=== PATIENT | female | born 1980 | race African-American/Black ===

== ENCOUNTER 2018-05-09 10:57 | Emergency (ER) | payer SELFPAY ==
--- OUTSIDE RECORDS SUMMARY | 2018-05-09 11:01 | XMS REPORT | Clinical Summary ---
:1980 Author Organization [facility] Address [address] [place] [address] Phone Care Team Providers Name Role Phone Unavailable Primary Care Provider Unavailable Allergies No Known Allergies Current Medications No known medications Active Problems Problem Noted Date Conversion disorder 07/08/2017 Depression, unspecified depression type 07/08/2017 Acute ischemic stroke ([facility]) 07/04/2017 Encounters Date Type Specialty Care Team Description 07/04/2017 - Hospital Encounter General Internal Lazaridis, Acute ischemic 07/08/2017 Medicine MD Ben stroke ([facility]);Left Naila Devries, hemiplegia ([facility]);Other [place], constipation;Convers Toy Porter MD ion disorder;Depression, unspecified depression type after 05/08/2017 Family History Medical History Relation Name Comments Diabetes Mother Lupus Neg Hx Relation Name Status Comments Mother Social History Tobacco Use Types Packs/Day Years Used Date Never Smoker Sex Assigned at Date Recorded Not on file Last Filed Vital Signs Vital Sign Reading Time Taken Blood Pressure 112/74 07/08/2017 3:00 PM CDT Pulse 90 07/08/2017 3:00 PM CDT Temperature 35.9 C (96.6 F) 07/08/2017 3:00 PM CDT Respiratory Rate 18 07/08/2017 3:00 PM CDT Oxygen Saturation 90% 07/08/2017 3:00 PM CDT Inhaled Oxygen Concentration - - Weight 59.2 kg (130 lb 8.2 oz) 07/04/2017 3:00 PM CDT Height 160 cm (5' 3") 07/04/2017 3:00 PM CDT Body Mass Index 23.12 07/04/2017 3:00 PM CDT Plan of Treatment Not on file Results ECHOCARDIOGRAM REPORT - SCAN (09/12/2017 11:01 AM)RHYTHM STRIP - SCAN (2016 2:11 PM)CBC with platelet count + automated diff (07/07/2017 4:52 AM) Only the most recent of3 resultswithin the time period is included. Component Value Ref Range WBC 5.5 3.5 - 10.5 K/L RBC 4.09 3.93 - 5.22 M/L Hemoglobin 12.5 11.2 - 15.7 GM/DL Hematocrit 36.6 34.1 - 44.9 % MCV 89.5 79.4 - 94.8 fL MCH 30.6 25.6 - 32.2 pg MCHC 34.2 32.2 - 35.5 GM/DL RDW 13.5 11.7 - 14.4 % Platelets 270 150 - 450 K/CU MM MPV 10.1 9.4 - 12.3 fL nRBC 0 0 - 0 /100 WBC % Neutros 60 % % Lymphs 30 % % Monos 8 % % Eos 2 % % Baso 0 % # Neutros 3.29 1.56 - 6.13 K/L # Lymphs 1.62 1.18 - 3.74 K/L # Monos 0.42 (H) 0.24 - 0.36 K/L # Eos 0.11 0.04 - 0.36 K/L # Baso 0.01 0.01 - 0.08 K/L Immature Granulocytes-Relative 0 0 - 1 % Specimen Performing Laboratory Blood [facility] [address] [address] CBC with platelet count + automated diff (07/07/2017 4:52 AM)Only the most recent of3 resultswithin the time period is included. Specimen Performing Laboratory Blood Narrative The following orders were created for panel order CBC with platelet count + automated diff. Procedure Abnormality Status --------- ------ CBC with platelet count ...[[id number]]AbnormalFinal result Please view results for these tests on the individual orders. Basic Metabolic Panel (07/07/2017 4:52 AM)Only the most recent of3 resultswithin the time period is included. Component Value Ref Range Sodium 140 136 - 145 meq/L Potassium 4.1 3.5 - 5.1 meq/L Chloride 109 (H) 98 - 107 meq/L CO2 22 22 - 29 meq/L BUN 8 7 - 21 mg/dL Creatinine 1.02 0.57 - 1.25 mg/dL Glucose 86 70 - 105 mg/dL Calcium 10.2 8.4 - 10.2 mg/dL EGFR 74Comment: ESTIMATED GFR IS NOT ACCURATE mL/min/1.73 sq m CREATININE CLEARANCE IN PREDICTING GLOMERULAR FILTRATION RATE. ESTIMATED GFR IS NOT APPLICABLE FOR DIALYSIS PATIENTS. Specimen Performing Laboratory Blood [address] [address] POC-Glucose meter (07/06/2017 6:29 AM)Only the most recent of6 resultswithin the time period is included. Component Value Ref Range POC-Glucose Meter 103Comment: TESTED AT [address] 70 - 110 mg/dL [id number] Specimen Performing Laboratory Blood [address] [address] Manual Differential (07/06/2017 4:04 AM) Component Value Ref Range Total Counted Specimen Performing Laboratory Blood - Arm, [address] [address] Sedimentation rate (07/06/2017 4:04 AM) Component Value Ref Range Sed Rate 21 (H) 0 - 20 mm/HR Specimen Performing Laboratory Blood - Arm, [address] [address] MR brain without IV contrast (07/05/2017 10:36 PM) Specimen Performing Laboratory GE RIS Narrative FINAL REPORT EXAMINATION: BRAIN MRI INDICATION: STROKE Technique: Multiplanar imaging was performed with multiple pulse sequences including sagittal T1, coronal T1, axial FLAIR, axial T2, axial gradient echo and axial diffusion with ADC mapping. FINDINGS: Compared with brain CTA 07/04/2017. Brain MRI: No evidence of acute intracranial hemorrhage, mass effect, edema, hydrocephalus, midline shift or abnormal extra-axial fluid collection. The ventricles are normal in caliber. No evidence of restricted diffusion with a matching ADC defect. The intracranial extra-axial structures are unremarkable. Appropriate flow flow voids are noted within the major dural sinuses as well as the vessels of the [place]. The orbits are unremarkable. The paranasal sinuses, tympanic cavities and mastoid air cells are well pneumatized. IMPRESSION: Unremarkable brain MRI. No evidence of restricted diffusion / acute ischemia. Signed: Obdulia Felipe MD Report Verified Date/Time:07/05/2017 23:30:05 Reading Location: [address] Reading Room Procedure Note Interface, External Ris In - 07/05/2017 11:32 PM CDT FINAL REPORT EXAMINATION: BRAIN MRI INDICATION: STROKE Technique: Multiplanar imaging was performed with multiple pulse sequences including sagittal T1, coronal T1, axial FLAIR, axial T2, axial gradient echo and axial diffusion with ADC mapping. FINDINGS: Compared with brain CTA 07/04/2017. Brain MRI: No evidence of acute intracranial hemorrhage, mass effect, edema, hydrocephalus, midline shift or abnormal extra-axial fluid collection. The ventricles are normal in caliber. No evidence of restricted diffusion with a matching ADC defect. The intracranial extra-axial structures are unremarkable. Appropriate flow flow voids are noted within the major dural sinuses as well as the vessels of the [place]. The orbits are unremarkable. The paranasal sinuses, tympanic cavities and mastoid air cells are well pneumatized. IMPRESSION: Unremarkable brain MRI. No evidence of restricted diffusion / acute ischemia. Signed: Obdulia Felipe MD Report Verified Date/Time: 07/05/2017 23:30:05 Reading Location: [address] Reading Room 2D Echo W/Doppler(CW/PW/Color) with saline (07/05/2017 10:51 AM) Component Value Ref Range Ejection Fraction Specimen Performing Laboratory [facility] Narrative Transthoracic Echocardiography Report (TTE) Demographics Patient NameTAYLOR, DARLADate of Study 2016 GenderFemale Visit [id number] RaceBlack Number [id number] Number Date of 1980 Referring Physician Age 37 year(s) Private Watchman Mariann Downing [facility] Interpret Wili Tarango MD FellowAlexander Postkarthikeyan Lugo MD Procedure Type of Study TTE procedure:2DECHO W DOPPLER(CW/PW/COLOR) (Routine) Indications:Stroke . Clinical History ACUTE ISCHEMIC STROKE HGB 10.9 HCT 32.7 % Contrast Medium: Bubble Study. Height: 63 inches Weight: 58.97 kg (130 lbs) BSA: 1.61 m^2 BMI: 23.03 kg/m^2 HR: 91 bpm BP: 104/70 mmHg Summary IV saline contrast injection was negative for a PFO (patent foramen ovale) at rest and post Valsalva . The left ventricle is chamber size (by vol index) is normal (female - LVED vol - 29-61ml/m2). No evidence of LV hypertrophy. All of the LV segments have mildly decreased systolic function The basal, mid and apical inferolateral pitts are hypokinetic EF by quantitative estimation is 45-49% Grade I diastolic dysfunction A trace of tricuspid regurgitation. Estimated peak systolic pressure is at least 20-25 mmHg. Previous Study No prior exam available for comparison. Signature Findings Rhythm/BPRegular rhythm during the exam. Left Ventricle The left ventricle is chamber size (by vol index) is normal (female - LVED vol - 29-61ml/m2). No evidence of LV hypertrophy. All of the LV segments have mildly decreased systolic function The basal, mid and apical inferolateral pitts are hypokinetic EF by quantitative estimation is 45-49% Grade I diastolic dysfunction Left AtriumLA size is normal . Right VentricleRV chamber size is mildly enlarged . Global RV systolic function is preserved. Right Atrium RA size - normal. Atrial SeptumIV saline contrast injection was negative for a PFO (patent foramen ovale) at rest and post Valsalva . Aortic Valve Normal AoV structure and function. Mitral Valve Normal MV structure and function. Tricuspid ValveNormal TV structure and function by available views and Doppler. A trace of tricuspid regurgitation. Estimated peak systolic pressure is at least 20-25 mmHg. Pulmonic Valve PV is not well visualized; function appears normal by Doppler visualized. AortaAortic root size (SInus of Valsalva diameter) is normal . PericardiumNo significant pericardial effusion is visualized. IVC/SVC/PA/PV/PleuralThe inferior vena cava size is normal . The estimated RA pressure by IVC dynamics is approximately 5-10mmHg . Chambers/Structures Left Atrium LA Volume: 31.39 ml LA Area: 13.71 cm^ 2 LA Vol. Index: 19 ml/m^2 Left Ventricle LVIDd: 3.62 cmLVEDV 2D :55.3 ml LVIDs: 2.8 cm LVESV 2D :29.45 ml LV Septum Diastolic: 0.83 cm LV Septum Systolic: 1.07 cm LV PW Diastolic: 0.8 cm LV FS: 22.7 % LV PW Systolic: 1.11 cm LV ESV (Cubed): 21.95 cc LVOT Diameter: 1.8 cm LV ESV (Teich):29.55 ml LV SV (Teich):25.61 ml LV SI (Teich):15.91 ml/m^2 LVEF 2D Teich: 46.8 % Shunts QS:45.63 ml Doppler/Quantitative Measurements LVOT Peak Velocity: 0.91 m/s Peak Gradient: 3.3 mmHg Mean Velocity: 0.57 m/s Mean Gradient: 1.54 mmHg LVOT Diameter: 1.8 cm LVOT VTI: 17.93 cm LVOT Area: 2.54 cm^2LVOT SV:45.6 ml LVOT CO: 4.15 l/min LVOT CI: 2.58 l/min/m^2 Tricuspid Valve TR Velocity: 2.12 m/s TR Gradient: 17.98 mmHg Procedure Note Interface, External Ris In - 07/05/2017 6:02 PM CDT Transthoracic Echocardiography Report (TTE) Demographics Patient Name MARIANNA SWANSON Date of Study 07/05/2017 Gender Female Visit Number [id number] Race Black Room Number [id number] Number Date of 1980 Referring Physician Age 37 year(s) Private Watchman Mariann Downing RDCS Interpreting Juan Tarango MD Fellow Boogie Lugo MD Procedure Type of Study TTE procedure:2DECHO W DOPPLER(CW/PW/COLOR) (Routine) Indications:Stroke . Clinical History ACUTE ISCHEMIC STROKE HGB 10.9 HCT 32.7 % Contrast Medium: Bubble Study. Height: 63 inches Weight: 58.97 kg (130 lbs) BSA: 1.61 m^2 BMI: 23.03 kg/m^2 HR: 91 bpm BP: 104/70 mmHg Summary IV saline contrast injection was negative for a PFO (patent foramen ovale) at rest and post Valsalva . The left ventricle is chamber size (by vol index) is normal (female - LVED vol - 29-61ml/m2). No evidence of LV hypertrophy. All of the LV segments have mildly decreased systolic function The basal, mid and apical inferolateral pitts are hypokinetic EF by quantitative estimation is 45-49% Grade I diastolic dysfunction A trace of tricuspid regurgitation. Estimated peak systolic pressure is at least 20-25 mmHg. Previous Study No prior exam available for comparison. Signature Findings Rhythm/BP Regular rhythm during the exam. Left Ventricle The left ventricle is chamber size (by vol index) is normal (female - LVED vol - 29-61ml/m2). No evidence of LV hypertrophy. All of the LV segments have mildly decreased systolic function The basal, mid and apical inferolateral pitts are hypokinetic EF by quantitative estimation is 45-49% Grade I diastolic dysfunction Left Atrium LA size is normal . Right Ventricle RV chamber size is mildly enlarged . Global RV systolic function is preserved. Right Atrium RA size - normal. Atrial Septum IV saline contrast injection was negative for a PFO (patent foramen ovale) at rest and post Valsalva . Aortic Valve Normal AoV structure and function. Mitral Valve Normal MV structure and function. Tricuspid Valve Normal TV structure and function by available views and Doppler. A trace of tricuspid regurgitation. Estimated peak systolic pressure is at least 20-25 mmHg. Pulmonic Valve PV is not well visualized; function appears normal by Doppler visualized. Aorta Aortic root size (SInus of Valsalva diameter) is normal . Pericardium No significant pericardial effusion is visualized. IVC/SVC/PA/PV/Pleural The inferior vena cava size is normal . The estimated RA pressure by IVC dynamics is approximately 5-10mmHg . Chambers/Structures Left Atrium LA Volume: 31.39 ml LA Area: 13.71 cm^2 LA Vol. Index: 19 ml/m^2 Left Ventricle LVIDd: 3.62 cm LVEDV 2D:55.3 ml LVIDs: 2.8 cm LVESV 2D:29.45 ml LV Septum Diastolic: 0.83 cm LV Septum Systolic: 1.07 cm LV PW Diastolic: 0.8 cm LV FS: 22.7 % LV PW Systolic: 1.11 cm LV ESV (Cubed):21.95 cc LVOT Diameter: 1.8 cm LV ESV (Teich):29.55 ml LV SV (Teich):25.61 ml LV SI (Teich):15.91 ml/m^2 LVEF 2D Teich: 46.8 % Shunts QS:45.63 ml Doppler/Quantitative Measurements LVOT Peak Velocity: 0.91 m/s Peak Gradient: 3.3 mmHg Mean Velocity: 0.57 m/s Mean Gradient: 1.54 mmHg LVOT Diameter: 1.8 cm LVOT VTI: 17.93 cm LVOT Area: 2.54 cm^2 LVOT SV:45.6 ml LVOT CO: 4.15 l/min LVOT CI: 2.58 l/min/m^2 Tricuspid Valve TR Velocity: 2.12 m/s TR Gradient: 17.98 mmHg Beta-2 glycoprotein antibodies (07/05/2017 4:48 AM) Component Value Ref Range B2 Glcoprotein Ab Profile Refer to individual B2-Glycoprotein IgG, IgM and IgA results. Specimen Performing Laboratory Blood [facility] [address] [place] [address] Hexagonal Phospholipid (07/05/2017 4:47 AM) Component Value Ref Range Hexagonal Phospholipid Negative Specimen Performing Laboratory Blood [address] [address] Vitamin B12 and Folate (07/05/2017 4:47 AM) Component Value Ref Range Vitamin B12 726 213 - 816 pg/mL Folate 12.3 >=7.0 ng/mL Specimen Performing Laboratory [address] [address] Narrative Effective 10/07/2014: Folate Reference Range Change New: >=7.0Previous: >=5.4 TSH/Free T4 If Indicated (07/05/2017 4:47 AM) Component Value Ref Range TSH 3.65 0.35 - 4.94 uIU/mL Specimen Performing Laboratory [address] [address] Troponin I (07/05/2017 4:47 AM) Component Value Ref Range Troponin I 0.01 0.00 - 0.03 ng/mL Specimen Performing Laboratory [address] [address] Narrative Effective 10/07/2014: Reference Range Change New: 0.00-0.03 Previous 0.00-0.15 Troponin I (TnI) levels must be interpreted in the context of the presenting symptoms and the clinical findings. Elevated TnI levels indicate myocardial damage, but are not specific for ischemic heart disease. Elevated TnI levels are seen in patients with other cardiac conditions (including myocarditis and congestive heart failure), and slight TnI elevations occur in patients with other conditions, including sepsis, renal failure, acidosis, acute neurological disease, and persistent tachyarrhythmia. Fasting Rheumatoid factor Ab, reflex to titer (07/05/2017 4:47 AM) Component Value Ref Range Rheumatoid Factor Negative Specimen Performing Laboratory [address] [address] RPR (07/05/2017 4:47 AM) Component Value Ref Range RPR Nonreactive Nonreactive Specimen Performing Laboratory [address] [address] Cardiolipin Antibodies, IgG and IgM (07/05/2017 4:47 AM) Component Value Ref Range Anticardiolipin IgG <1.6 GPL Anticardiolipin IgM 0.2 MPL Specimen Performing Laboratory Blood [address] [address] Narrative Anticardiolipin IgG Result Interpretation: NEG:<20 GPL;U/ml POS:>/=20 GPL;U/ml Anticardiolipin IgM Result Interpretation: NEG:<20 MPL;U/ml POS:>/=20 MPL;U/ml Prothrombin time/INR (07/05/2017 4:47 AM) Component Value Ref Range Protime 14.3 11.7 - 14.7 seconds INR 1.1 <=5.9 Specimen Performing Laboratory Blood [place] [id number] Narrative RECOMMENDED COUMADIN/WARFARIN INR THERAPY RANGES STANDARD DOSE: 2.0 - 3.0 Includes: PROPHYLAXIS for venous thrombosis, systemic embolization; TREATMENT for venous thrombosis and/or pulmonary embolus. HIGH RISK: Target INR is 2.5-3.5 for patients with mechanical heart valves. Dilute Jesse Viper Venom (DRVV) (07/05/2017 4:47 AM) Component Value Ref Range Protime 14.5 11.7 - 14.7 seconds INR 1.1 <=5.9 PTT 28.6 22.5 - 36.0 seconds Interpretations Negative screen for Lupus Anticoagulant Pathologist: Angel Hamilton M.D. (electonic signature) DRVV Screen Ratio 0.59 <1.20 Specimen Performing Laboratory Blood [address] [address] Narrative Effective 03/25/2014: Test Method Change DRVV Screen Ratio, DRVV 1/1 Screen Ratio, DRVV Confirm Ratio, DRVV Normalized Ratio Reference Range: <1.2 Protime Reference Range Change New: 11.7-14.7Previous: 9.8-12.0 PTT Reference Range Change New: 22.5-36.0Previous: 25.8-34.5 Anti-Nuclear Antibody (MEI) (07/05/2017 4:47 AM) Component Value Ref Range MEI Negative Negative Specimen Performing Laboratory Blood [address] [address] Hemoglobin A1c - Fasting (07/05/2017 4:47 AM) Component Value Ref Range Hemoglobin A1C 5.0Comment: POSSIBLE HEMOGLOBIN S VARIANT NOTED IN 4.3 - 6.1 % HEMOGLOBIN A1C CHROMATOGRAPH. SUGGEST HEMOGLOBIN ELECTROPHORESIS IF CLINICALLY INDICATED. Specimen Performing Laboratory Blood [address] [address] Narrative Fasting Creatine Kinase (CK), Total and MB (07/05/2017 4:47 AM) Component Value Ref Range Total CK 100 29 - 200 U/L CK-MB 0.4 0.0 - 6.6 ng/mL MB Relative Index 0.4 % Specimen Performing Laboratory Blood [address] [address] Narrative Effective 10/07/2014: CK-MB Reference Range Change New: 0.0-6.6Previous: 0.0-4.9 CK-MB Reference Range: <6.7Normal 6.7-10.0Borderline >10.0 Abnormal Fasting Fasting Hepatic function panel (07/05/2017 4:47 AM) Component Value Ref Range Protein, Total 6.1 6.0 - 8.3 gm/dL Albumin 3.2 (L) 3.5 - 5.0 g/dL Total Bilirubin 0.5 0.2 - 1.2 mg/dL Bilirubin, Direct 0.2 0.1 - 0.5 mg/dL Alkaline Phosphatase 54 40 - 150 U/L AST 14 5 - 34 U/L ALT 6 6 - 55 U/L Specimen Performing Laboratory Blood [address] [address] Narrative Fasting Fasting lipid panel (07/05/2017 4:47 AM) Component Value Ref Range Triglycerides 65 mg/dL Cholesterol 140 mg/dL HDL 39 mg/dL LDL Calculated 88 mg/dL Specimen Performing Laboratory Blood [address] [address] Narrative Triglyceride Reference Range: Low Risk <150 [id number] High Risk 200-499 Very High Risk>=500 Cholesterol Reference Range: Low Risk <200 [id number] High Risk>240 HDL Cholesterol Reference Range: Low Risk >=60 High Risk <40 LDL Cholesterol Reference Range: Optimal<100 Near Uiqodsb081-005 [id number] Very High >=190 Fasting Rapid drug screen, urine (07/04/2017 3:59 PM) Component Value Ref Range Barbiturate Screen Negative Negative Benzodiazepine Screen Negative Negative Cocaine (Metab.) Screen Negative Negative Methadone Screen Negative Negative Opiate Screen Negative Negative Cannabinoid Screen Negative Negative Amph/Methamph Screen Negative Negative Phencyclidine Screen Negative Negative Oxycodone Screen Negative Negative Specimen Performing Laboratory Urine - Urine, Voided [address] [address] Narrative DRUGCUTOFF CONC. Cocaine 300 ng/mL Gzpoxfaxgav31 ng/mL Hualospjtrehlr140 ng/mL Barbiturate 200 ng/mL Jvjqilmsjofpu51 ng/mL Gmkgvr369 ng/mL Methadone 300 ng/mL Amphetamine/ 1000 ng/mL Methamphetamine Oxycodone 300 ng/mL This assay provides an unconfirmed qualitative test result for the clinical management of patients in emergency situations. Chain of custody not maintained. Some wvrh-xhi-njrrbpe medications, as well as adulterants, may cause inaccurate results. Clinical correlation should be applied. A more comprehensive drug screen or confirmation of a detected drug may be performed upon request. Urinalysis w/Microscopic (07/04/2017 3:59 PM) Component Value Ref Range Color, UA Yellow Clarity, UA Hazy Specific [place], UA 1.016 1.001 - 1.035 pH, UA 6.5 5.0 - 8.0 Protein, UA 20 mg/dL (A) Negative Glucose, UA Negative Negative Ketones, UA Trace (A) Negative Bilirubin, UA Negative Negative Blood, UA Large (A) Negative Nitrite, UA Negative Negative Leukocytes, UA Negative Negative Urobilinogen, UA 0.2 0.2 - 1.0 mg/dL RBC, UA 102 /HPF WBC, UA 19 /HPF Squam Epithel, UA 6 /HPF Specimen Source Urine, Voided Specimen Performing Laboratory Urine - Urine, Voided [address] [address] ECG 12 lead (07/04/2017 3:26 PM) Specimen Performing Laboratory GE MUSE Narrative Ventricular Rate 74 BPM Atrial Rate 74 BPM P-R Interval 136 ms QRS Duration 80 ms Q-T Interval 392 ms QTC Calculation(Bazett) 435 ms P [place] 45 degrees R [place] 64 degrees T [place] 50 degrees Normal sinus rhythm Normal ECG No previous ECGs available Confirmed by Kalia HENSLEY MICHAEL ([id number]) on 07/05/2017 8:03:54 AM Procedure Note Interface, External Ris In - 07/05/2017 8:04 AM CDT Ventricular Rate 74 BPM Atrial Rate 74 BPM P-R Interval 136 ms QRS Duration 80 ms Q-T Interval 392 ms QTC Calculation(Bazett) 435 ms P [place] 45 degrees R [place] 64 degrees T [place] 50 degrees Normal sinus rhythm Normal ECG No previous ECGs available Confirmed by Kalia HENSLEY MICHAEL ([id number]) on 07/05/2017 8:03:54 AM CTA carotid (07/04/2017 3:00 PM) Specimen Performing Laboratory GE RIS Narrative FINAL REPORT CTA head and neck with contrast INDICATION: Stroke, right MCA syndrome. TECHNIQUE: Axial noncontrast CT images of the head were obtained. Subsequently, axial intravenous contrast enhanced CTA images of the head and neck were obtained. Multiplanar and 3-D volume rendered reconstruction images were generated on a separate workstation for better delineation of the vascular anatomy. This exam was performed according to our departmental dose optimization program which includes automated exposure control, adjustment of the mA and/or kV according to patient size and/or use of iterative reconstruction technique. COMPARISON: None available FINDINGS: CTA neck: There is conventional aortic arch anatomy. There are motion and vascular pulsation artifacts in the proximal great vessels and streak artifact from venous contrast. No significant proximal great vessel stenosis is seen. The common carotid arteries demonstrate no focal stenosis. There is no evident cervical ICA stenosis bilaterally by NASCET criteria. There is mild ectasia of the bilateral distal cervical ICA segments proximal to the skull base. The proximal external carotid arteries are unremarkable. The proximal right cervical vertebral artery is obscured by artifact from venous contrast. The remainder of the right vertebral artery demonstrates no focal stenosis. The left vertebral artery is mildly tortuous but without focal stenosis. CTA head: The proximal [place] vessels penetrate no significant stenosis or major branch occlusion. The communicating arteries are patent. No saccular aneurysm is identified. Other findings: The noncontrast head CT demonstrates no acute hemorrhage or mass effect. There are possible subtle acute ischemic changes in the right suprasylvian frontal lobe and perirolandic region. There is cervical spondylosis without high grade spinal canal stenosis. IMPRESSION: 1. Artifacts from motion, vascular pulsation, and dense venous contrast as discussed. 2. No cervical ICA stenosis bilaterally by NASCET criteria. 3. Obscured proximal right cervical vertebral artery. Otherwise no significant vertebral artery stenosis seen. 4. No [place] major branch occlusion or significant proximal stenosis. 5. Subtle lucency in the right suprasylvian frontal lobe and lateral perirolandic region which could indicate acute ischemia given the history. Advise MRI for further characterization. Findings discussed with ICU neurology team at 3:05 PM Signed: Eh Matt MD Report Verified Date/Time:07/04/2017 15:15:25 Reading Location: [facility] [id number] Neuro Reading Room Procedure Note Interface, External Ris In - 07/04/2017 3:27 PM CDT FINAL REPORT CTA head and neck with contrast INDICATION: Stroke, right MCA syndrome. TECHNIQUE: Axial noncontrast CT images of the head were obtained. Subsequently, axial intravenous contrast enhanced CTA images of the head and neck were obtained. Multiplanar and 3-D volume rendered reconstruction images were generated on a separate workstation for better delineation of the vascular anatomy. This exam was performed according to our departmental dose optimization program which includes automated exposure control, adjustment of the mA and/or kV according to patient size and/or use of iterative reconstruction technique. COMPARISON: None available FINDINGS: CTA neck: There is conventional aortic arch anatomy. There are motion and vascular pulsation artifacts in the proximal great vessels and streak artifact from venous contrast. No significant proximal great vessel stenosis is seen. The common carotid arteries demonstrate no focal stenosis. There is no evident cervical ICA stenosis bilaterally by NASCET criteria. There is mild ectasia of the bilateral distal cervical ICA segments proximal to the skull base. The proximal external carotid arteries are unremarkable. The proximal right cervical vertebral artery is obscured by artifact from venous contrast. The remainder of the right vertebral artery demonstrates no focal stenosis. The left vertebral artery is mildly tortuous but without focal stenosis. CTA head: The proximal [place] vessels penetrate no significant stenosis or major branch occlusion. The communicating arteries are patent. No saccular aneurysm is identified. Other findings: The noncontrast head CT demonstrates no acute hemorrhage or mass effect. There are possible subtle acute ischemic changes in the right suprasylvian frontal lobe and perirolandic region. There is cervical spondylosis without high grade spinal canal stenosis. IMPRESSION: 1. Artifacts from motion, vascular pulsation, and dense venous contrast as discussed. 2. No cervical ICA stenosis bilaterally by NASCET criteria. 3. Obscured proximal right cervical vertebral artery. Otherwise no significant vertebral artery stenosis seen. 4. No [place] major branch occlusion or significant proximal stenosis. 5. Subtle lucency in the right suprasylvian frontal lobe and lateral perirolandic region which could indicate acute ischemia given the history. Advise MRI for further characterization. 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 TECHNIQUE: Axial noncontrast CT images of the head were obtained. Subsequently, axial intravenous contrast enhanced CTA images of the head and neck were obtained. Multiplanar and 3-D volume rendered reconstruction images were generated on a separate workstation for better delineation of the vascular anatomy. This exam was performed according to our departmental dose optimization program which includes automated exposure control, adjustment of the mA and/or kV according to patient size and/or use of iterative reconstruction technique. COMPARISON: None available FINDINGS: CTA neck: There is conventional aortic arch anatomy. There are motion and vascular pulsation artifacts in the proximal great vessels and streak artifact from venous contrast. No significant proximal great vessel stenosis is seen. The common carotid arteries demonstrate no focal stenosis. There is no evident cervical ICA stenosis bilaterally by NASCET criteria. There is mild ectasia of the bilateral distal cervical ICA segments proximal to the skull base. The proximal external carotid arteries are unremarkable. The proximal right cervical vertebral artery is obscured by artifact from venous contrast. The remainder of the right vertebral artery demonstrates no focal stenosis. The left vertebral artery is mildly tortuous but without focal stenosis. CTA head: The proximal [place] vessels penetrate no significant stenosis or major branch occlusion. The communicating arteries are patent. No saccular aneurysm is identified. Other findings: The noncontrast head CT demonstrates no acute hemorrhage or mass effect. There are possible subtle acute ischemic changes in the right suprasylvian frontal lobe and perirolandic region. There is cervical spondylosis without high grade spinal canal stenosis. IMPRESSION: 1. Artifacts from motion, vascular pulsation, and dense venous contrast as discussed. 2. No cervical ICA stenosis bilaterally by NASCET criteria. 3. Obscured proximal right cervical vertebral artery. Otherwise no significant vertebral artery stenosis seen. 4. No [place] major branch occlusion or significant proximal stenosis. 5. Subtle lucency in the right suprasylvian frontal lobe and lateral perirolandic region which could indicate acute ischemia given the history. Advise MRI for further characterization. Findings discussed with ICU neurology team at 3:05 PM Signed: Eh Matt MD Report Verified Date/Time:07/04/2017 15:15:25 Reading Location: [facility] C013 Neuro Reading Room Procedure Note Interface, External Ris In - 07/10/2017 7:04 PM CDT FINAL REPORT CTA head and neck with contrast INDICATION: Stroke, right MCA syndrome. TECHNIQUE: Axial noncontrast CT images of the head were obtained. Subsequently, axial intravenous contrast enhanced CTA images of the head and neck were obtained. Multiplanar and 3-D volume rendered reconstruction images were generated on a separate workstation for better delineation of the vascular anatomy. This exam was performed according to our departmental dose optimization program which includes automated exposure control, adjustment of the mA and/or kV according to patient size and/or use of iterative reconstruction technique. COMPARISON: None available FINDINGS: CTA neck: There is conventional aortic arch anatomy. There are motion and vascular pulsation artifacts in the proximal great vessels and streak artifact from venous contrast. No significant proximal great vessel stenosis is seen. The common carotid arteries demonstrate no focal stenosis. There is no evident cervical ICA stenosis bilaterally by NASCET criteria. There is mild ectasia of the bilateral distal cervical ICA segments proximal to the skull base. The proximal external carotid arteries are unremarkable. The proximal right cervical vertebral artery is obscured by artifact from venous contrast. The remainder of the right vertebral artery demonstrates no focal stenosis. The left vertebral artery is mildly tortuous but without focal stenosis. CTA head: The proximal [place] vessels penetrate no significant stenosis or major branch occlusion. The communicating arteries are patent. No saccular aneurysm is identified. Other findings: The noncontrast head CT demonstrates no acute hemorrhage or mass effect. There are possible subtle acute ischemic changes in the right suprasylvian frontal lobe and perirolandic region. There is cervical spondylosis without high grade spinal canal stenosis. IMPRESSION: 1. Artifacts from motion, vascular pulsation, and dense venous contrast as discussed. 2. No cervical ICA stenosis bilaterally by NASCET criteria. 3. Obscured proximal right cervical vertebral artery. Otherwise no significant vertebral artery stenosis seen. 4. No [place] major branch occlusion or significant proximal stenosis. 5. Subtle lucency in the right suprasylvian frontal lobe and lateral perirolandic region which could indicate acute ischemia given the history. Advise MRI for further characterization. Findings discussed with ICU neurology team at 3:05 PM Signed: Eh Matt MD Report Verified Date/Time: 07/04/2017 15:15:25 Reading Location: [facility] C013V Neuro Reading Room after 05/08/2017
--- OUTSIDE RECORDS SUMMARY | 2018-05-09 11:02 | XMS REPORT ---
:1980 [facility] [address] [place] [address] Care Team Providers Name Role Phone JUANA MODI Unavailable Unavailable Problems This patient has no known problems. Allergies, Adverse Reactions, Alerts This patient has no known allergies or adverse reactions. Medications This patient has no known medications. Results Test Description Test Time Test Comments Text Results Atomic Results Result Comments DILUTE [facility]ARD [facility]ER [facility]OM (DRVV) 2017-07-10 14:40:00 Test Item Value Reference Range Comments PROTIME (BEAKER) (test dfxl=725) 14.5 seconds 11.7-14.7 INR (BEAKER) (test yjmb=108) 1.1 <=5.9 PARTIAL THROMBOPLASTIN TIME (BEAKER) 28.6 seconds 22.5-36.0 (test adhy=782) DRVV INTERPRETATION (BEAKER) (test Negative screen for Lupus wcvq=0559) Anticoagulant [id number] (BEAKER) (test Angel Hamilton M.D. (electonic fzho=9617) signature) DRVV SCREEN RATIO (BEAKER) (test 0.59 <1.20 ifku=8354) Effective 03/25/2014: Test Method ChangeDRVV Screen Ratio, DRVV 1/1 Screen Ratio, DRVV Confirm Ratio,DRVV Normalized Ratio Reference Range: <1.2Protime Reference Range ChangeNew: 11.7-14.7 Previous: 9.8-12.0PTT Reference Range ChangeNew: 22.5-36.0 Previous: 25.8-34.5HEXAGONAL [id number] 12:56: 00 Test Item Value Reference Range Comments HEXAGONAL PHOSPHOLIPID (BEAKER) (test cdye=3703) Negative BASIC METABOLIC [id number] 05:51:00 Test Item Value Reference Range Comments SODIUM (BEAKER) (test 140 meq/L 136-145 fjmg=180) POTASSIUM (BEAKER) (test 4.1 meq/L 3.5-5.1 yuso=154) CHLORIDE (BEAKER) (test 109 meq/L 98-107 idyp=784) CO2 (BEAKER) (test 22 meq/L 22-29 wfwo=311) BLOOD UREA NITROGEN 8 mg/dL 7-21 (BEAKER) (test sqee=429) CREATININE (BEAKER) (test 1.02 mg/dL 0.57-1.25 pann=498) GLUCOSE RANDOM (BEAKER) 86 mg/dL 70-105 (test jmkc=068) CALCIUM (BEAKER) (test 10.2 mg/dL 8.4-10.2 mkwi=303) EGFR (BEAKER) (test 74 mL/min/1.73 sq m ESTIMATED GFR IS NOT czlh=6196) ACCURATE CREATININE CLEARANCE IN PREDICTING GLOMERULAR FILTRATION RATE. ESTIMATED GFR IS NOT APPLICABLE FOR DIALYSIS PATIENTS. CBC W/PLT COUNT & AUTO [id number] 05:29:00 Test Item Value Reference Range Comments WHITE BLOOD CELL COUNT (BEAKER) (test nryv=042) 5.5 K/ L 3.5-10.5 RED BLOOD CELL COUNT (BEAKER) (test tbzq=771) 4.09 M/ L 3.93-5.22 HEMOGLOBIN (BEAKER) (test wlpa=111) 12.5 GM/DL 11.2-15.7 HEMATOCRIT (BEAKER) (test tyfs=792) 36.6 % 34.1-44.9 MEAN CORPUSCULAR VOLUME (BEAKER) (test puwz=187) 89.5 fL 79.4-94.8 MEAN CORPUSCULAR HEMOGLOBIN (BEAKER) (test 30.6 pg 25.6-32.2 xvou=170) MEAN CORPUSCULAR HEMOGLOBIN CONC (BEAKER) (test 34.2 GM/DL 32.2-35.5 bopc=383) RED CELL DISTRIBUTION WIDTH (BEAKER) (test 13.5 % 11.7-14.4 xany=493) PLATELET COUNT (BEAKER) (test bwgz=232) 270 K/CU MM 150-450 MEAN PLATELET VOLUME (BEAKER) (test esba=501) 10.1 fL 9.4-12.3 NUCLEATED RED BLOOD CELLS (BEAKER) (test 0 /100 WBC 0-0 jqgt=875) NEUTROPHILS RELATIVE PERCENT (BEAKER) (test 60 % qgbv=028) LYMPHOCYTES RELATIVE PERCENT (BEAKER) (test 30 % wlpy=626) MONOCYTES RELATIVE PERCENT (BEAKER) (test 8 % baio=696) EOSINOPHILS RELATIVE PERCENT (BEAKER) (test 2 % fzyj=903) BASOPHILS RELATIVE PERCENT (BEAKER) (test 0 % udpl=099) NEUTROPHILS ABSOLUTE COUNT (BEAKER) (test 3.29 K/ L 1.56-6.13 aihd=315) LYMPHOCYTES ABSOLUTE COUNT (BEAKER) (test 1.62 K/ L 1.18-3.74 gopi=895) MONOCYTES ABSOLUTE COUNT (BEAKER) (test 0.42 K/ L 0.24-0.36 pjkn=743) EOSINOPHILS ABSOLUTE COUNT (BEAKER) (test 0.11 K/ L 0.04-0.36 dzqu=141) BASOPHILS ABSOLUTE COUNT (BEAKER) (test 0.01 K/ L 0.01-0.08 vdbd=488) IMMATURE GRANULOCYTES-RELATIVE PERCENT (BEAKER) 0 % 0-1 (test imsx=8930) SEDIMENTATION [id number] 10:56:00 Test Item Value Reference Range Comments SEDIMENTATION RATE, ERYTHROCYTE (BEAKER) (test 21 mm/HR 0-20 xdoe=582) CBC W/PLT COUNT & AUTO [id number] 09:30:00 Test Item Value Reference Range Comments WHITE BLOOD CELL COUNT (BEAKER) (test vzzw=698) 5.2 K/ L 3.5-10.5 RED BLOOD CELL COUNT (BEAKER) (test lpdn=305) 3.86 M/ L 3.93-5.22 HEMOGLOBIN (BEAKER) (test zvpm=917) 11.5 GM/DL 11.2-15.7 HEMATOCRIT (BEAKER) (test zjvo=213) 34.4 % 34.1-44.9 MEAN CORPUSCULAR VOLUME (BEAKER) (test nzmt=104) 89.1 fL 79.4-94.8 MEAN CORPUSCULAR HEMOGLOBIN (BEAKER) (test 29.8 pg 25.6-32.2 bdsz=626) MEAN CORPUSCULAR HEMOGLOBIN CONC (BEAKER) (test 33.4 GM/DL 32.2-35.5 ajvq=043) RED CELL DISTRIBUTION WIDTH (BEAKER) (test 13.6 % 11.7-14.4 duml=307) PLATELET COUNT (BEAKER) (test yorx=914) 268 K/CU MM 150-450 MEAN PLATELET VOLUME (BEAKER) (test etgi=893) 9.9 fL 9.4-12.3 NUCLEATED RED BLOOD CELLS (BEAKER) (test 0 /100 WBC 0-0 ofkl=712) NEUTROPHILS RELATIVE PERCENT (BEAKER) (test 43 % ssfo=633) LYMPHOCYTES RELATIVE PERCENT (BEAKER) (test 45 % rbqj=093) MONOCYTES RELATIVE PERCENT (BEAKER) (test 9 % mcda=945) EOSINOPHILS RELATIVE PERCENT (BEAKER) (test 3 % fegz=264) BASOPHILS RELATIVE PERCENT (BEAKER) (test 0 % htts=765) NEUTROPHILS ABSOLUTE COUNT (BEAKER) (test 2.23 K/ L 1.56-6.13 xgee=129) LYMPHOCYTES ABSOLUTE COUNT (BEAKER) (test 2.34 K/ L 1.18-3.74 tllo=132) MONOCYTES ABSOLUTE COUNT (BEAKER) (test 0.45 K/ L 0.24-0.36 yqum=093) EOSINOPHILS ABSOLUTE COUNT (BEAKER) (test 0.16 K/ L 0.04-0.36 zvkq=920) BASOPHILS ABSOLUTE COUNT (BEAKER) (test 0.02 K/ L 0.01-0.08 vurx=828) IMMATURE GRANULOCYTES-RELATIVE PERCENT (BEAKER) 0 % 0-1 (test wppd=7692) (MANUAL DIFFERENTIAL)2017-07-06 09:30:00 Test Item Value Reference Range Comments TOTAL COUNTED (BEAKER) (test wbbs=7144) POCT-GLUCOSE [id number] 06:41:00 Test Item Value Reference Range Comments POC-GLUCOSE METER (BEAKER) 103 mg/dL 70-110 TESTED AT [facility] [address] (test dogk=1005) [facility] [address] BASIC METABOLIC [id number] 05:21:00 Test Item Value Reference Range Comments SODIUM (BEAKER) (test 140 meq/L 136-145 dgtm=497) POTASSIUM (BEAKER) (test 4.0 meq/L 3.5-5.1 qony=840) CHLORIDE (BEAKER) (test 108 meq/L 98-107 hjgz=814) CO2 (BEAKER) (test 23 meq/L 22-29 jvsl=966) BLOOD UREA NITROGEN 6 mg/dL 7-21 (BEAKER) (test bwpa=518) CREATININE (BEAKER) (test 0.96 mg/dL 0.57-1.25 oysl=856) GLUCOSE RANDOM (BEAKER) 92 mg/dL 70-105 (test arvy=559) CALCIUM (BEAKER) (test 9.3 mg/dL 8.4-10.2 bvoc=168) EGFR (BEAKER) (test 79 mL/min/1.73 sq m ESTIMATED GFR IS NOT itfx=3998) ACCURATE CREATININE CLEARANCE IN PREDICTING GLOMERULAR FILTRATION RATE. ESTIMATED GFR IS NOT APPLICABLE FOR DIALYSIS PATIENTS. POCT-GLUCOSE [id number] 23:38:00 Test Item Value Reference Range Comments POC-GLUCOSE METER (BEAKER) 84 mg/dL 70-110 TESTED AT [address] (test ehus=6797) [place] [address] POCT-GLUCOSE [id number] 16:02:00 Test Item Value Reference Range Comments POC-GLUCOSE METER (BEAKER) 80 mg/dL 70-110 TESTED AT [address] (test uiml=3208) [place] [address] ANTI-NUCLEAR ANTIBODY (MEI)2017-07-05 13:36:00 Test Item Value Reference Range Comments ANTI-NUCLEAR ANTIBODY (MEI) (BEAKER) (test Negative Negative yqcg=151) CARDIOLIPIN ANTIBODIES, IGG AND [id number] 13:10:00 Test Item Value Reference Range Comments ANTICARDIOLIPIN IGG ANTIBODY (BEAKER) (test < GPL awmu=584) ANTICARDIOLIPIN IGM ANTIBODY (BEAKER) (test 0.2 MPL byxc=942) Anticardiolipin IgG Result Interpretation:NEG: <20 GPL; U/mlPOS: >/=20 GPL; U/mlAnticardiolipin IgM Result Interpretation:NEG: <20 MPL; U/mlPOS: >/=20 MPL; U/mlPOCT-GLUCOSE [id number] 12:20:00 Test Item Value Reference Range Comments POC-GLUCOSE METER (BEAKER) 76 mg/dL 70-110 TESTED AT [address] (test khun=6957) [place] [address] [id number] 11:07:00 Test Item Value Reference Range Comments RPR SCREEN (BEAKER) (test oqkp=312) Nonreactive Nonreactive RHEUMATOID FACTOR AB, REFLEX TO [id number] 11:03:00 Test Item Value Reference Range Comments RHEUMATOID FACTOR (BEAKER) (test tkbn=226) Negative HEMOGLOBIN [id number] 08:35:00 Test Item Value Reference Range Comments HEMOGLOBIN A1C (BEAKER) (test 5.0 % 4.3-6.1 POSSIBLE HEMOGLOBIN S VARIANT vxtw=151) NOTED IN HEMOGLOBIN A1C CHROMATOGRAPH. SUGGEST HEMOGLOBIN ELECTROPHORESIS IF CLINICALLY INDICATED. FastingPOCT-GLUCOSE [id number] 08:15:00 Test Item Value Reference Range Comments POC-GLUCOSE METER (WebjamAKER) 93 mg/dL 70-110 TESTED AT [facility] [address] [facility] (test abxi=3710) [facility] [address] TSH/FREE T4 IF [id number] 06:26:00 Test Item Value Reference Range Comments THYROID STIMULATING HORMONE (BEAKER) (test 3.65 uIU/mL 0.35-4.94 zydo=018) VITAMIN B12 AND [id number] 06:26:00 Test Item Value Reference Range Comments VITAMIN B12 (BEAKER) (test jckm=509) 726 pg/mL 213-816 FOLATE (BEAKER) (test dner=039) 12.3 ng/mL >=7.0 Effective 10/07/2014: Folate Reference Range ChangeNew: >=7.0 Previous: & gt;=5.4LIPID [id number] 05:56:00 Test Item Value Reference Range Comments TRIGLYCERIDES (BEAKER) (test tofs=973) 65 mg/dL CHOLESTEROL (BEAKER) (test relk=360) 140 mg/dL HDL CHOLESTEROL (BEAKER) (test qolg=435) 39 mg/dL LDL CHOLESTEROL CALCULATED (BEAKER) (test 88 mg/dL svtp=704) Triglyceride Reference Range: Low Risk <150 Borderline 150- 199 High Risk 200-499 Very High Risk >=500Cholesterol Reference Range: Low Risk <200 Borderline 200-239 High Risk > 240HDL Cholesterol Reference Range: Low Risk >=60 High Risk <40LDL Cholesterol Reference Range: Optimal <100 Near Optimal 100-129 Borderline 130-159 High 160-189 Very High >=190 FastingBASIC METABOLIC [id number] 05:56:00 Test Item Value Reference Range Comments SODIUM (BEAKER) (test 142 meq/L 136-145 voeg=246) POTASSIUM (BEAKER) (test 3.5 meq/L 3.5-5.1 qxun=574) CHLORIDE (BEAKER) (test 113 meq/L 98-107 cefj=596) CO2 (BEAKER) (test 22 meq/L 22-29 wwjl=384) BLOOD UREA NITROGEN 6 mg/dL 7-21 (BEAKER) (test kjjz=886) CREATININE (BEAKER) (test 0.79 mg/dL 0.57-1.25 igyz=916) GLUCOSE RANDOM (BEAKER) 84 mg/dL 70-105 (test wfbl=784) CALCIUM (BEAKER) (test 8.2 mg/dL 8.4-10.2 ipxz=150) EGFR (BEAKER) (test 99 mL/min/1.73 sq m ESTIMATED GFR IS NOT dbmn=5396) ACCURATE CREATININE CLEARANCE IN PREDICTING GLOMERULAR FILTRATION RATE. ESTIMATED GFR IS NOT APPLICABLE FOR DIALYSIS PATIENTS. FastingHEPATIC FUNCTION [id number] 05:56:00 Test Item Value Reference Range Comments TOTAL PROTEIN (BEAKER) (test tyrr=544) 6.1 gm/dL 6.0-8.3 ALBUMIN (BEAKER) (test kcom=9216) 3.2 g/dL 3.5-5.0 BILIRUBIN TOTAL (BEAKER) (test abel=255) 0.5 mg/dL 0.2-1.2 BILIRUBIN DIRECT (BEAKER) (test tljn=132) 0.2 mg/dL 0.1-0.5 ALKALINE PHOSPHATASE (BEAKER) (test eplm=657) 54 U/L 40-150 AST (SGOT) (BEAKER) (test hxug=101) 14 U/L 5-34 ALT (SGPT) (BEAKER) (test hpoo=664) 6 U/L 6-55 FastingCREATINE KINASE (CK), TOTAL AND [id number] 05:56:00 Test Item Value Reference Range Comments CREATINE KINASE TOTAL (BEAKER) (test fdww=134) 100 U/L 29-200 CREATINE KINASE-MB (BEAKER) (test ocks=808) 0.4 ng/mL 0.0-6.6 CREATINE KINASE-MB INDEX (BEAKER) (test huic=095) 0.4 % Effective 10/07/2014: CK-MB Reference Range ChangeNew: 0.0-6.6 Previous: 0.0- 4.9CK-MB Reference Range:<6.7 Normal6.7-10.0 Borderline>10.0 AbnormalFastingFastingTROPONIN [id number] 05:54:00 Test Item Value Reference Range Comments TROPONIN I (BEAKER) (test ywnk=153) 0.01 ng/mL 0.00-0.03 Effective 10/07/2014: Reference Range ChangeNew: 0.00-0.03 Previous 0.00- 0.15Troponin I (TnI) levels must be interpreted in the context of the presenting symptoms and the clinical findings. Elevated TnI levels indicate myocardial damage, but are not specific for ischemic heart disease. Elevated TnI levels are seen in patients with other cardiac conditions (including myocarditis and congestive heartfailure), and slight TnI elevations occur in patients with other conditions, including sepsis, renalfailure, acidosis, acute neurological disease, and persistent tachyarrhythmia.FastingCBC W/PLT COUNT &amp ; AUTO [id number] 05:44:00 Test Item Value Reference Range Comments WHITE BLOOD CELL COUNT (BEAKER) (test vdug=782) 4.9 K/ L 3.5-10.5 RED BLOOD CELL COUNT (BEAKER) (test lgip=729) 3.58 M/ L 3.93-5.22 HEMOGLOBIN (BEAKER) (test klmy=270) 10.9 GM/DL 11.2-15.7 HEMATOCRIT (BEAKER) (test acwa=871) 32.7 % 34.1-44.9 MEAN CORPUSCULAR VOLUME (BEAKER) (test xguv=985) 91.3 fL 79.4-94.8 MEAN CORPUSCULAR HEMOGLOBIN (BEAKER) (test 30.4 pg 25.6-32.2 vlmj=299) MEAN CORPUSCULAR HEMOGLOBIN CONC (BEAKER) (test 33.3 GM/DL 32.2-35.5 ilcr=564) RED CELL DISTRIBUTION WIDTH (BEAKER) (test 13.6 % 11.7-14.4 ptya=655) PLATELET COUNT (BEAKER) (test nxmm=568) 258 K/CU MM 150-450 MEAN PLATELET VOLUME (BEAKER) (test nfjl=713) 10.5 fL 9.4-12.3 NUCLEATED RED BLOOD CELLS (BEAKER) (test 0 /100 WBC 0-0 qwvc=040) NEUTROPHILS RELATIVE PERCENT (BEAKER) (test 52 % npok=371) LYMPHOCYTES RELATIVE PERCENT (BEAKER) (test 36 % sjum=015) MONOCYTES RELATIVE PERCENT (BEAKER) (test 10 % aeyl=175) EOSINOPHILS RELATIVE PERCENT (BEAKER) (test 2 % ylhj=469) BASOPHILS RELATIVE PERCENT (BEAKER) (test 0 % qyeu=273) NEUTROPHILS ABSOLUTE COUNT (BEAKER) (test 2.53 K/ L 1.56-6.13 ouqb=308) LYMPHOCYTES ABSOLUTE COUNT (BEAKER) (test 1.74 K/ L 1.18-3.74 gcsn=894) MONOCYTES ABSOLUTE COUNT (BEAKER) (test 0.47 K/ L 0.24-0.36 yipz=616) EOSINOPHILS ABSOLUTE COUNT (BEAKER) (test 0.10 K/ L 0.04-0.36 jchy=737) BASOPHILS ABSOLUTE COUNT (BEAKER) (test 0.02 K/ L 0.01-0.08 cfdq=369) IMMATURE GRANULOCYTES-RELATIVE PERCENT (BEAKER) 0 % 0-1 (test ancz=2213) PROTHROMBIN [id number] 05:40:00 Test Item Value Reference Range Comments PROTIME (BEAKER) (test xgwz=968) 14.3 seconds 11.7-14.7 INR (BEAKER) (test uhms=177) 1.1 <=5.9 RECOMMENDED COUMADIN/WARFARIN INR THERAPY RANGESSTANDARD DOSE: 2.0 - 3.0 Includes: PROPHYLAXIS forvenous thrombosis, systemic embolization; TREATMENT for venous thrombosis and/or pulmonary embolus.HIGH RISK: Target INR is 2.5-3.5 for patients with mechanical heart valves.POCT-GLUCOSE [id number] 22:44:00 Test Item Value Reference Range Comments POC-GLUCOSE METER (BEAKER) 82 mg/dL 70-110 TESTED AT [facility] [address] [facility] [address] (test pqjh=0715) [facility] [address] RAPID DRUG SCREEN, [id number] 20:39:00 Test Item Value Reference Range Comments BARBITURATE URINE (BEAKER) (test moce=987) Negative Negative BENZODIAZEPINE SCREEN URINE (BEAKER) (test Negative Negative radj=982) COCAINE (METAB.) SCREEN (BEAKER) (test zoib=8063) Negative Negative METHADONE SCREEN (BEAKER) (test ktyv=9120) Negative Negative OPIATE SCREEN URINE (BEAKER) (test ckpg=122) Negative Negative CANNABINOID SCREEN URINE (BEAKER) (test vfkc=996) Negative Negative AMPH/METHAMPH SCREEN (BEAKER) (test olpk=2969) Negative Negative PHENCYCLIDINE SCREEN URINE (BEAKER) (test hjvg=806) Negative Negative OXYCODONE SCREEN URINE (BEAKER) (test pgae=5448) Negative Negative DRUG CUTOFF CONC.Cocaine 300 ng/mL Cannabinoid 50 ng/mL Benzodiazepine 200 ng/mLBarbiturate 200 ng/ mLPhencyclidine 25 ng/mLOpiate 300 ng/mLMethadone 300 ng/mLAmphetamine/ 1000 ng/mL MethamphetamineOxycodone 300 ng/mLThis assay provides an unconfirmed qualitative test result for the clinical management of patients in emergency situations. Chain of custody not maintained. Some irrn-osb-zcubbuc medications, as well as adulterants, may cause inaccurate results. Clinical correlation should be applied. A more comprehensive drug screen or confirmation of a detected drug may be performed upon request.URINALYSIS W/ [id number] 18:36:00 Test Item Value Reference Range Comments COLOR (BEAKER) (test egbv=681) Yellow CLARITY (BEAKER) (test tlij=614) Hazy SPECIFIC GRAVITY UA (BEAKER) (test ehzu=308) 1.016 1.001-1.035 PH UA (BEAKER) (test iaje=274) 6.5 5.0-8.0 PROTEIN UA (BEAKER) (test ueia=111) 20 mg/dL Negative GLUCOSE UA (BEAKER) (test wbqz=300) Negative Negative KETONES UA (BEAKER) (test wkpz=741) Trace Negative BILIRUBIN UA (BEAKER) (test trjq=335) Negative Negative BLOOD UA (BEAKER) (test ycvb=966) Large Negative NITRITE UA (BEAKER) (test kwob=946) Negative Negative LEUKOCYTE ESTERASE UA (BEAKER) (test ovfi=133) Negative Negative UROBILINOGEN UA (BEAKER) (test ybpb=268) 0.2 mg/dL 0.2-1.0 RBC UA (BEAKER) (test trgw=675) 102 /HPF WBC UA (BEAKER) (test aaik=206) 19 /HPF SQUAMOUS EPITHELIAL (BEAKER) (test tzfj=392) 6 /HPF SOURCE(BEAKER) (test hkbk=1283) Urine, Voided
--- NOTE | 2018-05-09 12:11 | RAD REPORT ---
EXAM DESCRIPTION: US - Transvaginal Study Probe - 05/09/2018 11:55 am CLINICAL HISTORY: ICD N92.5 heavy menses COMPARISON: none FINDINGS: The uterus measures 6 x 3 x 4 centimeters. A fibroid is not seen. The endometrial stripe m easures 4 mm The ovaries are normal in size and echotexture. No significant free fluid is seen. IMPRESSION: Unremarkable pelvic ultrasound
[2018-05-09 12:12] LABS: Urine Blood NEGATIVE (NEG); Urine Glucose NEGATIVE (NEG); Urine Protein NEGATIVE (NEG)
[2018-05-09 12:16] LABS: Absolute Lymphocytes (CBC) 1.5 K/uL (0.7-4.9); Absolute Monocytes 0.4 K/uL (0.1-1.3); Absolute Neutrophil 2.9 K/uL (1.8-8.0); Basophils % 0.3 % (0-1.3); Eosinophils % 2.5 % (0-4.4); Hematocrit 35.1 % (36.0-45.0); Lymphocytes % 30.4 % (15.3-44.8); MCH 30.2 pg (27.0-35.0); MCV 91.6 fL (80-100); Monocytes % 8.4 % (3.3-12.3); RBC Red Blood Cell Count 3.83 M/uL (3.86-4.86)
[2018-05-09 12:32] LABS: Potassium 3.7 mmol/L (3.5-5.1)
[2018-05-09] MEDS ORDERED: KETOROLAC 30 MG/ML INJ ONE (12:40)
--- NOTE | 2018-05-09 13:03 | RAD REPORT ---
EXAM DESCRIPTION: CT - Abdomen Pelvis W Contrast - 05/09/2018 12:51 pm CLINICAL HISTORY: Right lower quadrant pain for 2 days, history of ovarian cyst COMPARISON: Pelvic ultrasound same date TECHNIQUE: Biphasic, helical CT imaging of the abdomen and pelvis was performed following 100 ml non -ionic IV contrast. Oral contrast was given. All CT scans are performed using dose optimization technique as appropriate and may include automated exposure control or mA/KV adjustment according to patient size. FINDINGS: No suspicious findings in the lung bases. The liver, spleen, and pancreas show no suspicious findings. Gallbladder and biliary tree are also wi thout suspicious finding. Symmetric renal function is seen with no hydronephrosis or suspicious renal mass. No pyelonephritis o r acute renal parenchymal process. Partially filled urinary bladder shows no suspicious finding. Tuba l ligation clips are present. No dominant ovarian finding. Uterus is unremarkable. No dilated bowel loops or bowel wall thickening. Normal diameter air-filled appendix is identified. M oderate stool volume throughout the colon. No active GI process. No free air, free fluid or inflammat ory stranding. No hernia, mass or bulky lymphadenopathy. No adrenal abnormality. No suspicious bony findings. IMPRESSION: No appendicitis, ovarian cyst or other abnormality to explain right lower quadrant sympt oms. Patient has moderate stool volume throughout the colon. No active GI process seen. No pyelonephritis or acute finding. Gallbladder, biliary tree and pancreas unremarkable as well.
--- NOTE | 2018-05-09 13:10 | EDPHYS ---
Physician Documentation [facility] Name: Marianna Phillips Age: 37 yrs Sex: Female : 1980 Arrival Date: 05/09/2018 Time: 11:09 Bed 15 Private MD: None, None ED Physician Rick Salinas HPI: 05/09 11:29 This 37 yrs old Black Female presents to ER via Ambulatory with complaints of SIDE PAIN.jr8 11:29 Onset: The symptoms/episode began/occurred acutely, 2 day(s) ago. Associated signs and jr8 symptoms: The patient has no apparent associated signs or symptoms. Modifying factors: The patient symptoms are alleviated by nothing, the patient symptoms are aggravated by movement. The patient has experienced a previous episode. The patient has not recently seen a physician. history of ovarian cysts in past. Complains of right lower pelvic pain. Denies urinary complaints or vaginal pain, bleeding, or discharge. Denies n/v/d or fevers . 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 - Social history:: Smoking status: Patient/guardian denies using tobacco. - Ebola Screening: : Patient denies exposure to infectious person Patient denies travel to an Ebola-affected area in the 21 days before illness onset. ROS: 11:29 Eyes: Negative for injury, pain, redness, and discharge, ENT: Negative for injury, jr8 pain, and discharge, Neck: Negative for injury, pain, and swelling, Cardiovascular: Negative for chest pain, palpitations, and edema, Respiratory: Negative for shortness of breath, cough, wheezing, and pleuritic chest pain, Back: Negative for injury and pain, MS/Extremity: Negative for injury and deformity, Skin: Negative for injury, rash, and discoloration, Neuro: Negative for headache, weakness, numbness, tingling, and seizure. 11:29 Abdomen/GI: Positive for abdominal pain, Negative for nausea, vomiting, and diarrhea, abdominal cramps, abdominal distension, anorexia, dysphagia, hematemesis, black/tarry stool, rectal pain, rectal bleeding, bowel incontinence, flatulence. Exam: 11:29 Cardiovascular: Regular rate and rhythm with a normal S1 and S2. No gallops, murmurs, jr8 or rubs. Normal PMI, no JVD. No pulse deficits. Respiratory: Lungs have equal breath sounds bilaterally, clear to auscultation and percussion. No rales, rhonchi or wheezes noted. No increased work of breathing, no retractions or nasal flaring. Back: No spinal tenderness. No costovertebral tenderness. Full range of motion. Skin: Warm, dry with normal turgor. Normal color with no rashes, no lesions, and no evidence of cellulitis. MS/ Extremity: Pulses equal, no cyanosis. Neurovascular intact. Full, normal range of motion. Neuro: Awake and alert, GCS 15, oriented to person, place, time, and situation. Cranial nerves II-XII grossly intact. Motor strength 5/5 in all extremities. Sensory grossly intact. Cerebellar exam normal. Normal gait. 11:29 Abdomen/GI: Inspection: abdomen appears normal, Bowel sounds: active, Palpation: soft, in all quadrants, moderate abdominal tenderness, in the right lower pelvic region, mass, is not appreciated, rebound tenderness, is not appreciated, voluntary guarding, is not appreciated, involuntary guarding, is not appreciated, no appreciated organomegaly, Indicators: McBurney's point is not tender, Keyes's sign is negative, Rovsing's sign is negative, Liver: no appreciated palpable abnormalities, tenderness, is not appreciated. Vital Signs: 11:25 BP 106 / 63; Pulse 81; Resp 16; Temp 98.2(TE); Pulse Ox 100% on R/A; Weight 56.7 kg; ss Height 5 ft. 2 in. (157.48 cm); Pain 5/10; 13:00 BP 110 / 60; Pulse 80; Resp 17; Pulse Ox 100% on R/A; Pain 3/10; sg 11:25 Body Mass Index 22.86 (56.70 kg, 157.48 cm) MDM: 11:15 Patient medically screened. jr8 13:07 Data reviewed: vital signs, nurses notes, lab test result(s), radiologic studies, CT jr8 scan, ultrasound, and as a result, I will discharge patient. Data interpreted: Pulse oximetry: on room air is 100 %. Interpretation: normal. 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 Response to treatment: the patient's symptoms have mildly improved after treatment. ED course: Discussed with patient that the labs, US, and CT were all within normal limits. No acute findings. Stool noted throughout colon. Maybe mildly constipated. Would try stool softener for a couple of days. If pain is worse or has not gone away, will need to f/u with GI specialist. Patient is good with this and will follow instructions . 05/09 11:28 Order name: CBC with Diff; Complete Time: 12:19 05/09 11:28 Order name: Basic Metabolic Panel; Complete Time: 12:42 05/09 11:28 Order name: US Transvaginal Study (Probe); Complete Time: 12:19 05/09 11:38 Order name: Urine Dipstick--Ancillary (enter results); Complete Time: 12:19 05/09 11:38 Order name: Urine --Ancillary (enter results); Complete Time: 12:19 05/09 12:19 Order name: CT Abd/Pelvis - W/Contrast; Complete Time: 13:05 05/09 11:28 Order name: Urine Test (obtain specimen); Complete Time: 11:36 05/09 11:28 Order name: Urine Dipstick-Ancillary (obtain specimen); Complete Time: 11:36 Administered Medications: 12:47 Drug: TORadol 30 mg Route: IVP; Site: right antecubital; sg Disposition: 05/09/18 13:09 Discharged to Home. Impression: Right lower quadrant abdominal tenderness. - Condition is Stable. - Discharge Instructions: Abdominal Pain, Adult, Abdominal Pain, Women. - Medication Reconciliation Form, Thank You Letter, Antibiotic Education, Prescription Opioid Use form. - Work release form (05/09/18 13:34). sg - Follow up: Molly Maravilla MD; When: 1 week; Reason: Recheck today's complaints, Continuance of care, Re-evaluation by your physician. - Problem is new. - Symptoms have improved. Addendum: 05/11/2018 14:43 Co-signature as Attending Physician, Rick Salinas MD I agree with the assessment and w a plan of care. Signatures: Dispatcher [employer] EDChiki Davis RN RN Debo Chan RN RN ss Jerad Soria, PA PA jr8 Rick Salinas MD MD mo Corrections: (The following items were deleted from the chart) 05/09 13:29 13:09 05/09/2018 13:09 Discharged to Home. Impression: Right lower quadrant abdominal sg tenderness. Condition is Stable. Forms are Medication Reconciliation Form, Thank You Letter, Antibiotic Education, Prescription Opioid Use. Follow up: Molly Maravilla; When: 1 week; Reason: Recheck today's complaints, Continuance of care, Re-evaluation by your physician. Problem is new. Symptoms have improved. jr8
--- NOTE | 2018-05-09 13:10 | ER ---
Nurse's Notes [facility] Name: Marianna Phillips Age: 37 yrs Sex: Female : 1980 Arrival Date: 05/09/2018 Time: 11:09 Bed 15 Private MD: None, None Diagnosis: Right lower quadrant abdominal tenderness Presentation: 05/09 11:21 Presenting complaint: Patient states: RLQ pain that began 2 days ago. Pt reports a ss history of an ovarian cyst in on the same side and states that it feels the same. Denies fever, bleeding. Transition of care: patient was not received from another setting of care. Onset of symptoms was May 07, 2018. Risk Assessment: Do you want to hurt yourself or someone else? Patient reports no desire to harm self or others. Initial Sepsis Screen: Does the patient meet any 2 criteria? No. Patient's initial sepsis screen is negative. Does the patient have a suspected source of infection? No. Patient's initial sepsis screen is negative. Care prior to arrival: None. 11:21 Method Of Arrival: Ambulatory ss 11:21 Acuity: YUNIOR 3 ss Triage Assessment: 12:10 General: Appears in no apparent distress. uncomfortable, slender, well groomed, well sg developed, well nourished, Behavior is calm, cooperative, appropriate for age. 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 - Social history:: Smoking status: Patient/guardian denies using tobacco. - Ebola Screening: : Patient denies exposure to infectious person Patient denies travel to an Ebola-affected area in the 21 days before illness onset. Screenin:10 Abuse screen: Denies threats or abuse. Denies injuries from another. Nutritional sg screening: No deficits noted. Tuberculosis screening: No symptoms or risk factors identified. Never had TB. Fall Risk None identified. Assessment: 12:10 General: Appears in no apparent distress. uncomfortable, slender, well groomed, well sg developed, well nourished, Behavior is calm, cooperative, appropriate for age. Pain: Complains of pain in anterior aspect of right lateral abdomen and right lower quadrant Pain does not radiate. Quality of pain is described as aching, crampy. Neuro: Level of Consciousness is awake, alert, obeys commands, Oriented to person, place, time, situation, Moves all extremities. Full function Gait is steady, Speech is normal. Cardiovascular: Heart tones S1 S2 present Capillary refill is brisk in bilateral fingers Patient's skin is warm and dry. Chest pain is denied. Respiratory: Airway is patent Respiratory effort is even, unlabored, Respiratory pattern is regular, symmetrical, Breath sounds are clear. GI: No signs and/or symptoms were reported involving the gastrointestinal system. GI: Abdomen is flat, non-distended, Bowel sounds present X 4 quads. Reports lower abdominal pain, cramping. : No signs and/or symptoms were reported regarding the genitourinary system. EENT: No signs and/or symptoms were reported regarding the EENT system. Derm: Skin is intact, is healthy with good turgor, Skin is dry, Skin is normal, Skin temperature is warm. Musculoskeletal: No signs and/or symptoms reported regarding the musculoskeletal system. Vital Signs: 11:25 BP 106 / 63; Pulse 81; Resp 16; Temp 98.2(TE); Pulse Ox 100% on R/A; Weight 56.7 kg; ss Height 5 ft. 2 in. (157.48 cm); Pain 5/10; 13:00 BP 110 / 60; Pulse 80; Resp 17; Pulse Ox 100% on R/A; Pain 3/10; sg 11:25 Body Mass Index 22.86 (56.70 kg, 157.48 cm) ED Course: 11:09 Patient arrived in ED. as 11:10 None, None is Private Physician. as 11:15 Jerad Soria PA is PHCP. jr8 11:15 Rick Salinas MD is Attending Physician. jr8 11:23 Urine collected: clean catch specimen, clear. dh3 11:25 Triage completed. ss 11:25 Arm band placed on right wrist. ss 11:36 Chiki Hurst, RN is Primary Nurse. sg 11:41 Patient taken to ultrasound. via wheelchair. aa4 11:45 Inserted saline lock: 20 gauge in right antecubital area, using aseptic technique. dh3 11:50 US Transvaginal Study (Probe) In Process Unspecified. EDMS 12:00 Patient has correct armband on for positive identification. Bed in low position. Call sg light in reach. Pulse ox on. NIBP on. 12:01 Ultrasound completed. Patient tolerated well. Patient moved back from ultrasound. lc3 12:[address] mw3 12:48 CT completed. Patient tolerated procedure well. Patient moved to CT via wheelchair. Patient moved back from CT. 12:50 CT Abd/Pelvis - W/Contrast In Process Unspecified. EDMS 13:09 Molly Maravilla MD is Referral Physician. jr8 13:20 No provider procedures requiring assistance completed. IV discontinued, intact, sg bleeding controlled, No redness/swelling at site. Pressure dressing applied. Administered Medications: 12:47 Drug: TORadol 30 mg Route: IVP; Site: right antecubital; sg Outcome: 13:09 Discharge ordered by MD. jr8 13:20 Discharged to home ambulatory, with family. sg 13:20 Condition: good 13:20 Discharge instructions given to patient, Instructed on discharge instructions, follow up and referral plans. safety practices, Demonstrated understanding of instructions, follow-up care. 13:29 Patient left the ED. sg Signatures: Dispatcher [employer] EDMS Chiki Hurst, RN RN Vivian Chen Amelia as Frazier, Amanda 4 Debo Ventura RN RN ss Roszak, Josh, PA PA jr8 Nuria Abreu Deanna 3 Karly Sousa 3
== END 2018-05-09 13:29 | disposition home or self-care (01) ==
LOC: ER 10:57
DX: R10.813 Right lower quadrant abdominal tenderness (principal)
CPT/HCPCS: 36415; 74177; 76830; 80048; 81003; 81025; 85025; 96374; 99284; Q9967

== ENCOUNTER 2019-07-11 17:15 | Emergency (ER) | payer SELFPAY ==
--- OUTSIDE RECORDS SUMMARY | 2019-07-11 17:19 | XMS REPORT | Clinical Summary ---
:1980 Author Organization [facility] Address [address] [place] [address] Care Team Providers Name Role Phone Hyacinth Primary Care Provider Allergies No Known Allergies Medications No known medications Active Problems Problem Noted Date Conversion disorder 07/08/2017 Depression, unspecified depression type 07/08/2017 Acute ischemic stroke 07/04/2017 Family History Medical History Relation Name Comments Diabetes Mother Lupus Neg Hx Relation Name Status Comments Mother Social History Tobacco Use Types Packs/Day Years Used Date Never Smoker Sex Assigned at Date Recorded Not on file Job Start Date Occupation Industry Not on file Not on file Not on file Travel History Travel Start Travel End No recent travel history available. Last Filed Vital Signs Not on file Plan of Treatment Not on file Results Not on fileafter 07/10/2018 Advance Directives For more information, please contact:[facility] [place], [place] [phone] Code Status Date Activated Date Inactivated Comments Full Code 07/04/2017 2:46 PM 07/08/2017 11:23 PM This code status was determined by: Patient
--- OUTSIDE RECORDS SUMMARY | 2019-07-11 17:20 | XMS REPORT ---
:1980 Author Organization [facility] Address [address] [place] [address] Care Team Providers Name Role Phone JUANA MODI Unavailable Unavailable Problems This patient has no known problems. Allergies, Adverse Reactions, Alerts This patient has no known allergies or adverse reactions. Medications This patient has no known medications. Results Test Description Test Time Test Comments Text Results Atomic Results Result Comments BREAST ULTRASOUND BILATERAL 2019-03-06 11:11:26 - DIAG MAMM BILATERAL ALAN CAD DIGITALBILATERAL FIRST EVER DIGITAL DIAGNOSTIC MAMMOGRAM 3D/2D WITH CAD: 03/06/2019Digital breast tomosynthesis was performed in addition to routine CC and MLO views. Current mammographic images were evaluated by either a Nvidia M-Vu or a [employer] ImageChecker CAD (computer aided detection system). No prior exams were available for comparison. The tissue of both breasts is heterogeneously dense. This may lower the sensitivity of mammography. There are benign calcifications in the right breast. No suspicious mass, architectural distortion, malignant type calcification, or lymph node abnormality detected. INCOMPLETE ASSESSMENT: ADDITIONAL IMAGING EVALUATION RECOMMENDEDNo mammographic evidence of malignancy. Proceed to same day ultrasound. - BREAST ULTRASOUND BILATERALULTRASOUND OF BOTH BREASTS AND BOTH AXILLA: 03/06/2019No prior exams were available for comparison. Color flow, real-time, and Doppler ultrasound of both breasts and both axilla were performed. Srinivasan scale images of the real-time examination were reviewed. No abnormalities were seen sonographically in either breast or either axilla. IMPRESSION: BENIGN There is no sonographic evidence of malignancy. Begin screening mammography at age 40 per current ACR guidelines. Pierre Nicole M.D. et/:03/06/2019 11:11:26 Entry: - 03/07/2019 12:50:12Imaging Technologist: Nia GOMES, [facility]-FWletter sent: BIRADS 1-2 Combo FU Letter Mammogram BI-RADS: 0 Indeterminate Ultrasound BI-RADS: 2 Benign DIAG MAMM BILATERAL ALAN CAD 2019-03-06 11:11:26 - DIAG MAMM BILATERAL ALAN CAD DIGITAL DIGITALBILATERAL FIRST EVER DIGITAL DIAGNOSTIC MAMMOGRAM 3D/2D WITH CAD: 03/06/2019Digital breast tomosynthesis was performed in addition to routine CC and MLO views. Current mammographic images were evaluated by either a Nvidia M-Vu or a Night Zookeepercker CAD (computer aided detection system). No prior exams were available for comparison. The tissue of both breasts is heterogeneously dense. This may lower the sensitivity of mammography. There are benign calcifications in the right breast. No suspicious mass, architectural distortion, malignant type calcification, or lymph node abnormality detected. INCOMPLETE ASSESSMENT: ADDITIONAL IMAGING EVALUATION RECOMMENDEDNo mammographic evidence of malignancy. Proceed to same day ultrasound. - BREAST ULTRASOUND BILATERALULTRASOUND OF BOTH BREASTS AND BOTH AXILLA: 03/06/2019No prior exams were available for comparison. Color flow, real-time, and Doppler ultrasound of both breasts and both axilla were performed. Srinivasan scale images of the real-time examination were reviewed. No abnormalities were seen sonographically in either breast or either axilla. IMPRESSION: BENIGN There is no sonographic evidence of malignancy. Begin screening mammography at age 40 per current ACR guidelines. Pierre Nicole M.D. et/:03/06/2019 11:11:26 Entry: - 03/07/2019 12:50:12Imaging Technologist: Nia GOMES, [facility]-FWletter sent: BIRADS 1-2 Combo FU Letter Mammogram BI-RADS: 0 Indeterminate Ultrasound BI-RADS: 2 Benign DILUTE WARD VIPER VENOM (DRVV) 2017-07-10 14:40:00 Test Item Value Reference Range Comments PROTIME (BEAKER) (test xzhm=331) 14.5 seconds 11.7-14.7 INR (BEAKER) (test jztk=276) 1.1 <=5.9 PARTIAL THROMBOPLASTIN TIME (BEAKER) 28.6 seconds 22.5-36.0 (test uksq=877) DRVV INTERPRETATION (BEAKER) (test Negative screen for Lupus tpqg=4221) Anticoagulant DCKK-GQQIKSOEPBU-685 (BEAKER) (test Angel Joy, M.D. (electonic sjrt=3709) signature) DRVV SCREEN RATIO (BEAKER) (test 0.59 <1.20 rzap=2517) Effective 03/25/2014: Test Method ChangeDRVV Screen Ratio, DRVV 1/1 Screen Ratio, DRVV Confirm Ratio,DRVV Normalized Ratio Reference Range: <1.2Protime Reference Range ChangeNew: 11.7-14.7 Previous: 9.8-12.0PTT Reference Range ChangeNew: 22.5-36.0 Previous: 25.8-34.5HEXAGONAL [id number] 12:56: 00 Test Item Value Reference Range Comments HEXAGONAL PHOSPHOLIPID (BEAKER) (test syci=2450) Negative BASIC METABOLIC [id number] 05:51:00 Test Item Value Reference Range Comments SODIUM (BEAKER) (test 140 meq/L 136-145 cfdc=352) POTASSIUM (BEAKER) (test 4.1 meq/L 3.5-5.1 vbkb=902) CHLORIDE (BEAKER) (test 109 meq/L 98-107 cxqa=100) CO2 (BEAKER) (test 22 meq/L 22-29 xdsv=387) BLOOD UREA NITROGEN 8 mg/dL 7-21 (BEAKER) (test ujes=530) CREATININE (BEAKER) (test 1.02 mg/dL 0.57-1.25 ctup=346) GLUCOSE RANDOM (BEAKER) 86 mg/dL 70-105 (test nyre=899) CALCIUM (BEAKER) (test 10.2 mg/dL 8.4-10.2 ykon=553) EGFR (BEAKER) (test 74 mL/min/1.73 sq m ESTIMATED GFR IS NOT dsbb=7263) ACCURATE CREATININE CLEARANCE IN PREDICTING GLOMERULAR FILTRATION RATE. ESTIMATED GFR IS NOT APPLICABLE FOR DIALYSIS PATIENTS. CBC W/PLT COUNT & AUTO [id number] 05:29:00 Test Item Value Reference Range Comments WHITE BLOOD CELL COUNT (BEAKER) (test esvk=584) 5.5 K/ L 3.5-10.5 RED BLOOD CELL COUNT (BEAKER) (test phzc=429) 4.09 M/ L 3.93-5.22 HEMOGLOBIN (BEAKER) (test yqid=648) 12.5 GM/DL 11.2-15.7 HEMATOCRIT (BEAKER) (test tbvn=491) 36.6 % 34.1-44.9 MEAN CORPUSCULAR VOLUME (BEAKER) (test zwow=477) 89.5 fL 79.4-94.8 MEAN CORPUSCULAR HEMOGLOBIN (BEAKER) (test 30.6 pg 25.6-32.2 bxza=888) MEAN CORPUSCULAR HEMOGLOBIN CONC (BEAKER) (test 34.2 GM/DL 32.2-35.5 rbqj=569) RED CELL DISTRIBUTION WIDTH (BEAKER) (test 13.5 % 11.7-14.4 xdnc=502) PLATELET COUNT (BEAKER) (test zapn=301) 270 K/CU MM 150-450 MEAN PLATELET VOLUME (BEAKER) (test uore=053) 10.1 fL 9.4-12.3 NUCLEATED RED BLOOD CELLS (BEAKER) (test 0 /100 WBC 0-0 yyic=599) NEUTROPHILS RELATIVE PERCENT (BEAKER) (test 60 % twms=598) LYMPHOCYTES RELATIVE PERCENT (BEAKER) (test 30 % dnbi=421) MONOCYTES RELATIVE PERCENT (BEAKER) (test 8 % ipoi=892) EOSINOPHILS RELATIVE PERCENT (BEAKER) (test 2 % jfln=941) BASOPHILS RELATIVE PERCENT (BEAKER) (test 0 % nmpy=252) NEUTROPHILS ABSOLUTE COUNT (BEAKER) (test 3.29 K/ L 1.56-6.13 nhko=484) LYMPHOCYTES ABSOLUTE COUNT (BEAKER) (test 1.62 K/ L 1.18-3.74 qzxr=105) MONOCYTES ABSOLUTE COUNT (BEAKER) (test 0.42 K/ L 0.24-0.36 apaa=794) EOSINOPHILS ABSOLUTE COUNT (BEAKER) (test 0.11 K/ L 0.04-0.36 txnb=467) BASOPHILS ABSOLUTE COUNT (BEAKER) (test 0.01 K/ L 0.01-0.08 uqdl=459) IMMATURE GRANULOCYTES-RELATIVE PERCENT (BEAKER) 0 % 0-1 (test cmjc=3888) SEDIMENTATION [id number] 10:56:00 Test Item Value Reference Range Comments SEDIMENTATION RATE, ERYTHROCYTE (BEAKER) (test 21 mm/HR 0-20 zyul=077) CBC W/PLT COUNT & AUTO [id number] 09:30:00 Test Item Value Reference Range Comments WHITE BLOOD CELL COUNT (BEAKER) (test bdub=002) 5.2 K/ L 3.5-10.5 RED BLOOD CELL COUNT (BEAKER) (test jsfd=475) 3.86 M/ L 3.93-5.22 HEMOGLOBIN (BEAKER) (test flft=306) 11.5 GM/DL 11.2-15.7 HEMATOCRIT (BEAKER) (test jpyk=082) 34.4 % 34.1-44.9 MEAN CORPUSCULAR VOLUME (BEAKER) (test fatc=922) 89.1 fL 79.4-94.8 MEAN CORPUSCULAR HEMOGLOBIN (BEAKER) (test 29.8 pg 25.6-32.2 kxep=140) MEAN CORPUSCULAR HEMOGLOBIN CONC (BEAKER) (test 33.4 GM/DL 32.2-35.5 lvye=629) RED CELL DISTRIBUTION WIDTH (BEAKER) (test 13.6 % 11.7-14.4 msoj=656) PLATELET COUNT (BEAKER) (test xwex=419) 268 K/CU MM 150-450 MEAN PLATELET VOLUME (BEAKER) (test vkva=865) 9.9 fL 9.4-12.3 NUCLEATED RED BLOOD CELLS (BEAKER) (test 0 /100 WBC 0-0 thml=607) NEUTROPHILS RELATIVE PERCENT (BEAKER) (test 43 % afec=933) LYMPHOCYTES RELATIVE PERCENT (BEAKER) (test 45 % ntuf=713) MONOCYTES RELATIVE PERCENT (BEAKER) (test 9 % jgbq=031) EOSINOPHILS RELATIVE PERCENT (BEAKER) (test 3 % xmtc=976) BASOPHILS RELATIVE PERCENT (BEAKER) (test 0 % mjod=629) NEUTROPHILS ABSOLUTE COUNT (BEAKER) (test 2.23 K/ L 1.56-6.13 hguc=902) LYMPHOCYTES ABSOLUTE COUNT (BEAKER) (test 2.34 K/ L 1.18-3.74 rjaa=845) MONOCYTES ABSOLUTE COUNT (BEAKER) (test 0.45 K/ L 0.24-0.36 snui=382) EOSINOPHILS ABSOLUTE COUNT (BEAKER) (test 0.16 K/ L 0.04-0.36 iksc=555) BASOPHILS ABSOLUTE COUNT (BEAKER) (test 0.02 K/ L 0.01-0.08 ptnv=116) IMMATURE GRANULOCYTES-RELATIVE PERCENT (BEAKER) 0 % 0-1 (test jkwe=8642) (MANUAL DIFFERENTIAL)2017-07-06 09:30:00 Test Item Value Reference Range Comments TOTAL COUNTED (BEAKER) (test hyeg=1792) POCT-GLUCOSE [id number] 06:41:00 Test Item Value Reference Range Comments POC-GLUCOSE METER (BEAKER) 103 mg/dL 70-110 TESTED AT [address] (test tjpo=8534) [place] [address] BASIC METABOLIC [id number] 05:21:00 Test Item Value Reference Range Comments SODIUM (BEAKER) (test 140 meq/L 136-145 humu=996) POTASSIUM (BEAKER) (test 4.0 meq/L 3.5-5.1 rmgk=481) CHLORIDE (BEAKER) (test 108 meq/L 98-107 bnrk=914) CO2 (BEAKER) (test 23 meq/L 22-29 zddq=823) BLOOD UREA NITROGEN 6 mg/dL 7-21 (BEAKER) (test wtwc=069) CREATININE (BEAKER) (test 0.96 mg/dL 0.57-1.25 pyvz=686) GLUCOSE RANDOM (BEAKER) 92 mg/dL 70-105 (test hqbq=534) CALCIUM (BEAKER) (test 9.3 mg/dL 8.4-10.2 vost=334) EGFR (BEAKER) (test 79 mL/min/1.73 sq m ESTIMATED GFR IS NOT hssn=0345) ACCURATE CREATININE CLEARANCE IN PREDICTING GLOMERULAR FILTRATION RATE. ESTIMATED GFR IS NOT APPLICABLE FOR DIALYSIS PATIENTS. POCT-GLUCOSE [id number] 23:38:00 Test Item Value Reference Range Comments POC-GLUCOSE METER (BEAKER) 84 mg/dL 70-110 TESTED AT [address] (test fyjg=0958) [place] [address] POCT-GLUCOSE [id number] 16:02:00 Test Item Value Reference Range Comments POC-GLUCOSE METER (BEAKER) 80 mg/dL 70-110 TESTED AT [address] (test qssf=1963) [place] [address] ANTI-NUCLEAR ANTIBODY (MEI)2017-07-05 13:36:00 Test Item Value Reference Range Comments ANTI-NUCLEAR ANTIBODY (MIE) (BEAKER) (test Negative Negative fbss=322) CARDIOLIPIN ANTIBODIES, IGG AND [id number] 13:10:00 Test Item Value Reference Range Comments ANTICARDIOLIPIN IGG ANTIBODY (BEAKER) (test < GPL vxqn=089) ANTICARDIOLIPIN IGM ANTIBODY (BEAKER) (test 0.2 MPL diqe=029) Anticardiolipin IgG Result Interpretation:NEG: <20 GPL; U/mlPOS: >/=20 GPL; U/mlAnticardiolipin IgM Result Interpretation:NEG: <20 MPL; U/mlPOS: >/=20 MPL; U/mlPOCT-GLUCOSE [id number] 12:20:00 Test Item Value Reference Range Comments POC-GLUCOSE METER ([email or web address]) 76 mg/dL 70-110 TESTED AT [address] (test evok=9828) [place] [address] [id number] 11:07:00 Test Item Value Reference Range Comments RPR SCREEN ([email or web address]) (test pxpa=109) Nonreactive Nonreactive RHEUMATOID FACTOR AB, REFLEX TO [id number] 11:03:00 Test Item Value Reference Range Comments RHEUMATOID FACTOR (BEAKER) (test edto=663) Negative HEMOGLOBIN [id number] 08:35:00 Test Item Value Reference Range Comments HEMOGLOBIN A1C (BEAKER) (test 5.0 % 4.3-6.1 POSSIBLE HEMOGLOBIN S VARIANT osla=738) NOTED IN HEMOGLOBIN A1C CHROMATOGRAPH. SUGGEST HEMOGLOBIN ELECTROPHORESIS IF CLINICALLY INDICATED. FastingPOCT-GLUCOSE [id number] 08:15:00 Test Item Value Reference Range Comments POC-GLUCOSE METER ([email or web address]) 93 mg/dL 70-110 TESTED AT [address] (test rhsa=7816) [place] [id number] TSH/FREE T4 IF [id number] 06:26:00 Test Item Value Reference Range Comments THYROID STIMULATING HORMONE (BEAKER) (test 3.65 uIU/mL 0.35-4.94 ciuh=168) VITAMIN B12 AND [id number] 06:26:00 Test Item Value Reference Range Comments VITAMIN B12 (BEAKER) (test otuz=475) 726 pg/mL 213-816 FOLATE (BEAKER) (test nnip=245) 12.3 ng/mL >=7.0 Effective 10/07/2014: Folate Reference Range ChangeNew: >=7.0 Previous: & gt;=5.4LIPID [id number] 05:56:00 Test Item Value Reference Range Comments TRIGLYCERIDES (BEAKER) (test lhht=739) 65 mg/dL CHOLESTEROL (BEAKER) (test uxij=560) 140 mg/dL HDL CHOLESTEROL (BEAKER) (test zwze=880) 39 mg/dL LDL CHOLESTEROL CALCULATED (BEAKER) (test 88 mg/dL qupx=801) Triglyceride Reference Range: Low Risk <150 Borderline 150- 199 High Risk 200-499 Very High Risk >=500Cholesterol Reference Range: Low Risk <200 Borderline 200-239 High Risk > 240HDL Cholesterol Reference Range: Low Risk >=60 High Risk <40LDL Cholesterol Reference Range: Optimal <100 Near Optimal 100-129 Borderline 130-159 High 160-189 Very High >=190 FastingBASIC METABOLIC [id number] 05:56:00 Test Item Value Reference Range Comments SODIUM (BEAKER) (test 142 meq/L 136-145 hacn=299) POTASSIUM (BEAKER) (test 3.5 meq/L 3.5-5.1 bpfs=310) CHLORIDE (BEAKER) (test 113 meq/L 98-107 bzee=420) CO2 (BEAKER) (test 22 meq/L 22-29 uymi=554) BLOOD UREA NITROGEN 6 mg/dL 7-21 (BEAKER) (test hjja=749) CREATININE (BEAKER) (test 0.79 mg/dL 0.57-1.25 yprz=449) GLUCOSE RANDOM (BEAKER) 84 mg/dL 70-105 (test pjvz=617) CALCIUM (BEAKER) (test 8.2 mg/dL 8.4-10.2 vddl=984) EGFR (BEAKER) (test 99 mL/min/1.73 sq m ESTIMATED GFR IS NOT btiv=5962) ACCURATE CREATININE CLEARANCE IN PREDICTING GLOMERULAR FILTRATION RATE. ESTIMATED GFR IS NOT APPLICABLE FOR DIALYSIS PATIENTS. FastingHEPATIC FUNCTION [id number] 05:56:00 Test Item Value Reference Range Comments TOTAL PROTEIN (BEAKER) (test tegd=401) 6.1 gm/dL 6.0-8.3 ALBUMIN (BEAKER) (test ocbl=2747) 3.2 g/dL 3.5-5.0 BILIRUBIN TOTAL (BEAKER) (test ewyq=724) 0.5 mg/dL 0.2-1.2 BILIRUBIN DIRECT (BEAKER) (test avrh=076) 0.2 mg/dL 0.1-0.5 ALKALINE PHOSPHATASE (BEAKER) (test ffft=007) 54 U/L 40-150 AST (SGOT) (BEAKER) (test bfpk=036) 14 U/L 5-34 ALT (SGPT) (BEAKER) (test mfpq=024) 6 U/L 6-55 FastingCREATINE KINASE (CK), TOTAL AND [id number] 05:56:00 Test Item Value Reference Range Comments CREATINE KINASE TOTAL (BEAKER) (test dzwm=442) 100 U/L 29-200 CREATINE KINASE-MB (BEAKER) (test cfqg=098) 0.4 ng/mL 0.0-6.6 CREATINE KINASE-MB INDEX (BEAKER) (test bfbh=785) 0.4 % Effective 10/07/2014: CK-MB Reference Range ChangeNew: 0.0-6.6 Previous: 0.0- 4.9CK-MB Reference Range:<6.7 Normal6.7-10.0 Borderline>10.0 AbnormalFastingFastingTROPONIN [id number] 05:54:00 Test Item Value Reference Range Comments TROPONIN I (FIDELINAAKER) (test vwmi=277) 0.01 ng/mL 0.00-0.03 Effective 10/07/2014: Reference Range [...] persistent tachyarrhythmia.FastingCBC W/PLT COUNT &amp ; AUTO [id number] 05:44:00 Test Item Value Reference Range Comments WHITE BLOOD CELL COUNT (BEAKER) (test yjab=197) 4.9 K/ L 3.5-10.5 RED BLOOD CELL COUNT (BEAKER) (test yfli=612) 3.58 M/ L 3.93-5.22 HEMOGLOBIN (BEAKER) (test vfgd=690) 10.9 GM/DL 11.2-15.7 HEMATOCRIT (BEAKER) (test otiv=886) 32.7 % 34.1-44.9 MEAN CORPUSCULAR VOLUME (BEAKER) (test uzdo=817) 91.3 fL 79.4-94.8 MEAN CORPUSCULAR HEMOGLOBIN (BEAKER) (test 30.4 pg 25.6-32.2 njzn=071) MEAN CORPUSCULAR HEMOGLOBIN CONC (BEAKER) (test 33.3 GM/DL 32.2-35.5 ygtd=883) RED CELL DISTRIBUTION WIDTH (BEAKER) (test 13.6 % 11.7-14.4 gnql=573) PLATELET COUNT (BEAKER) (test cujt=203) 258 K/CU MM 150-450 MEAN PLATELET VOLUME (BEAKER) (test bmcm=432) 10.5 fL 9.4-12.3 NUCLEATED RED BLOOD CELLS (BEAKER) (test 0 /100 WBC 0-0 ozwr=907) NEUTROPHILS RELATIVE PERCENT (BEAKER) (test 52 % ehml=002) LYMPHOCYTES RELATIVE PERCENT (BEAKER) (test 36 % xcbu=052) MONOCYTES RELATIVE PERCENT (BEAKER) (test 10 % wkpv=374) EOSINOPHILS RELATIVE PERCENT (BEAKER) (test 2 % olim=960) BASOPHILS RELATIVE PERCENT (BEAKER) (test 0 % pqmc=645) NEUTROPHILS ABSOLUTE COUNT (BEAKER) (test 2.53 K/ L 1.56-6.13 eafb=544) LYMPHOCYTES ABSOLUTE COUNT (BEAKER) (test 1.74 K/ L 1.18-3.74 pqdf=767) MONOCYTES ABSOLUTE COUNT (BEAKER) (test 0.47 K/ L 0.24-0.36 srac=079) EOSINOPHILS ABSOLUTE COUNT (BEAKER) (test 0.10 K/ L 0.04-0.36 lvov=350) BASOPHILS ABSOLUTE COUNT (BEAKER) (test 0.02 K/ L 0.01-0.08 dzho=174) IMMATURE GRANULOCYTES-RELATIVE PERCENT (BEAKER) 0 % 0-1 (test xkbw=6051) PROTHROMBIN TIME/[id number] 05:40:00 Test Item Value Reference Range Comments PROTIME (BEAKER) (test gkth=284) 14.3 seconds 11.7-14.7 INR (BEAKER) (test rbai=835) 1.1 <=5.9 RECOMMENDED COUMADIN/WARFARIN INR THERAPY RANGESSTANDARD DOSE: 2.0 - 3.0 Includes: PROPHYLAXIS forvenous thrombosis, systemic embolization; TREATMENT for venous thrombosis and/or pulmonary embolus.HIGH RISK: Target INR is 2.5-3.5 for patients with mechanical heart valves.POCT-GLUCOSE [id number] 22:44:00 Test Item Value Reference Range Comments POC-GLUCOSE METER (BEAKER) 82 mg/dL 70-110 TESTED AT [facility] [address] [facility] (test wxpo=8811) [facility] [address] RAPID DRUG SCREEN, [id number] 20:39:00 Test Item Value Reference Range Comments BARBITURATE URINE (BEAKER) (test cyun=632) Negative Negative BENZODIAZEPINE SCREEN URINE (BEAKER) (test Negative Negative aiul=938) COCAINE (METAB.) SCREEN (BEAKER) (test bdvf=8784) Negative Negative METHADONE SCREEN (BEAKER) (test hddt=1004) Negative Negative OPIATE SCREEN URINE (BEAKER) (test kusk=825) Negative Negative CANNABINOID SCREEN URINE (BEAKER) (test hras=474) Negative Negative AMPH/METHAMPH SCREEN (BEAKER) (test ywjx=9861) Negative Negative PHENCYCLIDINE SCREEN URINE (BEAKER) (test jbax=143) Negative Negative OXYCODONE SCREEN URINE (BEAKER) (test qwiw=9230) Negative Negative DRUG CUTOFF CONC.Cocaine 300 ng/mL Cannabinoid 50 ng/mL Benzodiazepine 200 ng/mLBarbiturate 200 ng/ mLPhencyclidine 25 ng/mLOpiate 300 ng/mLMethadone 300 ng/mLAmphetamine/ 1000 ng/mL MethamphetamineOxycodone 300 ng/mLThis assay provides an unconfirmed qualitative test result for the clinical management of patients in emergency situations. Chain of custody not maintained. Some ikvt-skx-ywnhpgd medications, as well as adulterants, may cause inaccurate results. Clinical correlation should be applied. A more comprehensive drug screen or confirmation of a detected drug may be performed upon request.URINALYSIS W/ [id number] 18:36:00 Test Item Value Reference Range Comments COLOR (BEAKER) (test tkem=338) Yellow CLARITY (BEAKER) (test tykc=851) Hazy SPECIFIC GRAVITY UA (BEAKER) (test thol=656) 1.016 1.001-1.035 PH UA (BEAKER) (test qqpi=268) 6.5 5.0-8.0 PROTEIN UA (BEAKER) (test rlij=195) 20 mg/dL Negative GLUCOSE UA (BEAKER) (test jfnn=870) Negative Negative KETONES UA (BEAKER) (test jaki=515) Trace Negative BILIRUBIN UA (BEAKER) (test nkmm=305) Negative Negative BLOOD UA (BEAKER) (test mksh=741) Large Negative NITRITE UA (BEAKER) (test cwzf=018) Negative Negative LEUKOCYTE ESTERASE UA (BEAKER) (test ipzj=726) Negative Negative UROBILINOGEN UA (BEAKER) (test hrqj=395) 0.2 mg/dL 0.2-1.0 RBC UA (BEAKER) (test xuaj=481) 102 /HPF WBC UA (BEAKER) (test fahq=391) 19 /HPF SQUAMOUS EPITHELIAL (BEAKER) (test tlij=876) 6 /HPF SOURCE(BEAKER) (test hdif=1520) Urine, Voided
[2019-07-11 17:50] LABS: Urine Blood 3+ (NEG); Urine Glucose TRACE (NEG); Urine Protein 2+ (NEG); Urine Specific Gravity 1.015 (1.005-1.030)
[2019-07-11 18:45] LABS: Urine Bacteria >50 /HPF (<20); Urine Culture Reflex Order REFLEXED; Urine RBC >50 /HPF (NONE SEEN)
--- NOTE | 2019-07-11 18:57 | EDPHYS ---
Physician Documentation [facility] Name: Marianna Phillips Age: 39 yrs Sex: Female : 1980 Arrival Date: 07/11/2019 Time: 17:16 Bed 12 Private MD: ED Physician Paolo Reed HPI: 07/11 17:49 This 39 yrs old Black Female presents to ER via Ambulatory with complaints of Abdominal kb Pain, Pain With Urination. 17:49 The patient presents with urinary symptoms, dysuria. Onset: The symptoms/episode kb began/occurred 3 day(s) ago. Modifying factors: The symptoms are alleviated by nothing, the symptoms are aggravated by urinating. Associated signs and symptoms: Pertinent positives: dysuria. Severity of symptoms: At their worst the symptoms were moderate, in the emergency department the symptoms are unchanged. The patient has not experienced similar symptoms in the past. The patient has not recently seen a physician. Historical: - Allergies: 17:27 No Known Allergies; la1 - PMHx: 17:27 CVA; la1 - Immunization history:: Adult Immunizations up to date. - Social history:: Smoking status: Patient/guardian denies using tobacco. - Ebola Screening: : No symptoms or risks identified at this time. ROS: 17:48 Constitutional: Negative for fever, chills, and weight loss, Neck: Negative for injury, kb pain, and swelling, Cardiovascular: Negative for chest pain, palpitations, and edema, Respiratory: Negative for shortness of breath, cough, wheezing, and pleuritic chest pain, Back: Negative for injury and pain, MS/Extremity: Negative for injury and deformity, Skin: Negative for injury, rash, and discoloration, Neuro: Negative for headache, weakness, numbness, tingling, and seizure. 17:48 Abdomen/GI: Positive for abdominal pain. 17:48 : Positive for urinary symptoms, burning with urination. Exam: 17:48 Constitutional: This is a well developed, well nourished patient who is awake, alert, kb and in no acute distress. Head/Face: Normocephalic, atraumatic. ENT: Nares patent. No nasal discharge, no septal abnormalities noted. Tympanic membranes are normal and external auditory canals are clear. Oropharynx with no redness, swelling, or masses, exudates, or evidence of obstruction, uvula midline. Mucous membranes moist. Neck: Trachea midline, no thyromegaly or masses palpated, and no cervical lymphadenopathy. Supple, full range of motion without nuchal rigidity, or vertebral point tenderness. No Meningismus. Chest/axilla: Normal chest wall appearance and motion. Nontender with no deformity. No lesions are appreciated. Cardiovascular: Regular rate and rhythm with a normal S1 and S2. No gallops, murmurs, or rubs. Normal PMI, no JVD. No pulse deficits. Respiratory: Lungs have equal breath sounds bilaterally, clear to auscultation and percussion. No rales, rhonchi or wheezes noted. No increased work of breathing, no retractions or nasal flaring. Back: No spinal tenderness. No costovertebral tenderness. Full range of motion. Skin: Warm, dry with normal turgor. Normal color with no rashes, no lesions, and no evidence of cellulitis. MS/ Extremity: Pulses equal, no cyanosis. Neurovascular intact. Full, normal range of motion. Neuro: Awake and alert, GCS 15, oriented to person, place, time, and situation. Cranial nerves II-XII grossly intact. Motor strength 5/5 in all extremities. Sensory grossly intact. Cerebellar exam normal. Normal gait. 17:48 Abdomen/GI: Inspection: abdomen appears normal, Bowel sounds: normal, in all quadrants, Palpation: soft, in all quadrants, mild abdominal tenderness, in the suprapubic area. Vital Signs: 17:27 BP 120 / 80; Pulse 87; Resp 16; Temp 98.4; Pulse Ox 98% on R/A; Weight 60.78 kg; Height la1 5 ft. 2 in. (157.48 cm); 17:27 Body Mass Index 24.51 (60.78 kg, 157.48 cm) la1 MDM: 17:40 Patient medically screened. dianne 17:47 Data reviewed: vital signs, nurses notes. Data interpreted: Pulse oximetry: on room air kb is 98 %. Interpretation: normal. 18:44 Counseling: I had a detailed discussion with the patient and/or guardian regarding: the kb historical points, exam findings, and any diagnostic results supporting the discharge/admit diagnosis, lab results, the need for outpatient follow up, a family practitioner, to return to the emergency department if symptoms worsen or persist or if there are any questions or concerns that arise at home. 07/11 17:26 Order name: Urine Microscopic Only; Complete Time: 18:47 kb 07/11 17:43 Order name: Urine Dipstick--Ancillary (enter results); Complete Time: 17:57 kb 07/11 17:26 Order name: Urine Dipstick-Ancillary (obtain specimen); Complete Time: 17:44 kb 07/11 17:43 Order name: Urine --Ancillary (enter results); Complete Time: 17:57 kb 07/11 18:53 Order name: Urine Culture EDMS Administered Medications: No medications were administered Disposition: 07/12 07:14 Co-signature as Attending Physician, Paolo Reed MD I agree with the assessment and [facility] plan of care. Disposition: 07/11/19 18:48 Discharged to Home. Impression: Urinary tract infection, site not specified. - Condition is Stable. - Discharge Instructions: Urinary Tract Infection, Adult, [id number]. - Prescriptions for Pyridium 200 mg Oral Tablet - take 1 tablet by ORAL route every 8 hours for 3 days; 9 tablet. Macrobid 100 mg Oral Capsule - take 1 capsule by ORAL route every 12 hours for 10 days; 20 capsule. - Medication Reconciliation Form, Thank You Letter, Antibiotic Education, Prescription Opioid Use form. - Follow up: Emergency Department; When: As needed; Reason: Worsening of condition. Follow up: Private Physician; When: 2 - 3 days; Reason: Recheck today's complaints, Continuance of care, Re-evaluation by your physician. Signatures: Dispatcher [employer] EDFL Gayle Ayala, SCANNER SUPERVISOR-C SCANNER SUPERVISOR-Paolo Sawant MD MD cha Attema, Lee RN RN la1 Corrections: (The following items were deleted from the chart) 07/11 19:09 18:48 07/11/2019 18:48 Discharged to Home. Impression: Urinary tract infection, site la1 not specified. Condition is Stable. Forms are Medication Reconciliation Form, Thank You Letter, Antibiotic Education, Prescription Opioid Use. Follow up: Emergency Department; When: As needed; Reason: Worsening of condition. Follow up: Private Physician; When: 2 - 3 days; Reason: Recheck today's complaints, Continuance of care, Re-evaluation by your physician. kb
--- NOTE | 2019-07-11 18:57 | ER ---
Nurse's Notes [facility] Name: Marianna Phillips Age: 39 yrs Sex: Female : 1980 Arrival Date: 07/11/2019 Time: 17:16 Bed 12 Private MD: Diagnosis: Urinary tract infection, site not specified Presentation: 07/11 17:26 Presenting complaint: Patient states: two days of burning with urination and lower abd la1 pain. Transition of care: patient was not received from another setting of care. Onset of symptoms was July 11, 2019. Risk Assessment: Do you want to hurt yourself or someone else? Patient reports no desire to harm self or others. Initial Sepsis Screen: Does the patient meet any 2 criteria? No. Patient's initial sepsis screen is negative. Does the patient have a suspected source of infection? No. Patient's initial sepsis screen is negative. Care prior to arrival: None. 17:26 Method Of Arrival: Ambulatory la1 17:26 Acuity: YUNIOR 4 la1 Historical: - Allergies: 17:27 No Known Allergies; la1 - PMHx: 17:27 CVA; la1 - Immunization history:: Adult Immunizations up to date. - Social history:: Smoking status: Patient/guardian denies using tobacco. - Ebola Screening: : No symptoms or risks identified at this time. Screenin:46 Abuse screen: Denies threats or abuse. Nutritional screening: No deficits noted. la1 Tuberculosis screening: No symptoms or risk factors identified. Fall Risk None identified. Assessment: 17:45 General: Appears in no apparent distress. Behavior is calm, cooperative. Pain: la1 Complains of pain in suprapubic area. Neuro: Level of Consciousness is awake, alert, obeys commands, Oriented to person, place, time, situation. Cardiovascular: Capillary refill < 3 seconds Patient's skin is warm and dry. Respiratory: Airway is patent Respiratory effort is even, unlabored, Respiratory pattern is regular, symmetrical. GI: Abdomen is round non-distended, Bowel sounds present X 4 quads. Abd is soft and non tender X 4 quads. : Reports burning with urination. Vital Signs: 17:27 BP 120 / 80; Pulse 87; Resp 16; Temp 98.4; Pulse Ox 98% on R/A; Weight 60.78 kg; Height la1 5 ft. 2 in. (157.48 cm); 17:27 Body Mass Index 24.51 (60.78 kg, 157.48 cm) la1 ED Course: 17:16 Patient arrived in ED. as 17:25 Gayle Ayala FNP-C [facility] kb 17:25 Paolo Reed MD is Attending Physician. kb 17:26 Arm band placed on left wrist. la1 17:27 Triage completed. la1 17:45 Maged Hudson, RN is Primary Nurse. la1 17:46 Patient has correct armband on for positive identification. la1 19:09 No provider procedures requiring assistance completed. Patient did not have IV access la1 during this emergency room visit. Administered Medications: No medications were administered Outcome: 18:48 Discharge ordered by . kb 19:09 Discharged to home ambulatory. la1 19:09 Condition: stable 19:09 Discharge instructions given to patient, Instructed on discharge instructions, follow up and referral plans. medication usage, Demonstrated understanding of instructions, follow-up care, medications, Prescriptions given X 2. 19:09 Patient left the ED. la1 Addendum: 07/14/2019 07:36 Addendum: Culture Results: Positive urine culture. No further action required. Bacteria s s sensitive to prescribed antibiotic. Signatures: Gayle Ayala FNP-C FNP-Tash Greer Shelby, RN RN Maged Hudson RN RN la
== END 2019-07-11 19:09 | disposition home or self-care (01) ==
LOC: ER 17:15
DX: N39.0 Urinary tract infection, site not specified (principal)
CPT/HCPCS: 81003; 81015; 81025; 87077; 87086; 87088; 87186; 99282

== ENCOUNTER 2019-10-18 03:06 | Emergency (ER) | payer SELFPAY ==
--- OUTSIDE RECORDS SUMMARY | 2019-10-18 03:10 | XMS REPORT ---
:1980 Author Organization [facility] Address [address] [place] [address] Care Team Providers Name Role Phone JUANA [...] mammographic images were evaluated by either a [email or web address] M-Vu or a babberly ImageChecker CAD (computer aided detection system). No [...] - 03/07/2019 12:50:12Imaging Technologist: Nia GOMES, [facility]-FWletter sent: BIRADS 1-2 Combo FU Letter Mammogram BI-RADS: 0 Indeterminate Ultrasound BI-RADS: 2 Benign DIAG MAMM BILATERAL ALAN CAD 2019-03-06 11:11:26 - DIAG MAMM BILATERAL ALAN CAD DIGITAL DIGITALBILATERAL FIRST EVER DIGITAL DIAGNOSTIC MAMMOGRAM 3D/2D WITH CAD: 03/06/2019Digital breast tomosynthesis was performed in addition to routine CC and MLO views. Current mammographic images were evaluated by either a [email or web address] M-Vu or a babberly ImageChecker CAD (computer aided detection system). No [...] Entry: - 03/07/2019 12:50:12Imaging Technologist: Nia GOMES, [facility]-FWletter sent: BIRADS 1-2 Combo FU Letter Mammogram BI-RADS: 0 Indeterminate Ultrasound BI-RADS: 2 Benign DILUTE WARD [facility]ER [facility]OM (DRVV) 2017-07-10 14:40:00 Test Item Value Reference Range Comments PROTIME (BEAKER) (test iwpx=133) 14.5 seconds 11.7-14.7 INR (BEAKER) (test swxa=740) 1.1 <=5.9 PARTIAL THROMBOPLASTIN TIME (BEAKER) 28.6 seconds 22.5-36.0 (test hghq=311) DRVV INTERPRETATION (BEAKER) (test Negative screen for Lupus jgkx=7034) Anticoagulant FLBO-IHVNNTALMTY-335 (BEAKER) (test Angel Hamilton M.D. (electonic vfcg=7619) signature) DRVV SCREEN RATIO (BEAKER) (test 0.59 <1.20 eglp=1293) Effective 03/25/2014: Test Method ChangeDRVV Screen Ratio, DRVV 1/1 Screen Ratio, DRVV Confirm Ratio,DRVV Normalized Ratio Reference Range: <1.2Protime Reference Range ChangeNew: 11.7-14.7 Previous: 9.8-12.0PTT Reference Range ChangeNew: 22.5-36.0 Previous: 25.8-34.5HEXAGONAL [id number] 12:56: 00 Test Item Value Reference Range Comments HEXAGONAL PHOSPHOLIPID (BEAKER) (test dofr=2775) Negative BASIC METABOLIC [id number] 05:51:00 Test Item Value Reference Range Comments SODIUM (BEAKER) (test 140 meq/L 136-145 pspv=176) POTASSIUM (BEAKER) (test 4.1 meq/L 3.5-5.1 xqyf=880) CHLORIDE (BEAKER) (test 109 meq/L 98-107 bhbh=018) CO2 (BEAKER) (test 22 meq/L 22-29 nnao=095) BLOOD UREA NITROGEN 8 mg/dL 7-21 (BEAKER) (test tsct=989) CREATININE (BEAKER) (test 1.02 mg/dL 0.57-1.25 qumx=044) GLUCOSE RANDOM (BEAKER) 86 mg/dL 70-105 (test caok=316) CALCIUM (BEAKER) (test 10.2 mg/dL 8.4-10.2 gvqw=301) EGFR (BEAKER) (test 74 mL/min/1.73 sq m ESTIMATED GFR IS NOT xoco=8473) ACCURATE CREATININE CLEARANCE IN PREDICTING GLOMERULAR FILTRATION RATE. ESTIMATED GFR IS NOT APPLICABLE FOR DIALYSIS PATIENTS. CBC W/PLT COUNT & AUTO [id number] 05:29:00 Test Item Value Reference Range Comments WHITE BLOOD CELL COUNT (BEAKER) (test vszl=198) 5.5 K/ L 3.5-10.5 RED BLOOD CELL COUNT (BEAKER) (test joby=373) 4.09 M/ L 3.93-5.22 HEMOGLOBIN (BEAKER) (test azer=215) 12.5 GM/DL 11.2-15.7 HEMATOCRIT (BEAKER) (test jupz=144) 36.6 % 34.1-44.9 MEAN CORPUSCULAR VOLUME (BEAKER) (test prqx=316) 89.5 fL 79.4-94.8 MEAN CORPUSCULAR HEMOGLOBIN (BEAKER) (test 30.6 pg 25.6-32.2 fccn=880) MEAN CORPUSCULAR HEMOGLOBIN CONC (BEAKER) (test 34.2 GM/DL 32.2-35.5 fqwi=238) RED CELL DISTRIBUTION WIDTH (BEAKER) (test 13.5 % 11.7-14.4 jkft=777) PLATELET COUNT (BEAKER) (test mjne=003) 270 K/CU MM 150-450 MEAN PLATELET VOLUME (BEAKER) (test yjza=349) 10.1 fL 9.4-12.3 NUCLEATED RED BLOOD CELLS (BEAKER) (test 0 /100 WBC 0-0 gzmq=714) NEUTROPHILS RELATIVE PERCENT (BEAKER) (test 60 % jdpy=084) LYMPHOCYTES RELATIVE PERCENT (BEAKER) (test 30 % tqls=864) MONOCYTES RELATIVE PERCENT (BEAKER) (test 8 % vtxc=376) EOSINOPHILS RELATIVE PERCENT (BEAKER) (test 2 % lheo=608) BASOPHILS RELATIVE PERCENT (BEAKER) (test 0 % ghfg=014) NEUTROPHILS ABSOLUTE COUNT (BEAKER) (test 3.29 K/ L 1.56-6.13 gfnl=486) LYMPHOCYTES ABSOLUTE COUNT (BEAKER) (test 1.62 K/ L 1.18-3.74 tfcj=662) MONOCYTES ABSOLUTE COUNT (BEAKER) (test 0.42 K/ L 0.24-0.36 jmif=667) EOSINOPHILS ABSOLUTE COUNT (BEAKER) (test 0.11 K/ L 0.04-0.36 dzic=479) BASOPHILS ABSOLUTE COUNT (BEAKER) (test 0.01 K/ L 0.01-0.08 qvlp=015) IMMATURE GRANULOCYTES-RELATIVE PERCENT (BEAKER) 0 % 0-1 (test hdse=1582) SEDIMENTATION [id number] 10:56:00 Test Item Value Reference Range Comments SEDIMENTATION RATE, ERYTHROCYTE (BEAKER) (test 21 mm/HR 0-20 cmhq=135) CBC W/PLT COUNT & AUTO [id number] 09:30:00 Test Item Value Reference Range Comments WHITE BLOOD CELL COUNT (BEAKER) (test xvvf=032) 5.2 K/ L 3.5-10.5 RED BLOOD CELL COUNT (BEAKER) (test rbuh=035) 3.86 M/ L 3.93-5.22 HEMOGLOBIN (BEAKER) (test ttwl=072) 11.5 GM/DL 11.2-15.7 HEMATOCRIT (BEAKER) (test vdfh=017) 34.4 % 34.1-44.9 MEAN CORPUSCULAR VOLUME (BEAKER) (test kupr=821) 89.1 fL 79.4-94.8 MEAN CORPUSCULAR HEMOGLOBIN (BEAKER) (test 29.8 pg 25.6-32.2 gwtl=542) MEAN CORPUSCULAR HEMOGLOBIN CONC (BEAKER) (test 33.4 GM/DL 32.2-35.5 fbye=195) RED CELL DISTRIBUTION WIDTH (BEAKER) (test 13.6 % 11.7-14.4 dlqq=773) PLATELET COUNT (BEAKER) (test zeoi=298) 268 K/CU MM 150-450 MEAN PLATELET VOLUME (BEAKER) (test goxm=384) 9.9 fL 9.4-12.3 NUCLEATED RED BLOOD CELLS (BEAKER) (test 0 /100 WBC 0-0 gkza=736) NEUTROPHILS RELATIVE PERCENT (BEAKER) (test 43 % iqpz=202) LYMPHOCYTES RELATIVE PERCENT (BEAKER) (test 45 % mzgg=419) MONOCYTES RELATIVE PERCENT (BEAKER) (test 9 % iodd=646) EOSINOPHILS RELATIVE PERCENT (BEAKER) (test 3 % czcx=289) BASOPHILS RELATIVE PERCENT (BEAKER) (test 0 % blsj=262) NEUTROPHILS ABSOLUTE COUNT (BEAKER) (test 2.23 K/ L 1.56-6.13 yuxe=629) LYMPHOCYTES ABSOLUTE COUNT (BEAKER) (test 2.34 K/ L 1.18-3.74 yfez=840) MONOCYTES ABSOLUTE COUNT (BEAKER) (test 0.45 K/ L 0.24-0.36 uugu=371) EOSINOPHILS ABSOLUTE COUNT (BEAKER) (test 0.16 K/ L 0.04-0.36 dknt=887) BASOPHILS ABSOLUTE COUNT (BEAKER) (test 0.02 K/ L 0.01-0.08 stjs=793) IMMATURE GRANULOCYTES-RELATIVE PERCENT (BEAKER) 0 % 0-1 (test hbml=5815) (MANUAL DIFFERENTIAL)2017-07-06 09:30:00 Test Item Value Reference Range Comments TOTAL COUNTED (BEAKER) (test xgpe=0439) POCT-GLUCOSE [id number] 06:41:00 Test Item Value Reference Range Comments POC-GLUCOSE METER (BEAKER) 103 mg/dL 70-110 TESTED AT [address] (test nclw=5055) [place] [address] BASIC METABOLIC [id number] 05:21:00 Test Item Value Reference Range Comments SODIUM (BEAKER) (test 140 meq/L 136-145 pfab=450) POTASSIUM (BEAKER) (test 4.0 meq/L 3.5-5.1 xvij=651) CHLORIDE (BEAKER) (test 108 meq/L 98-107 jqpk=079) CO2 (BEAKER) (test 23 meq/L 22-29 kzql=267) BLOOD UREA NITROGEN 6 mg/dL 7-21 (BEAKER) (test ezzp=409) CREATININE (BEAKER) (test 0.96 mg/dL 0.57-1.25 bmgo=170) GLUCOSE RANDOM (BEAKER) 92 mg/dL 70-105 (test kofh=371) CALCIUM (BEAKER) (test 9.3 mg/dL 8.4-10.2 obxd=318) EGFR (BEAKER) (test 79 mL/min/1.73 sq m ESTIMATED GFR IS NOT pcxp=2789) ACCURATE CREATININE CLEARANCE IN PREDICTING GLOMERULAR FILTRATION RATE. ESTIMATED GFR IS NOT APPLICABLE FOR DIALYSIS PATIENTS. POCT-GLUCOSE [id number] 23:38:00 Test Item Value Reference Range Comments POC-GLUCOSE METER (BEAKER) 84 mg/dL 70-110 TESTED AT [address] (test jgnz=9762) [place] [address] POCT-GLUCOSE [id number] 16:02:00 Test Item Value Reference Range Comments POC-GLUCOSE METER (BEAKER) 80 mg/dL 70-110 TESTED AT [address] (test cfvb=5834) [place] [address] ANTI-NUCLEAR ANTIBODY (MEI)2017-07-05 13:36:00 Test Item Value Reference Range Comments ANTI-NUCLEAR ANTIBODY (MEI) (BEAKER) (test Negative Negative pfgq=432) CARDIOLIPIN ANTIBODIES, IGG AND [id number] 13:10:00 Test Item Value Reference Range Comments ANTICARDIOLIPIN IGG ANTIBODY (BEAKER) (test < GPL xuif=206) ANTICARDIOLIPIN IGM ANTIBODY (BEAKER) (test 0.2 MPL xwdd=933) Anticardiolipin IgG Result Interpretation:NEG: <20 GPL; U/mlPOS: >/=20 GPL; U/mlAnticardiolipin IgM Result Interpretation:NEG: <20 MPL; U/mlPOS: >/=20 MPL; U/mlPOCT-GLUCOSE [id number] 12:20:00 Test Item Value Reference Range Comments POC-GLUCOSE METER ([facility]) 76 mg/dL 70-110 TESTED AT [address] (test ypnt=7558) [place] [address] [id number] 11:07:00 Test Item Value Reference Range Comments RPR SCREEN ([facility]) (test agnp=458) Nonreactive Nonreactive RHEUMATOID FACTOR AB, REFLEX TO [id number] 11:03:00 Test Item Value Reference Range Comments RHEUMATOID FACTOR (BEAKER) (test jksx=317) Negative HEMOGLOBIN [id number] 08:35:00 Test Item Value Reference Range Comments HEMOGLOBIN A1C (BEAKER) (test 5.0 % 4.3-6.1 POSSIBLE HEMOGLOBIN S VARIANT ajel=615) NOTED IN HEMOGLOBIN A1C CHROMATOGRAPH. SUGGEST HEMOGLOBIN ELECTROPHORESIS IF CLINICALLY INDICATED. FastingPOCT-GLUCOSE [id number] 08:15:00 Test Item Value Reference Range Comments POC-GLUCOSE METER ([facility]) 93 mg/dL 70-110 TESTED AT [address] (test vymb=0567) [place] [id number] TSH/FREE T4 IF [id number] 06:26:00 Test Item Value Reference Range Comments THYROID STIMULATING HORMONE (BEAKER) (test 3.65 uIU/mL 0.35-4.94 jcxr=541) VITAMIN B12 AND [id number] 06:26:00 Test Item Value Reference Range Comments VITAMIN B12 (BEAKER) (test rpvo=799) 726 pg/mL 213-816 FOLATE (BEAKER) (test hqyd=921) 12.3 ng/mL >=7.0 Effective 10/07/2014: Folate Reference Range ChangeNew: >=7.0 Previous: & gt;=5.4LIPID [id number] 05:56:00 Test Item Value Reference Range Comments TRIGLYCERIDES (BEAKER) (test abuu=909) 65 mg/dL CHOLESTEROL (BEAKER) (test twyv=949) 140 mg/dL HDL CHOLESTEROL (BEAKER) (test rszb=760) 39 mg/dL LDL CHOLESTEROL CALCULATED (BEAKER) (test 88 mg/dL rsot=052) Triglyceride Reference Range: Low Risk <150 Borderline 150- 199 High Risk 200-499 Very High Risk >=500Cholesterol Reference Range: Low Risk <200 Borderline 200-239 High Risk > 240HDL Cholesterol Reference Range: Low Risk >=60 High Risk <40LDL Cholesterol Reference Range: Optimal <100 Near Optimal 100-129 Borderline 130-159 High 160-189 Very High >=190 FastingBASIC METABOLIC [id number] 05:56:00 Test Item Value Reference Range Comments SODIUM (BEAKER) (test 142 meq/L 136-145 qvpv=016) POTASSIUM (BEAKER) (test 3.5 meq/L 3.5-5.1 qzwz=005) CHLORIDE (BEAKER) (test 113 meq/L 98-107 waao=729) CO2 (BEAKER) (test 22 meq/L 22-29 krob=706) BLOOD UREA NITROGEN 6 mg/dL 7-21 (BEAKER) (test ifwi=196) CREATININE (BEAKER) (test 0.79 mg/dL 0.57-1.25 gjch=763) GLUCOSE RANDOM (BEAKER) 84 mg/dL 70-105 (test cjni=575) CALCIUM (BEAKER) (test 8.2 mg/dL 8.4-10.2 emjo=172) EGFR (BEAKER) (test 99 mL/min/1.73 sq m ESTIMATED GFR IS NOT gnwh=2619) ACCURATE CREATININE CLEARANCE IN PREDICTING GLOMERULAR FILTRATION RATE. ESTIMATED GFR IS NOT APPLICABLE FOR DIALYSIS PATIENTS. FastingHEPATIC FUNCTION [id number] 05:56:00 Test Item Value Reference Range Comments TOTAL PROTEIN (BEAKER) (test nxly=279) 6.1 gm/dL 6.0-8.3 ALBUMIN (BEAKER) (test xtrp=5643) 3.2 g/dL 3.5-5.0 BILIRUBIN TOTAL (BEAKER) (test zzjk=567) 0.5 mg/dL 0.2-1.2 BILIRUBIN DIRECT (BEAKER) (test xlwt=157) 0.2 mg/dL 0.1-0.5 ALKALINE PHOSPHATASE (BEAKER) (test njcr=060) 54 U/L 40-150 AST (SGOT) (BEAKER) (test fogp=725) 14 U/L 5-34 ALT (SGPT) (BEAKER) (test jhhs=711) 6 U/L 6-55 FastingCREATINE KINASE (CK), TOTAL AND [id number] 05:56:00 Test Item Value Reference Range Comments CREATINE KINASE TOTAL (BEAKER) (test rcgu=901) 100 U/L 29-200 CREATINE KINASE-MB (BEAKER) (test cmhi=868) 0.4 ng/mL 0.0-6.6 CREATINE KINASE-MB INDEX (BEAKER) (test ibts=522) 0.4 % Effective 10/07/2014: CK-MB Reference Range ChangeNew: 0.0-6.6 Previous: 0.0- 4.9CK-MB Reference Range:<6.7 Normal6.7-10.0 Borderline>10.0 AbnormalFastingFastingTROPONIN [id number] 05:54:00 Test Item Value Reference Range Comments TROPONIN I (BEAKER) (test afwj=847) 0.01 ng/mL 0.00-0.03 Effective 10/07/2014: Reference Range [...] persistent tachyarrhythmia.FastingCBC W/PLT COUNT &amp ; AUTO [id number] 05:44:00 Test Item Value Reference Range Comments WHITE BLOOD CELL COUNT (BEAKER) (test ciwv=008) 4.9 K/ L 3.5-10.5 RED BLOOD CELL COUNT (BEAKER) (test rumn=643) 3.58 M/ L 3.93-5.22 HEMOGLOBIN (BEAKER) (test pwtx=682) 10.9 GM/DL 11.2-15.7 HEMATOCRIT (BEAKER) (test abbz=785) 32.7 % 34.1-44.9 MEAN CORPUSCULAR VOLUME (BEAKER) (test dgfu=309) 91.3 fL 79.4-94.8 MEAN CORPUSCULAR HEMOGLOBIN (BEAKER) (test 30.4 pg 25.6-32.2 holo=403) MEAN CORPUSCULAR HEMOGLOBIN CONC (BEAKER) (test 33.3 GM/DL 32.2-35.5 aqch=200) RED CELL DISTRIBUTION WIDTH (BEAKER) (test 13.6 % 11.7-14.4 yqzj=496) PLATELET COUNT (BEAKER) (test opbt=894) 258 K/CU MM 150-450 MEAN PLATELET VOLUME (BEAKER) (test ulhu=883) 10.5 fL 9.4-12.3 NUCLEATED RED BLOOD CELLS (BEAKER) (test 0 /100 WBC 0-0 znbe=080) NEUTROPHILS RELATIVE PERCENT (BEAKER) (test 52 % ngnk=426) LYMPHOCYTES RELATIVE PERCENT (BEAKER) (test 36 % bkrt=083) MONOCYTES RELATIVE PERCENT (BEAKER) (test 10 % tbmw=313) EOSINOPHILS RELATIVE PERCENT (BEAKER) (test 2 % ubaa=002) BASOPHILS RELATIVE PERCENT (BEAKER) (test 0 % bcim=493) NEUTROPHILS ABSOLUTE COUNT (BEAKER) (test 2.53 K/ L 1.56-6.13 gfnw=318) LYMPHOCYTES ABSOLUTE COUNT (BEAKER) (test 1.74 K/ L 1.18-3.74 qlhv=836) MONOCYTES ABSOLUTE COUNT (BEAKER) (test 0.47 K/ L 0.24-0.36 ljnv=979) EOSINOPHILS ABSOLUTE COUNT (BEAKER) (test 0.10 K/ L 0.04-0.36 mace=752) BASOPHILS ABSOLUTE COUNT (BEAKER) (test 0.02 K/ L 0.01-0.08 kpba=929) IMMATURE GRANULOCYTES-RELATIVE PERCENT (BEAKER) 0 % 0-1 (test pcfc=5881) PROTHROMBIN TIME/[id number] 05:40:00 Test Item Value Reference Range Comments PROTIME (BEAKER) (test exqy=514) 14.3 seconds 11.7-14.7 INR (BEAKER) (test wnbg=835) 1.1 <=5.9 RECOMMENDED COUMADIN/WARFARIN INR THERAPY RANGESSTANDARD DOSE: 2.0 - 3.0 Includes: PROPHYLAXIS forvenous thrombosis, systemic embolization; TREATMENT for venous thrombosis and/or pulmonary embolus.HIGH RISK: Target INR is 2.5-3.5 for patients with mechanical heart valves.POCT-GLUCOSE [id number] 22:44:00 Test Item Value Reference Range Comments POC-GLUCOSE METER (BEAKER) 82 mg/dL 70-110 TESTED AT [facility] [address] [place] [address] (test mqqs=0203) [facility] [address] RAPID DRUG SCREEN, [id number] 20:39:00 Test Item Value Reference Range Comments BARBITURATE URINE (BEAKER) (test kbty=782) Negative Negative BENZODIAZEPINE SCREEN URINE (BEAKER) (test Negative Negative bvus=463) COCAINE (METAB.) SCREEN (BEAKER) (test ujbv=3158) Negative Negative METHADONE SCREEN (BEAKER) (test xgaf=5703) Negative Negative OPIATE SCREEN URINE (BEAKER) (test hzfx=191) Negative Negative CANNABINOID SCREEN URINE (BEAKER) (test poxr=094) Negative Negative AMPH/METHAMPH SCREEN (BEAKER) (test spuy=2269) Negative Negative PHENCYCLIDINE SCREEN URINE (BEAKER) (test pspj=993) Negative Negative OXYCODONE SCREEN URINE (BEAKER) (test cnip=2548) Negative Negative DRUG CUTOFF CONC.Cocaine 300 ng/mL Cannabinoid 50 ng/mL Benzodiazepine 200 ng/mLBarbiturate 200 ng/ mLPhencyclidine 25 ng/mLOpiate 300 ng/mLMethadone 300 ng/mLAmphetamine/ 1000 ng/mL MethamphetamineOxycodone 300 ng/mLThis assay provides an unconfirmed qualitative test result for the clinical management of patients in emergency situations. Chain of custody not maintained. Some xlyp-ogw-mngvluj medications, as well as adulterants, may cause inaccurate results. Clinical correlation should be applied. A more comprehensive drug screen or confirmation of a detected drug may be performed upon request.URINALYSIS W/ [id number] 18:36:00 Test Item Value Reference Range Comments COLOR (BEAKER) (test oeni=896) Yellow CLARITY (BEAKER) (test myay=708) Hazy SPECIFIC GRAVITY UA (BEAKER) (test jtuv=560) 1.016 1.001-1.035 PH UA (BEAKER) (test vczu=128) 6.5 5.0-8.0 PROTEIN UA (BEAKER) (test mhpp=325) 20 mg/dL Negative GLUCOSE UA (BEAKER) (test bkek=641) Negative Negative KETONES UA (BEAKER) (test dqpu=033) Trace Negative BILIRUBIN UA (BEAKER) (test hkjq=013) Negative Negative BLOOD UA (BEAKER) (test muoy=289) Large Negative NITRITE UA (BEAKER) (test ucpw=501) Negative Negative LEUKOCYTE ESTERASE UA (BEAKER) (test txkf=379) Negative Negative UROBILINOGEN UA (BEAKER) (test tebu=839) 0.2 mg/dL 0.2-1.0 RBC UA (BEAKER) (test njqx=014) 102 /HPF WBC UA (BEAKER) (test pnfy=976) 19 /HPF SQUAMOUS EPITHELIAL (BEAKER) (test ljmo=608) 6 /HPF SOURCE(BEAKER) (test zqka=9797) Urine, Voided
[2019-10-18 03:53] LABS: Urine Bacteria LOADED /HPF (<20); Urine Culture Reflex Order REFLEXED; Urine RBC <5 /HPF (NONE SEEN)
[2019-10-18 03:55] LABS: Urine Blood 3+ (NEG); Urine Glucose NEGATIVE (NEG); Urine Protein 2+ (NEG)
[2019-10-18] MEDS ORDERED: ONDANSETRON 4 MG/2 ML VIAL ONE (04:46)
[2019-10-18] MEDS ORDERED: NA CHLORIDE 0.9% 1,000 ML ONE (04:46)
[2019-10-18] MEDS ORDERED: MORPHINE 2 MG/ML SYR ONE ×2 (04:46→06:17)
[2019-10-18 04:50] LABS: Absolute Lymphocytes (CBC) 1.3 K/uL (0.7-4.9); Basophils % 0.3 % (0-1.3); Hematocrit 36.5 % (36.0-45.0); Lymphocytes % 21.6 % (15.3-44.8); MPV 8.3 fL (7.6-11.3); RBC Red Blood Cell Count 4.01 M/uL (3.86-4.86)
[2019-10-18 05:08] LABS: Albumin 3.7 g/dL (3.4-5.0); Bilirubin Direct 0.1 mg/dL (0-0.2); Bilirubin Total 0.4 mg/dL (0.2-1.0); Protein, Total 7.8 g/dL (6.4-8.2)
--- NOTE | 2019-10-18 06:49 | EDPHYS ---
Physician Documentation [facility] Name: Marianna Phillips Age: 39 yrs Sex: Female : 1980 Arrival Date: 10/18/2019 Time: 03:09 Bed 15 Private MD: ED Physician Franck Tadeo HPI: 10/18 04:37 This 39 yrs old Black Female presents to ER via Ambulatory with complaints of Abdominal pkl Pain - Lower. 04:37 The patient presents with urinary symptoms, dysuria, frequency, urgency. Onset: The pkl symptoms/episode began/occurred just prior to arrival, 3 hour(s) ago. Associated signs and symptoms: The patient has no apparent associated signs or symptoms. MOP MAN: 03:30 LMP was middle of August 2019 cc3 Historical: - Allergies: 03:30 No Known Allergies; cc3 - PMHx: 03:30 CVA; Panic Attacks; cc3 - PSHx: 03:30 None; cc3 - Immunization history:: Adult Immunizations up to date. - Social history:: Smoking status: Patient/guardian denies using tobacco, never smoked. - Ebola Screening: : No symptoms or risks identified at this time. ROS: 04:37 Positive for urinary symptoms, urinary frequency, difficulty urinating. pkl 04:37 Eyes: Negative for injury, pain, redness, and discharge, ENT: Negative for injury, pain, and discharge, Neck: Negative for injury, pain, and swelling, Cardiovascular: Negative for chest pain, palpitations, and edema, Respiratory: Negative for shortness of breath, cough, wheezing, and pleuritic chest pain. 04:37 Abdomen/GI: Positive for abdominal pain, of the right lower quadrant and left lower quadrant. 04:37 Back: Negative for acute changes. 04:37 : Positive for urinary frequency, difficulty urinating. 04:37 MS/extremity: Negative for acute changes. 04:37 Skin: Negative for rash. 04:37 Neuro: Negative for altered mental status. Exam: 04:37 Head/Face: Normocephalic, atraumatic. Eyes: Pupils equal round and reactive to light, pkl extra-ocular motions intact. Lids and lashes normal. Conjunctiva and sclera are non-icteric and not injected. Cornea within normal limits. Periorbital areas with no swelling, redness, or edema. ENT: Nares patent. No nasal discharge, no septal abnormalities noted. Tympanic membranes are normal and external auditory canals are clear. Oropharynx with no redness, swelling, or masses, exudates, or evidence of obstruction, uvula midline. Mucous membranes moist. Neck: Trachea midline, no thyromegaly or masses palpated, and no cervical lymphadenopathy. Supple, full range of motion without nuchal rigidity, or vertebral point tenderness. No Meningismus. Chest/axilla: Normal chest wall appearance and motion. Nontender with no deformity. No lesions are appreciated. Cardiovascular: Regular rate and rhythm with a normal S1 and S2. No gallops, murmurs, or rubs. Normal PMI, no JVD. No pulse deficits. Respiratory: Lungs have equal breath sounds bilaterally, clear to auscultation and percussion. No rales, rhonchi or wheezes noted. No increased work of breathing, no retractions or nasal flaring. 04:37 Abdomen/GI: Bowel sounds: normal, Palpation: soft, mild abdominal tenderness, in the right lower quadrant and left lower quadrant. 04:37 Back: Exam negative for acute changes. 04:37 Musculoskeletal/extremity: Exam is negative for acute changes. 04:37 Skin: Exam negative for rash. 04:40 Neuro: Orientation: is normal, Mentation: is normal, Cranial nerves: grossly normal, pkl Motor: is normal. Vital Signs: 03:30 BP 119 / 83; Pulse 82; Resp 17 S; Temp 98(O); Pulse Ox 100% on R/A; Weight 58.06 kg cc3 (R); Height 5 ft. 2 in. (157.48 cm) (R); Pain 10/10; 04:40 BP 109 / 67; Pulse 72; Resp 17 S; Pulse Ox 100% on R/A; cc3 05:10 BP 121 / 84; Pulse 69; Resp 18 S; Pulse Ox 100% on R/A; cc3 07:00 BP 123 / 87; Pulse 70; Resp 16 S; Pulse Ox 100% on R/A; Pain 0/10; cc3 03:30 Body Mass Index 23.41 (58.06 kg, 157.48 cm) cc3 MDM: 03:16 Patient medically screened. pkl 06:47 Data reviewed: vital signs, nurses notes, lab test result(s), radiologic studies, CT pkl scan. 10/18 03:35 Order name: Urine Microscopic Only 4 10/18 03:37 Order name: Urine Dipstick--Ancillary (enter results) [facility] 10/18 03:53 Order name: Urine Microscopic Only; Complete Time: 04:57 EDMS 10/18 03:55 Order name: Urine Dipstick-Ancillary; Complete Time: 04:57 EDMS 10/18 04:21 Order name: Urine Culture [facility] 10/18 04:24 Order name: Basic Metabolic Panel [facility] 10/18 04:24 Order name: CBC with Diff [facility] 10/18 04:24 Order name: Creatinine for Radiology [facility] 10/18 04:24 Order name: Hepatic Function [facility] 10/18 04:24 Order name: Lipase [facility] 10/18 04:33 Order name: Urine Culture [facility] 10/18 04:53 Order name: CBC with Automated Diff; Complete Time: 04:57 EDMS 10/18 05:04 Order name: Creatinine (Radiology Only); Complete Time: 05:54 EDMS 10/18 05:09 Order name: Basic Metabolic Panel; Complete Time: 05:54 EDMS 10/18 04:24 Order name: IV Saline Lock; Complete Time: 04:36 [facility] 10/18 04:24 Order name: Labs collected and sent; Complete Time: 04:36 [facility] 10/18 04:25 Order name: CT Abd/Pelvis - IV Contrast Only [facility] 10/18 05:09 Order name: Liver (Hepatic) Function; Complete Time: 05:54 EDMS 10/18 05:09 Order name: Lipase; Complete Time: 05:54 EDMS Administered Medications: 04:45 Drug: NS 0.9% 1000 ml Route: IV; Rate: 1000 ml; Site: right antecubital; cc3 04:45 Drug: morphine 2 mg {Note: RASS 0.} Route: IVP; Site: right antecubital; cc3 06:00 Follow up: Response: No adverse reaction; Pain is unchanged, physician notified cc3 04:50 Drug: Zofran 4 mg Route: IVP; Site: right antecubital; cc3 05:50 Follow up: Response: No adverse reaction; Nausea is decreased cc3 06:15 Drug: morphine 2 mg {Note: RASS 0.} Route: IVP; Site: left antecubital; cc3 07:00 Follow up: Response: No adverse reaction; Pain is decreased; RASS: Alert and Calm (0) cc3 06:50 Drug: Cipro 500 mg Route: PO; cc3 07:00 Follow up: Response: No adverse reaction cc3 Disposition: 10/18/19 06:48 Discharged to Home. Impression: Cystitis. - Condition is Stable. - Prescriptions for Ultram 50 mg Oral Tablet - take 1 tablet by ORAL route every 8 hours As needed; 12 tablet. Cipro 500 mg Oral Tablet - take 1 tablet by ORAL route every 12 hours for 7 days; 14 tablet. - Medication Reconciliation Form, Thank You Letter, Antibiotic Education, Prescription Opioid Use form. - Follow up: Private Physician; When: 2 - 3 days; Reason: Re-evaluation by your physician. - Problem is new. - Symptoms have improved. Signatures: Dispatcher [employer] EDMS Franck Tadeo MD MD pkEmy Hearn cc3 Corrections: (The following items were deleted from the chart) 04:41 04:37 Neuro: Orientation: is normal, Mentation: is normal, Cranial nerves: grossly pkl normal, Motor: pkl 07:01 06:48 10/18/2019 06:48 Discharged to Home. Impression: Cystitis. Condition is Stable. cc3 Forms are Medication Reconciliation Form, Thank You Letter, Antibiotic Education, Prescription Opioid Use. Follow up: Private Physician; When: 2 - 3 days; Reason: Re-evaluation by your physician. Problem is new. Symptoms have improved. pkl
--- NOTE | 2019-10-18 06:49 | ER ---
Nurse's Notes [facility] Name: Marianna Phillips Age: 39 yrs Sex: Female : 1980 Arrival Date: 10/18/2019 Time: 03:09 Bed 15 Private MD: Diagnosis: Cystitis Presentation: 10/18 03:30 Presenting complaint: Patient states: "I woke up this morning due to sudden suprapubic cc3 pain that just started today. I also have difficulty passing urine and when I do pass it is very scanty in amount and I feel pain right after passing. I took a glass of rum tonight as well". Transition of care: patient was not received from another setting of care. Onset of symptoms was October 18, 2019. Risk Assessment: Do you want to hurt yourself or someone else? Patient reports no desire to harm self or others. Initial Sepsis Screen: Does the patient meet any 2 criteria? No. Patient's initial sepsis screen is negative. Does the patient have a suspected source of infection? Yes: Dysuria/Frequency/Urgency/UTI. Care prior to arrival: Medication(s) given: patient said she took at home Zantac 150 mg, some pepto and some bismo at around 0300H this morning. 03:30 Method Of Arrival: Ambulatory cc3 03:30 Acuity: YUNIOR 3 cc3 Triage Assessment: 03:30 General: Appears in no apparent distress. uncomfortable, Behavior is calm, cooperative, cc3 appropriate for age. Pain: Complains of pain in suprapubic, pain after urinating Pain currently is 10 out of 10 on a pain scale. Quality of pain is described as aching. EENT: No signs and/or symptoms were reported regarding the EENT system. Neuro: Level of Consciousness is awake, alert, obeys commands, Oriented to person, place, time, situation, Appropriate for age. Cardiovascular: Denies chest pain, Heart tones S1 S2 present Capillary refill < 3 seconds in bilateral fingers Patient's skin is warm and dry. Respiratory: Airway is patent Respiratory effort is even, unlabored, Respiratory pattern is regular, symmetrical, Breath sounds are clear bilaterally. GI: Abdomen is flat, Bowel sounds present X 4 quads. Abd is soft X 4 quads Abdomen is tender to palpation in suprapubic. : Parent/caregiver report the patient having pain after passing urine. Derm: Skin is intact, is healthy with good turgor, Skin is normal, black. Musculoskeletal: Circulation, motion, and sensation intact. Range of motion: intact in all extremities. 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 - Social history:: Smoking status: Patient/guardian denies using tobacco, never smoked. - Ebola Screening: : No symptoms or risks identified at this time. Screenin:30 Abuse screen: Denies threats or abuse. Denies injuries from another. Nutritional cc3 screening: No deficits noted. Tuberculosis screening: No symptoms or risk factors identified. Fall Risk Ambulatory Aid- None/Bed Rest/Nurse Assist (0 pts). Gait- Normal/Bed Rest/Wheelchair (0 pts) Mental Status- Oriented to own ability (0 pts). Assessment: 03:30 General: see triage assessment. cc3 04:18 Reassessment: Patient appears in no apparent distress at this time. Patient and/or cc3 family updated on plan of care and expected duration. Pain level reassessed. Patient is alert, oriented x 3, equal unlabored respirations, skin warm/dry/pink. 05:30 Reassessment: Patient appears in no apparent distress at this time. Patient and/or cc3 family updated on plan of care and expected duration. Pain level reassessed. Patient is alert, oriented x 3, equal unlabored respirations, skin warm/dry/pink. Patient taken by computer operations technician to their department by wheelchair. Patient states feeling better. Patient states symptoms have improved. 05:50 Reassessment: Patient came back from CT scan department, awaiting result. cc3 06:18 Reassessment: Patient appears in no apparent distress at this time. Patient and/or cc3 family updated on plan of care and expected duration. Pain level reassessed. Patient is alert, oriented x 3, equal unlabored respirations, skin warm/dry/pink. 07:00 Reassessment: Patient appears in no apparent distress at this time. Patient and/or cc3 family updated on plan of care and expected duration. Pain level reassessed. Patient is alert, oriented x 3, equal unlabored respirations, skin warm/dry/pink. Dr. Tadeo discharged the patient home with prescription given. IV cannula removed and patient left ER vitally stable and ambulatory with her . No valuables left in the patient's room. Patient denies pain at this time. Patient states feeling better. Patient states symptoms have improved. Vital Signs: 03:30 BP 119 / 83; Pulse 82; Resp 17 S; Temp 98(O); Pulse Ox 100% on R/A; Weight 58.06 kg cc3 (R); Height 5 ft. 2 in. (157.48 cm) (R); Pain 10/10; 04:40 BP 109 / 67; Pulse 72; Resp 17 S; Pulse Ox 100% on R/A; cc3 05:10 BP 121 / 84; Pulse 69; Resp 18 S; Pulse Ox 100% on R/A; cc3 07:00 BP 123 / 87; Pulse 70; Resp 16 S; Pulse Ox 100% on R/A; Pain 0/10; cc3 03:30 Body Mass Index 23.41 (58.06 kg, 157.48 cm) cc3 ED Course: 03:09 Patient arrived in ED. ds1 03:16 Franck Tadeo MD is Attending Physician. pkl 03:30 Patient has correct armband on for positive identification. Placed in gown. Bed in low cc3 position. Call light in reach. Side rails up X2. Pulse ox on. NIBP on. 03:30 Arm band placed on right wrist. Patient notified of wait time. cc3 03:40 Emy Mariano is Primary Nurse. cc3 03:58 Triage completed. cc3 04:30 Inserted saline lock: 20 gauge in right antecubital area, using aseptic technique. cc3 Blood collected. 05:14 Radiology exam delayed due to lab results not completed at this time. (BUN/Creatinine). eh 05:38 Note: INSERTED 22G IN LEFT AC. Patient moved to CT via wheelchair. eh 05:40 Inserted saline lock: 22 gauge in left antecubital area, using aseptic technique. cc3 inserted from CT scan department by computer operations technician Alexis. 05:50 IV discontinued, intact, bleeding controlled, No redness/swelling at site. Pressure cc3 dressing applied, Right antecubital area. 06:01 CT completed. Patient tolerated procedure well. Patient moved back from CT. 07:00 No provider procedures requiring assistance completed. IV discontinued, intact, cc3 bleeding controlled, No redness/swelling at site. Pressure dressing applied. Administered Medications: 04:45 Drug: NS 0.9% 1000 ml Route: IV; Rate: 1000 ml; Site: right antecubital; cc3 04:45 Drug: morphine 2 mg {Note: RASS 0.} Route: IVP; Site: right antecubital; cc3 06:00 Follow up: Response: No adverse reaction; Pain is unchanged, physician notified cc3 04:50 Drug: Zofran 4 mg Route: IVP; Site: right antecubital; cc3 05:50 Follow up: Response: No adverse reaction; Nausea is decreased cc3 06:15 Drug: morphine 2 mg {Note: RASS 0.} Route: IVP; Site: left antecubital; cc3 07:00 Follow up: Response: No adverse reaction; Pain is decreased; RASS: Alert and Calm (0) cc3 06:50 Drug: Cipro 500 mg Route: PO; cc3 07:00 Follow up: Response: No adverse reaction cc3 Outcome: 06:48 Discharge ordered by . terri 07:00 Discharged to home ambulatory, with family. cc3 07:00 Condition: stable 07:00 Discharge instructions given to patient, family, Instructed on discharge instructions, follow up and referral plans. medication usage, Demonstrated understanding of instructions, follow-up care, medications, Prescriptions given X 2. 07:01 Patient left the ED. cc3 Signatures: Franck Tadeo MD MD pkl Hagler, Ervin Tonja Mirza Charlene cc3 Corrections: (The following items were deleted from the chart) 04:01 03:30 Presenting complaint: Patient states: "I woke up this morning due to sudden cc3 suprapubic pain that just started today. I also have difficulty passing urine and when I do pass it is very scanty in amount and I feel pain right after passing" cc3 06:05 05:50 IV discontinued, intact, bleeding controlled, No redness/swelling at site. cc3 Pressure dressing applied, cc3
[2019-10-18] MEDS ORDERED: CIPROFLOXACIN HCL 500 MG TAB ONE (06:52)
--- NOTE | 2019-10-18 10:17 | RAD REPORT ---
EXAM DESCRIPTION: CT - Abdomen Pelvis W Contrast - 10/18/2019 6:45 am CLINICAL HISTORY: Suprapubic pain while urinating. COMPARISON: CT abdomen and pelvis with contrast 05/09/2018 TECHNIQUE: Axial CT imaging of the abdomen and pelvis performed with intravenous contrast. Reformatt ed coronal and sagittal images reviewed. A dose reduction technique was utilized with automated exposure control according to patient size. FINDINGS: Clear lung bases. Heart is normal in size. Normal liver and gallbladder. Normal spleen, pancreas, adrenal glands, and kidneys. Aorta and inferio r vena cava are normal in caliber. No adenopathy. Mesenteric vessels appear normal. Normal stomach. Small bowel loops are normal in caliber. Normal right lower quadrant appendix. Normal colon. No mesenteric edema, ascites, or free air. The bladder is diffusely thickened. There is slight perivesicle edema. Normal uterus. Tubal ligation clips are present. Ovarian follicular changes are noted. There is no pelvic adenopathy. The lumbosacral alignment appears normal. Intact bony pelvis. Normal hips. Subcutaneous tissues appea r normal. IMPRESSION: 1. Cystitis. 2. No acute finding within the abdomen. Electronically signed by: Simran Grey DO 10/18/2019 6:31 AM INDUSTRIAL STAFF NURSE Due to temporary technical issues with the PACS/Fluency reporting system, reports are being signed by the in house radiologist as a courtesy to ensure prompt reporting. The interpreting radiologist is f ully responsible for the content of the report
[2019-10-18 16:58] VITALS: TEMP 98; O2SAT 100
[2019-10-18 17:00] VITALS: BP 121/84
== END 2019-10-18 07:01 | disposition home or self-care (01) ==
LOC: ER 03:06
DX: N30.90 Cystitis, unspecified without hematuria (principal)
CPT/HCPCS: 36415; 74177; 80048; 80076; 81003; 81015; 83690; 85025; 87086; 87088; 96374; 96375; 99284; J2270; J2405; J7030; Q9967

== ENCOUNTER 2020-02-25 19:16 | Emergency (ER) | payer SELFPAY ==
[2020-02-25 23:52] VITALS: BP 110/77
[2020-02-25 23:54] VITALS: O2SAT 100
== END 2020-02-25 23:38 | disposition home or self-care (01) ==
LOC: ER 19:16
DX: R10.31 Right lower quadrant pain (principal)
CPT/HCPCS: 36415; 74177; 80048; 80076; 81003; 81015; 81025; 83690; 85025; 96374; 96375; 99284; J2175; J2405

== ENCOUNTER 2020-07-19 13:11 | Emergency (ER) | payer OTHER, SELFPAY ==
--- OUTSIDE RECORDS SUMMARY | 2020-07-19 13:13 | XMS REPORT | Clinical Summary ---
:1980 Author Organization [facility] [address] [place] [address] Care Team Providers Name Role Phone Hyacinth [...] Not on file Results Not on fileafter 07/19/2019 Advance Directives For more information, please contact:[facility] CenterRetellityKind[facility] First HillPraxqe[address] [place], [place] [phone] Code Status Date Activated Date Inactivated Comments Full Code 07/04/2017 2:46 PM 07/08/2017 11:23 PM This code status was determined by: Patient
--- OUTSIDE RECORDS SUMMARY | 2020-07-19 13:14 | XMS REPORT | Continuity of Care Document ---
:1980 Author Organization [facility] t Address [address] [place] [address] Care Team Providers Name Role Phone [facility] Primary Care Physician Lab, Fam Pob I Attending Clinician Unavailable LAZARIDIS Attending Clinician Unavailable LAZARIMARY Admitting Clinician Unavailable Problems Condition Condition Condition Status Onset Resolution Last Treating Co mments Source Name Details Category Date Date Treatment Clinician Date Conversion Conversion Disease Active [facility]: [facility] 00 [place] Depression Depression Disease Active [facility] , , [facility] unspecifie unspecifie 00[facility]00: [facility] d d 00 [facility] depression depression type type Acute Acute Disease Active [facility] - stroke stroke 00:00: Medical 00 [place] Allergies, Adverse Reactions, Alerts This patient has no known allergies or adverse reactions. Family History Family Member Diagnosis Comments Start Date Stop Date Source Natural mother Diabetes [facility] Family member Lupus [facility] Social History Social Habit Start Date Stop Date Quantity Comments Source Sex Assigned At [facility] Smoking Status Start Date Stop Date Source Never smoker [facility] Medications This patient has no known medications. Procedures This patient has no known procedures. Encounters Start End Encounter Admission Attending Care Care Encounter Source Date/Time Date/Time Type Type Clinicians Facility Department ID 2020-05-27 2020-05-27 Laboratory Lab, [facility] [id number] 16:17:52 16:37:52 Only Fam [facility] [id number] [place] [id number] Cb [id number] nal [address] One Results Test Description Test Time Test Comments Results Result Sour e Comments BREAST ULTRASOUND 2019-03-06 - DIAG MAMM BILATERAL BILATERAL 11:11:26 ALAN CAD DIGITALBILATERAL FIRST EVER DIGITAL DIAGNOSTIC MAMMOGRAM 3D/2D WITH CAD: 03/06/2019Digital breast tomosynthesis was performed in addition to routine CC and MLO views. Current mammographic images were evaluated by either a [employer] or a [employer]. Image[employer] Security[employer] CAD (computer aided detection system). No prior [...] - 03/07/2019 12:50:12Imaging Technologist: Nia GOMES, [facility]-FWletter sent: BIRADS 1-2 Combo FU Letter Mammogram BI-RADS: 0 Indeterminate Ultrasound BI-RADS: 2 Benign DIAG MAMM 2019-03-06 - DIAG MAMM BILATERAL BILATERAL ALAN CAD 11:11:26 ALAN CAD DIGITAL DIGITALBILATERAL FIRST EVER DIGITAL DIAGNOSTIC MAMMOGRAM 3D/2D WITH CAD: 03/06/2019Digital breast tomosynthesis was performed in addition to routine CC and MLO views. Current mammographic images were evaluated by either a [employer] M[employer] or a [employer]. Image[employer] CAD (computer aided detection system). No [...] - 03/07/2019 12:50:12Imaging Technologist: Nia GOMES, [facility]-FWletter sent: BIRADS 1-2 Combo FU Letter Mammogram BI-RADS: 0 Indeterminate Ultrasound BI-RADS: 2 Benign DILUTE WARD [facility]OM (DRVV) 2017-07-10 14:40:00 Test Item Value Reference Range Interpretation Comme nts PROTIME (BEAKER) (test code = 759) 14.5 seconds 11.7-14.7 INR (BEAKER) (test code = 370) 1.1 <=5.9 PARTIAL THROMBOPLASTIN TIME (BEAKER) 28.6 seconds 22.5-36.0 (test code = 760) DRVV INTERPRETATION (BEAKER) (test Negative screen for Lupus code = 2406) Anticoagulant [id number]-901 (BEAKER) (test Angel Hamilton M.D. (electonic code = 2610) signature) DRVV SCREEN RATIO (BEAKER) (test 0.59 <1.20 code = 2707) Effective 03/25/2014: Test Method ChangeDRVV Screen Ratio, DRVV 1/1 Screen Ratio, DRVV Confirm Ratio,DRVV Normalized Ratio Reference Range: <1.2Protime Reference Range ChangeNew: 11.7-14.7 Previous: 9.8-12.0PTT Reference Range ChangeNew: 22.5-36.0 Previous: 25.8-34.5HEXAGONAL [id number] 12:56:00 Test Item Value Reference Range Interpretation Comments HEXAGONAL PHOSPHOLIPID (BEAKER) Negative (test code = 1790) BASIC METABOLIC [id number] 05:51:00 Test Item Value Reference Range Interpretation Comments SODIUM (BEAKER) 140 meq/L 136-145 (test code = 381) POTASSIUM (BEAKER) 4.1 meq/L 3.5-5.1 (test code = 379) CHLORIDE (BEAKER) 109 meq/L 98-107 H (test code = 382) CO2 (BEAKER) (test 22 meq/L 22-29 code = 355) BLOOD UREA NITROGEN 8 mg/dL 7-21 (BEAKER) (test code = 354) CREATININE (BEAKER) 1.02 mg/dL 0.57-1.25 (test code = 358) GLUCOSE RANDOM 86 mg/dL 70-105 (BEAKER) (test code = 652) CALCIUM (BEAKER) 10.2 mg/dL 8.4-10.2 (test code = 697) EGFR (BEAKER) (test 74 mL/min/1.73 ESTIMA JAVON GFR IS code = 1092) sq m NOT ACCURATE CREATININE CLEARANCE IN PREDICTING GLOMERULAR FILTRATION RATE . ESTIMATED GFR I S NOT APPLICABLE FOR DIALYSIS PATIEN TS. CBC W/PLT COUNT & AUTO [id number] 05:29:00 Test Item Value Reference Range Interpretation Comments WHITE BLOOD CELL COUNT (BEAKER) 5.5 K/ L 3.5-10.5 (test code = 775) RED BLOOD CELL COUNT (BEAKER) 4.09 M/ L 3.93-5.22 (test code = 761) HEMOGLOBIN (BEAKER) (test code = 12.5 GM/DL 11.2-15.7 410) HEMATOCRIT (BEAKER) (test code = 36.6 % 34.1-44.9 411) MEAN CORPUSCULAR VOLUME (BEAKER) 89.5 fL 79.4-94.8 (test code = 753) MEAN CORPUSCULAR HEMOGLOBIN 30.6 pg 25.6-32.2 (BEAKER) (test code = 751) MEAN CORPUSCULAR HEMOGLOBIN CONC 34.2 GM/DL 32.2-35.5 (BEAKER) (test code = 752) RED CELL DISTRIBUTION WIDTH 13.5 % 11.7-14.4 (BEAKER) (test code = 412) PLATELET COUNT (BEAKER) (test 270 K/CU MM 150-450 code = 756) MEAN PLATELET VOLUME (BEAKER) 10.1 fL 9.4-12.3 (test code = 754) NUCLEATED RED BLOOD CELLS 0 /100 WBC 0-0 (BEAKER) (test code = 413) NEUTROPHILS RELATIVE PERCENT 60 % (BEAKER) (test code = 429) LYMPHOCYTES RELATIVE PERCENT 30 % (BEAKER) (test code = 430) MONOCYTES RELATIVE PERCENT 8 % (BEAKER) (test code = 431) EOSINOPHILS RELATIVE PERCENT 2 % (BEAKER) (test code = 432) BASOPHILS RELATIVE PERCENT 0 % (BEAKER) (test code = 437) NEUTROPHILS ABSOLUTE COUNT 3.29 K/ L 1.56-6.13 (BEAKER) (test code = 670) LYMPHOCYTES ABSOLUTE COUNT 1.62 K/ L 1.18-3.74 (BEAKER) (test code = 414) MONOCYTES ABSOLUTE COUNT (BEAKER) 0.42 K/ L 0.24-0.36 H (test code = 415) EOSINOPHILS ABSOLUTE COUNT 0.11 K/ L 0.04-0.36 (BEAKER) (test code = 416) BASOPHILS ABSOLUTE COUNT (BEAKER) 0.01 K/ L 0.01-0.08 (test code = 417) IMMATURE GRANULOCYTES-RELATIVE 0 % 0-1 PERCENT (BEAKER) (test code = 2801) SEDIMENTATION [id number] 10:56:00 Test Item Value Reference Range Interpretation Comments SEDIMENTATION RATE, ERYTHROCYTE 21 mm/HR 0-20 H (BEAKER) (test code = 766) CBC W/PLT COUNT & AUTO [id number] 09:30:00 Test Item Value Reference Range Interpretation Comments WHITE BLOOD CELL COUNT (BEAKER) 5.2 K/ L 3.5-10.5 (test code = 775) RED BLOOD CELL COUNT (BEAKER) 3.86 M/ L 3.93-5.22 L (test code = 761) HEMOGLOBIN (BEAKER) (test code = 11.5 GM/DL 11.2-15.7 410) HEMATOCRIT (BEAKER) (test code = 34.4 % 34.1-44.9 411) MEAN CORPUSCULAR VOLUME (BEAKER) 89.1 fL 79.4-94.8 (test code = 753) MEAN CORPUSCULAR HEMOGLOBIN 29.8 pg 25.6-32.2 (BEAKER) (test code = 751) MEAN CORPUSCULAR HEMOGLOBIN CONC 33.4 GM/DL 32.2-35.5 (BEAKER) (test code = 752) RED CELL DISTRIBUTION WIDTH 13.6 % 11.7-14.4 (BEAKER) (test code = 412) PLATELET COUNT (BEAKER) (test 268 K/CU MM 150-450 code = 756) MEAN PLATELET VOLUME (BEAKER) 9.9 fL 9.4-12.3 (test code = 754) NUCLEATED RED BLOOD CELLS 0 /100 WBC 0-0 (BEAKER) (test code = 413) NEUTROPHILS RELATIVE PERCENT 43 % (BEAKER) (test code = 429) LYMPHOCYTES RELATIVE PERCENT 45 % (BEAKER) (test code = 430) MONOCYTES RELATIVE PERCENT 9 % (BEAKER) (test code = 431) EOSINOPHILS RELATIVE PERCENT 3 % (BEAKER) (test code = 432) BASOPHILS RELATIVE PERCENT 0 % (BEAKER) (test code = 437) NEUTROPHILS ABSOLUTE COUNT 2.23 K/ L 1.56-6.13 (BEAKER) (test code = 670) LYMPHOCYTES ABSOLUTE COUNT 2.34 K/ L 1.18-3.74 (BEAKER) (test code = 414) MONOCYTES ABSOLUTE COUNT (BEAKER) 0.45 K/ L 0.24-0.36 H (test code = 415) EOSINOPHILS ABSOLUTE COUNT 0.16 K/ L 0.04-0.36 (BEAKER) (test code = 416) BASOPHILS ABSOLUTE COUNT (BEAKER) 0.02 K/ L 0.01-0.08 (test code = 417) IMMATURE GRANULOCYTES-RELATIVE 0 % 0-1 PERCENT (BEAKER) (test code = 2801) (MANUAL DIFFERENTIAL)2017-07-06 09:30:00 Test Item Value Reference Range Interpretation Comments TOTAL COUNTED (BEAKER) (test code = 1351) POCT-GLUCOSE [id number] 06:41:00 Test Item Value Reference Range Interpretation Comments POC-GLUCOSE METER 103 mg/dL 70-110 TESTED AT [place] [address] (BEAKER) (test code = [facility] 1538) [address] BASIC METABOLIC [id number] 05:21:00 Test Item Value Reference Range Interpretation Comments SODIUM (BEAKER) 140 meq/L 136-145 (test code = 381) POTASSIUM (BEAKER) 4.0 meq/L 3.5-5.1 (test code = 379) CHLORIDE (BEAKER) 108 meq/L 98-107 H (test code = 382) CO2 (BEAKER) (test 23 meq/L 22-29 code = 355) BLOOD UREA NITROGEN 6 mg/dL 7-21 L (AKER) (test code = 354) CREATININE (BEAKER) 0.96 mg/dL 0.57-1.25 (test code = 358) GLUCOSE RANDOM 92 mg/dL 70-105 ([facility]) (test code = 652) CALCIUM (BEAKER) 9.3 mg/dL 8.4-10.2 (test code = 697) EGFR ([facility]) (test 79 mL/min/1.73 ESTIMA JAVON GFR IS code = 1092) sq m NOT ACCURATE CREATININE CLEARANCE IN PREDICTING GLOMERULAR FILTRATION RATE . ESTIMATED GFR I S NOT APPLICABLE FOR DIALYSIS PATIEN TS. POCT-GLUCOSE [id number] 23:38:00 Test Item Value Reference Range Interpretation Comments POC-GLUCOSE METER 84 mg/dL 70-110 TESTED AT [place] [address] ([facility]) (test code = [facility] [address] 1538) POCT-GLUCOSE [id number] 16:02:00 Test Item Value Reference Range Interpretation Comments POC-GLUCOSE METER 80 mg/dL 70-110 TESTED AT [place] [address] ([facility]) (test code = [facility] [address] 1538) ANTI-NUCLEAR ANTIBODY (MEI)2017-07-05 13:36:00 Test Item Value Reference Range Interpretation Comments ANTI-NUCLEAR ANTIBODY (MEI) ([facility]) Negative Negative (test code = 418) CARDIOLIPIN ANTIBODIES, IGG AND [id number] 13:10:00 Test Item Value Reference Range Interpretation Comments ANTICARDIOLIPIN IGG ANTIBODY (BEAKER) < GPL (test code = 712) ANTICARDIOLIPIN IGM ANTIBODY (BEAKER) 0.2 MPL (test code = 713) Anticardiolipin IgG Result Interpretation:NEG: <20 GPL; U/mlPOS: >/=20 GPL; U/mlAnticardiolipin IgM Result Interpretation:NEG: <20 MPL; U/mlPOS: >/=20 MPL; U/mlPOCT-GLUCOSE [id number] 12:20:00 Test Item Value Reference Range Interpretation Comments POC-GLUCOSE METER 76 mg/dL 70-110 TESTED AT [place] [address] ([facility]) (test code = [place] [facility] [address] 1538) [id number] 11:07:00 Test Item Value Reference Range Interpretation Comments RPR SCREEN ([facility]) (test code = Nonreactive Nonreactive 420) RHEUMATOID FACTOR AB, REFLEX TO [id number] 11:03:00 Test Item Value Reference Range Interpretation Comments RHEUMATOID FACTOR ([facility]) (test Negative code = 573) HEMOGLOBIN [id number] 08:35:00 Test Item Value Reference Range Interpretation Comments HEMOGLOBIN A1C 5.0 % 4.3-6.1 POSSIBLE HEMO GLOBIN S ([facility]) (test code = VARIAN T NOTED IN 368) HEMOGLOBIN A1C CHROMATOGRAPH. SUGGEST HEMOGLOBIN ELEC TROPHORESIS IF CLINICALLY I NDICATED. FastingPOCT-GLUCOSE [id number] 08:15:00 Test Item Value Reference Range Interpretation Comments POC-GLUCOSE METER 93 mg/dL 70-110 TESTED AT [place] [address] ([facility]) (test code = [facility] [place] [facility] [address] 1538) TSH/FREE T4 IF [id number] 06:26:00 Test Item Value Reference Range Interpretation Comments THYROID STIMULATING HORMONE 3.65 uIU/mL 0.35-4.94 ([facility]) (test code = 772) VITAMIN B12 AND [id number] 06:26:00 Test Item Value Reference Range Interpretation Comments VITAMIN B12 ([facility]) (test code = 726 pg/mL 213816 774) FOLATE ([facility]) (test code = 362) 12.3 ng/mL >=7.0 Effective 10/07/2014: Folate Reference Range ChangeNew: >=7.0 Previous: >=5.4LIPID [id number] 05:56:00 Test Item Value Reference Range Interpretation Comments TRIGLYCERIDES ([facility]) (test code = 65 mg/dL 540) CHOLESTEROL (BEAKER) (test code = 140 mg/dL 631) HDL CHOLESTEROL (BEAKER) (test code 39 mg/dL = 976) LDL CHOLESTEROL CALCULATED (BEAKER) 88 mg/dL (test code = 633) Triglyceride Reference Range: Low Risk <150 Borderline 150-199 High Risk 200-499 Very High Risk >=500Cholesterol Reference Range: Low Risk <200 Borderline 200-239 High Risk >240HDL Cholesterol Reference Range: Low Risk >=60 High Risk <40LDL Cholesterol Reference Range: Optimal <100 Near Optimal 100-129 Borderline 130-159 High 160-189 Very High >=190 FastingBASIC METABOLIC [id number] 05:56:00 Test Item Value Reference Range Interpretation Comments SODIUM (BEAKER) 142 meq/L 136-145 (test code = 381) POTASSIUM (BEAKER) 3.5 meq/L 3.5-5.1 (test code = 379) CHLORIDE (BEAKER) 113 meq/L 98-107 H (test code = 382) CO2 (BEAKER) (test 22 meq/L 22-29 code = 355) BLOOD UREA NITROGEN 6 mg/dL 7-21 L (BEAKER) (test code = 354) CREATININE (BEAKER) 0.79 mg/dL 0.57-1.25 (test code = 358) GLUCOSE RANDOM 84 mg/dL 70-105 (BEAKER) (test code = 652) CALCIUM (BEAKER) 8.2 mg/dL 8.4-10.2 L (test code = 697) EGFR (BEAKER) (test 99 mL/min/1.73 ESTIMA JAVON GFR IS code = 1092) sq m NOT ACCURATE CREATININE CLEARANCE IN PREDICTING GLOMERULAR FILTRATION RATE . ESTIMATED GFR I S NOT APPLICABLE FOR DIALYSIS PATIEN TS. FastingHEPATIC FUNCTION [id number] 05:56:00 Test Item Value Reference Range Interpretation Comments TOTAL PROTEIN (BEAKER) (test code = 6.1 gm/dL 6.0-8.3 770) ALBUMIN (BEAKER) (test code = 1145) 3.2 g/dL 3.5-5.0 L BILIRUBIN TOTAL (BEAKER) (test code 0.5 mg/dL 0.2-1.2 = 377) BILIRUBIN DIRECT (BEAKER) (test 0.2 mg/dL 0.1-0.5 code = 706) ALKALINE PHOSPHATASE (BEAKER) (test 54 U/L 40-150 code = 346) AST (SGOT) (BEAKER) (test code = 14 U/L 5-34 353) ALT (SGPT) (BEAKER) (test code = 6 U/L 6-55 347) FastingCREATINE KINASE (CK), TOTAL AND [id number] 05:56:00 Test Item Value Reference Range Interpretation Comments CREATINE KINASE TOTAL (BEAKER) 100 U/L 29-200 (test code = 380) CREATINE KINASE-MB (BEAKER) (test 0.4 ng/mL 0.0-6.6 code = 750) CREATINE KINASE-MB INDEX (BEAKER) 0.4 % (test code = 395) Effective 10/07/2014: CK-MB Reference Range ChangeNew: 0.0-6.6 Previous: 0.0-4.9CK-MB Reference Range:<6.7 Normal6.7-10.0 Borderline>10.0 AbnormalFastingFastingTROPONIN [id number] 05:54:00 Test Item Value Reference Range Interpretation Comments TROPONIN I (BEAKER) (test code = 0.01 ng/mL 0.00-0.03 397) Effective 10/07/2014: Reference Range ChangeNew: 0.00-0.03 Previous [...] neurological disease, and persistent tachyarrhythmia.FastingCBC W/PLT COUNT & AUTO [id number] 05:44:00 Test Item Value Reference Range Interpretation Comments WHITE BLOOD CELL COUNT (BEAKER) 4.9 K/ L 3.5-10.5 (test code = 775) RED BLOOD CELL COUNT (BEAKER) 3.58 M/ L 3.93-5.22 L (test code = 761) HEMOGLOBIN (BEAKER) (test code = 10.9 GM/DL 11.2-15.7 L 410) HEMATOCRIT (BEAKER) (test code = 32.7 % 34.1-44.9 L 411) MEAN CORPUSCULAR VOLUME (BEAKER) 91.3 fL 79.4-94.8 (test code = 753) MEAN CORPUSCULAR HEMOGLOBIN 30.4 pg 25.6-32.2 (BEAKER) (test code = 751) MEAN CORPUSCULAR HEMOGLOBIN CONC 33.3 GM/DL 32.2-35.5 (BEAKER) (test code = 752) RED CELL DISTRIBUTION WIDTH 13.6 % 11.7-14.4 (BEAKER) (test code = 412) PLATELET COUNT (BEAKER) (test 258 K/CU MM 150-450 code = 756) MEAN PLATELET VOLUME (BEAKER) 10.5 fL 9.4-12.3 (test code = 754) NUCLEATED RED BLOOD CELLS 0 /100 WBC 0-0 (BEAKER) (test code = 413) NEUTROPHILS RELATIVE PERCENT 52 % (BEAKER) (test code = 429) LYMPHOCYTES RELATIVE PERCENT 36 % (BEAKER) (test code = 430) MONOCYTES RELATIVE PERCENT 10 % (BEAKER) (test code = 431) EOSINOPHILS RELATIVE PERCENT 2 % (BEAKER) (test code = 432) BASOPHILS RELATIVE PERCENT 0 % (BEAKER) (test code = 437) NEUTROPHILS ABSOLUTE COUNT 2.53 K/ L 1.56-6.13 (BEAKER) (test code = 670) LYMPHOCYTES ABSOLUTE COUNT 1.74 K/ L 1.18-3.74 (BEAKER) (test code = 414) MONOCYTES ABSOLUTE COUNT (BEAKER) 0.47 K/ L 0.24-0.36 H (test code = 415) EOSINOPHILS ABSOLUTE COUNT 0.10 K/ L 0.04-0.36 (BEAKER) (test code = 416) BASOPHILS ABSOLUTE COUNT (BEAKER) 0.02 K/ L 0.01-0.08 (test code = 417) IMMATURE GRANULOCYTES-RELATIVE 0 % 0-1 PERCENT (BEAKER) (test code = 2801) PROTHROMBIN TIME/[id number] 05:40:00 Test Item Value Reference Range Interpretation Comments PROTIME (BEAKER) (test code = 14.3 seconds 11.7-14.7 759) INR (BEAKER) (test code = 370) 1.1 <=5.9 RECOMMENDED COUMADIN/WARFARIN INR THERAPY RANGESSTANDARD DOSE: 2.0 - 3.0 Includes: PROPHYLAXIS forvenous thrombosis, systemic embolization; TREATMENT for venous thrombosis and/or pulmonary embolus.HIGH RISK: Target INR is 2.5-3.5 for patients with mechanical heart valves.POCT-GLUCOSE [id number] 22:44:00 Test Item Value Reference Range Interpretation Comments POC-GLUCOSE METER 82 mg/dL 70-110 TESTED AT [facility] 6720 (BEAKER) ([facility] = [facility] [address] 1538) RAPID DRUG SCREEN, [id number] 20:39:00 Test Item Value Reference Range Interpretation Comments BARBITURATE URINE (BEAKER) (test Negative Negative code = 725) BENZODIAZEPINE SCREEN URINE (BEAKER) Negative Negative (test code = 726) COCAINE (METAB.) SCREEN (BEAKER) Negative Negative (test code = 1164) METHADONE SCREEN (BEAKER) (test code Negative Negative = 1436) OPIATE SCREEN URINE (BEAKER) (test Negative Negative code = 734) CANNABINOID SCREEN URINE (BEAKER) Negative Negative (test code = 727) AMPH/METHAMPH SCREEN (BEAKER) (test Negative Negative code = 1438) PHENCYCLIDINE SCREEN URINE (BEAKER) Negative Negative (test code = 608) OXYCODONE SCREEN URINE (BEAKER) Negative Negative (test code = 2761) DRUG CUTOFF CONC.Cocaine 300 ng/mL Cannabinoid 50 ng/mL Benzodiazepine 200 ng/mLBarbiturate 200 ng/mLPhencyclidine 25 ng/mLOpiate 300 ng/mLMethadone 300 ng/mLAmphetamine/ 1000 ng/mL MethamphetamineOxycodone 300 ng/mLThis assay provides an unconfirmed qualitative test result for the clinical management of patients in emergency situations. Chain of custody not maintained. Some oknv-qlw-dfgdfgb medications, as well as adulterants, may cause inaccurate results. Clinical correlation should be applied. A more comprehensive drug screen or confirmation of a detected drug may be performed upon request. URINALYSIS W/ [id number] 18:36:00 Test Item Value Reference Range Interpretation Comments COLOR (BEAKER) (test code = Yellow 470) CLARITY (BEAKER) (test code = Hazy 469) SPECIFIC GRAVITY UA (BEAKER) 1.016 1.001-1.035 (test code = 468) PH UA (BEAKER) (test code = 6.5 5.0-8.0 467) PROTEIN UA (BEAKER) (test code 20 mg/dL Negative A = 464) GLUCOSE UA (BEAKER) (test code Negative Negative = 365) KETONES UA (BEAKER) (test code Trace Negative A = 371) BILIRUBIN UA (BEAKER) (test Negative Negative code = 462) BLOOD UA (BEAKER) (test code = Large Negative A 461) NITRITE UA (BEAKER) (test code Negative Negative = 465) LEUKOCYTE ESTERASE UA (BEAKER) Negative Negative (test code = 466) UROBILINOGEN UA (BEAKER) (test 0.2 mg/dL 0.2-1.0 code = 463) RBC UA (BEAKER) (test code = 102 /HPF 519) WBC UA (BEAKER) (test code = 19 /HPF 520) SQUAMOUS EPITHELIAL (BEAKER) 6 /HPF (test code = 516) SOURCE(BEAKER) (test code = Urine, Voided 7287)
--- OUTSIDE RECORDS SUMMARY | 2020-07-19 13:14 | XMS REPORT | Summary of Care ---
:1980 Author Organization [facility] Address [address] [place] [address] Care Team Providers Name Role Phone Pcp, Patient Does Not Have A Primary Care Provider [id number] Reason for Visit Reason Comments Exposure Encounter Details Date Type Department Care Team Description 05/27/2020 Laboratory Only [facility] Family Cathi Corral FNP [address] [facility] [address] [place] [id number] Exposure to Covid-19 Medicine - [facility], Ad[facility] Fam Pob I Virus (Primary Dx) [address] [place] [address] Allergies No Known Allergiesdocumented as of this encounter (statuses as of 05/27/2020) Medications Medication Sig Dispensed Refills Start Date End Date Status ranitidine (ZANTAC) 150 Take 1 tablet by 30 tablet 1 9 Active mg tabletIndications: mouth 2 (two) Other chest pain, times daily. Anxiety attack, Follow up with Gastroesophageal reflux your MD for disease with further esophagitis evaluation and treatment. ondansetron (ZOFRAN Take 1 tablet by 20 tablet 0 12/22/2018 Active ODT) 4 mg mouth every 8 disintegrating (eight) hours as tabletIndications: needed for Nausea Other chest pain, and Vomiting Anxiety attack, (N/V). Gastroesophageal reflux disease with esophagitis documented as of this encounter (statuses as of 05/27/2020) Active Problems No known active problemsdocumented as of this encounter (statuses as of 05/27/2020) Social History Tobacco Use Types Packs/Day Years Used Date Never Assessed Sex Assigned at Date Recorded Not on file Job Start Date Occupation Industry Not on file Not on file Not on file Travel History Travel Start Travel End No recent travel history available. COVID-19 Exposure Response Date Recorded In the last month, have you been in contact with Yes 05/27/2020 1:14 PM CDT someone who was confirmed or suspected to have Coronavirus / COVID-19? documented as of this encounter Last Filed Vital Signs Not on filedocumented in this encounter Plan of Treatment Date Type Specialty Care Team Description 05/29/2020 Laboratory Only Phlebotomy Only, [facility] Test Name Type Priority Associated Diagnoses Order S chedule COVID-19 (PCR MOLECULAR LAB Routine Exposure to Covid -19 Expected: 05/27/2020, TESTING) Virus Expires: 2020 Health Maintenance Due Date Last Done Comments DTaP,Tdap,and Td Vaccines (1 - 1991 Tdap) Depression Screening 1992 PAP SMEAR 2001 INFLUENZA VACCINE (#1) 2020 PNEUMOCOCCAL 0-64 YEARS COMBINED Aged Out No longer eligible based on SERIES patient's age to complete this topic documented as of this encounter Results Not on filedocumented in this encounter Visit Diagnoses Diagnosis Exposure to Covid-19 Virus - Primary documented in this encounter Additional Health Concerns Infection Onset Date Last Indicated Resolved Time COVID-19 Rule Out 05/27/2020 05/27/2020 documented as of this encounter documented as of this encounter
[2020-07-19] MEDS ORDERED: KETOROLAC 30 MG/ML INJ ONE (13:42)
--- NOTE | 2020-07-19 14:24 | RAD REPORT ---
EXAM DESCRIPTION: RAD - Ankle Right 3 View - 07/19/2020 2:09 pm CLINICAL HISTORY: Right ankle pain FINDINGS: No fracture or dislocation is seen.
--- NOTE | 2020-07-19 14:26 | RAD REPORT ---
EXAM DESCRIPTION: RAD - Foot Right 3 View - 07/19/2020 2:09 pm CLINICAL HISTORY: Right foot pain status post injury FINDINGS: No fracture or dislocation is seen
--- NOTE | 2020-07-19 14:40 | ER ---
Nurse's Notes [facility] Name: Marianna Phillips Age: 40 yrs Sex: Female : 1980 Arrival Date: 07/19/2020 Time: 13:16 Bed 15 Private MD: Diagnosis: Sprain of ankle-right;Sprain of foot-right Presentation: 07/19 13:21 Chief complaint: Patient states: was going down the stairs and twisted her left ankle. sv Coronavirus screen: Client denies travel out of the [place] in the last 14 days. Ebola Screen: No symptoms or risks identified at this time. Risk Assessment: Do you want to hurt yourself or someone else? Patient reports no desire to harm self or others. Onset of symptoms was July 19, 2020. 13:21 Method Of Arrival: Wheelchair sv 13:21 Acuity: YUNIOR 4 sv 13:22 Initial Sepsis Screen: Does the patient meet any 2 criteria? No. Patient's initial sv sepsis screen is negative. Does the patient have a suspected source of infection? No. Patient's initial sepsis screen is negative. Triage Assessment: 13:21 General: Appears in no apparent distress. comfortable, well developed, Behavior is sv calm, cooperative, appropriate for age. Pain: Complains of pain in right ankle. Neuro: Level of Consciousness is awake, alert, obeys commands, Oriented to person, place, time, situation. Respiratory: Respiratory effort is even, unlabored. Historical: - Allergies: 13:22 No Known Allergies; sv - PMHx: 13:22 CVA; Panic Attacks; sv - PSHx: 13:22 None; sv Vital Signs: 13:22 BP 102 / 73; Pulse 88; Resp 16; Temp 98.4(TE); Pulse Ox 99% on R/A; Weight 54.43 kg; sv Height 5 ft. 2 in. (157.48 cm); 13:22 Body Mass Index 21.95 (54.43 kg, 157.48 cm) sv ED Course: 13:16 Patient arrived in ED. mr 13:22 Triage completed. sv 13:22 Arm band placed on. sv 13:25 Paolo Gasca PA is PHCP. cp 13:25 Misty Weinstein MD is Attending Physician. cp 13:30 Joanne Horton, RN is Primary Nurse. ls4 14:08 XRAY Foot RIGHT 3 View In Process Unspecified. EDMS 14:08 XRAY Ankle RIGHT 3 view In Process Unspecified. EDMS Administered Medications: 13:48 Not Given (Other Intervention Used): TORadol 30 mg IM once ls4 13:48 Drug: TORadol 30 mg Route: IM; Site: right gluteus; ls4 14:10 Follow up: Response: No adverse reaction; Pain is decreased ls4 Outcome: 14:40 Discharge ordered by . rodger 15:27 Patient left the ED. ls4 Signatures: Dispatcher [employer] EDMS Ammy Abbott, RN Jeanne Hopper mr Paolo Gasca PA PA Joanne Lacey, RN RN ls4
--- NOTE | 2020-07-19 14:40 | EDPHYS ---
Physician Documentation [facility] Name: Marianna Phillips Age: 40 yrs Sex: Female : 1980 Arrival Date: 07/19/2020 Time: 13:16 Bed 15 Private MD: ED Physician Misty Weinstein HPI: 07/19 13:35 This 40 yrs old Black Female presents to ER via Wheelchair with complaints of Ankle cp Injury. 13:35 The patient presents with an injury, pain, that is acute. The complaints affect the cp right lateral ankle and lateral aspect of right foot. 13:35 Context: resulted from the patient falling, down stairs, the patient is not able to cp bear weight, the patient is able to ambulate, with moderate difficulty. Onset: The symptoms/episode began/occurred today. Associated signs and symptoms: Pertinent negatives calf tenderness, numbness. Historical: - Allergies: 13:22 No Known Allergies; sv - PMHx: 13:22 CVA; Panic Attacks; sv - PSHx: 13:22 None; sv ROS: 13:42 MS/extremity: Positive for pain, tenderness, of the lateral aspect of right foot and cp right lateral ankle, Negative for decreased range of motion, deformity. 13:42 Neck: Negative for pain with movement, pain at rest. cp 13:42 Cardiovascular: Negative for chest pain. 13:42 Respiratory: Negative for cough, shortness of breath. 13:42 Abdomen/GI: Negative for abdominal pain. 13:42 Back: Negative for pain at rest, pain with movement. 13:42 Neuro: Negative for numbness. 13:42 All other systems are negative. Exam: 13:45 Constitutional: The patient appears in no acute distress, alert, awake, well developed, cp well nourished. 13:45 Head/Face: Normocephalic, atraumatic. cp 13:45 Neck: C-spine: vertebral tenderness, is not appreciated, crepitus, is not appreciated, ROM/movement: is normal, is supple, without pain, no range of motions limitations. 13:45 Chest/axilla: Inspection: normal. 13:45 Cardiovascular: Rate: normal. 13:45 Respiratory: the patient does not display signs of respiratory distress, Respirations: normal, no use of accessory muscles, labored breathing, is not present. 13:45 Abdomen/GI: Exam negative for discomfort, distension, guarding, Inspection: abdomen appears normal. 13:45 Back: pain, is absent, ROM is normal. 13:45 Musculoskeletal/extremity: Extremities: grossly normal except: noted in the lateral aspect of right foot and right lateral ankle: pain, swelling, tenderness, Perfusion: the extremity is normally perfused throughout, Sensation intact. 13:45 Neuro: Orientation: to person, place \T\ time. Mentation: is normal, Motor: moves all fours, strength is normal. Vital Signs: 13:22 BP 102 / 73; Pulse 88; Resp 16; Temp 98.4(TE); Pulse Ox 99% on R/A; Weight 54.43 kg; sv Height 5 ft. 2 in. (157.48 cm); 13:22 Body Mass Index 21.95 (54.43 kg, 157.48 cm) sv Procedures: 15:25 Splinting: Splint applied to right ankle and right foot using walking boot. applied by cp nurse. Examined by me, post splint application: neurovascular intact, Patient tolerated well. 15:25 Crutch training provided to patient and/or family. Return demonstration given. cp MDM: 13:25 Patient medically screened. cp 14:40 Differential diagnosis: dislocation, closed fracture, dislocation. cp 14:40 Data reviewed: vital signs, nurses notes, radiologic studies, plain films. Counseling: cp I had a detailed discussion with the patient and/or guardian regarding: the historical points, exam findings, and any diagnostic results supporting the discharge/admit diagnosis, radiology results, to return to the emergency department if symptoms worsen or persist or if there are any questions or concerns that arise at home. ED course: VSS. Xrays negative for fracture. Will discharge to home for continued monitoring. 07/19 13:28 Order name: XRAY Foot RIGHT 3 View 07/19 13:28 Order name: XRAY Ankle RIGHT 3 view 07/19 14:39 Order name: Crutches 07/19 14:39 Order name: Walking boot cp Administered Medications: 13:48 Not Given (Other Intervention Used): TORadol 30 mg IM once ls4 13:48 Drug: TORadol 30 mg Route: IM; Site: right gluteus; ls4 14:10 Follow up: Response: No adverse reaction; Pain is decreased ls4 Disposition: 15:30 Chart complete. cp Disposition: 07/19/20 14:40 Discharged to Home. Impression: Sprain of ankle - right, Sprain of foot - right. - Condition is Stable. - Discharge Instructions: Foot Sprain, Ankle Sprain, [id number]. - Prescriptions for Ibuprofen 800 mg Oral Tablet - take 1 tablet by ORAL route every 8 hours As needed take with food; 30 tablet. - Medication Reconciliation Form, Thank You Letter, Antibiotic Education, Prescription Opioid Use, Work release form form. - Follow up: Private Physician; When: 1 week; Reason: Recheck today's complaints. - Problem is new. - Symptoms have improved. Signatures: Dispatcher [employer] Ammy Corbin RN RN Paolo Olsen PA PA cp Stewart, Lisa, RN RN ls4 Corrections: (The following items were deleted from the chart) 15:27 14:40 07/19/2020 14:40 Discharged to Home. Impression: Sprain of ankle - right; Sprain ls4 of foot - right. Condition is Stable. Forms are Medication Reconciliation Form, Thank You Letter, Antibiotic Education, Prescription Opioid Use. Follow up: Private Physician; When: 1 week; Reason: Recheck today's complaints. Problem is new. Symptoms have improved. cp 07/20 07:54 07/19 13:45 Musculoskeletal/extremity: Extremities: grossly normal except: noted in the cp lateral aspect of left foot and left lateral ankle: pain, swelling, tenderness, Perfusion: the extremity is normally perfused throughout, Sensation intact. cp 07/20 07:55 07/19 13:42 MS/extremity: Positive for pain, tenderness, of the lateral aspect of left cp foot and left lateral ankle, Negative for decreased range of motion, deformity, cp 07/20 07:56 07/19 13:35 The complaints affect the left lateral ankle and lateral aspect of left cp foot, cp 07/20 07:57 07:53 Splinting: cp cp
[2020-07-22 18:48] VITALS: BP 102/73; TEMP 98.4; O2SAT 99
== END 2020-07-19 15:27 | disposition home or self-care (01) ==
LOC: ER 13:11
DX: S93.401A Sprain of unspecified ligament of right ankle, initial encounter (principal); S93.601A Unspecified sprain of right foot, initial encounter; W10.9XXA Fall (on) (from) unspecified stairs and steps, initial encounter; Y93.9 Activity, unspecified; Y92.9 Unspecified place or not applicable
CPT/HCPCS: 96372; 99283

== ENCOUNTER 2020-12-31 14:13 | Emergency (ER) | payer OTHER ==
[2020-12-31] MEDS ORDERED: LIDOCAINE VISCOUS 2% SOLN 15 ML UDC ONE (15:08)
[2020-12-31] MEDS ORDERED: MAGNES/ALUMIN/SIMET 30ML UCUP ONE (15:08)
[2020-12-31] MEDS ORDERED: IBUPROFEN 200 MG TAB PO ONE (15:08)
--- NOTE | 2020-12-31 15:42 | ER ---
Nurse's Notes [facility] Name: Marianna Phillips Age: 40 yrs Sex: Female : 1980 Arrival Date: 12/31/2020 Time: 14:14 Bed 26 Private MD: Diagnosis: Acute lymphadenitis Presentation: 12/31 14:44 Chief complaint: Patient states: hurts inside right side of mouth and up into her right iw ear, hurts when she swallows, feels like her tonsils. Coronavirus screen: At this time, the client does not indicate any symptoms associated with coronavirus-19. Ebola Screen: Patient negative for fever greater than or equal to 101.5 degrees Fahrenheit, and additional compatible Ebola Virus Disease symptoms Patient denies exposure to infectious person. Patient denies travel to an Ebola-affected area in the 21 days before illness onset. No symptoms or risks identified at this time. Initial Sepsis Screen: Does the patient meet any 2 criteria? No. Patient's initial sepsis screen is negative. Does the patient have a suspected source of infection? No. Patient's initial sepsis screen is negative. Risk Assessment: Do you want to hurt yourself or someone else? Patient reports no desire to harm self or others. Onset of symptoms was December 30, 2020. 14:44 Method Of Arrival: Ambulatory iw 14:44 Acuity: YUNIOR 4 iw Historical: - Allergies: 14:46 No Known Allergies; iw - Home Meds: 14:46 None [Active]; iw - PMHx: 14:46 CVA; Panic Attacks; iw - PSHx: 14:46 None; iw - Immunization history:: Adult Immunizations unknown. - Social history:: Smoking status: unknown. Screenin:34 Abuse screen: Denies threats or abuse. Denies injuries from another. Nutritional iw screening: No deficits noted. Tuberculosis screening: No symptoms or risk factors identified. Fall Risk None identified. Assessment: 15:00 General: Appears in no apparent distress. Behavior is calm, cooperative. Pain: iw Complains of pain in throat, right ear. Neuro: Level of Consciousness is awake, alert, obeys commands, Oriented to person, place, time, situation, Moves all extremities. Full function. Cardiovascular: Patient's skin is warm and dry. Respiratory: Respiratory effort is even, unlabored, Respiratory pattern is. EENT: Throat is clear bilaterally. Derm: Skin is intact, is healthy with good turgor. Musculoskeletal: Range of motion: intact in all extremities. 15:44 General: Appears in no apparent distress. uncomfortable, Behavior is calm, cooperative, zb appropriate for age. Pain: Complains of pain in right side of throat and right ear pain Pain does not radiate. Quality of pain is described as aching, tender, Pain began 1 day ago. Is continuous. Neuro: Level of Consciousness is awake, alert, obeys commands, Oriented to person, place, time, situation, Moves all extremities. Full function. Cardiovascular: Patient's skin is warm and dry. Respiratory: Airway is patent Respiratory effort is even, unlabored, Respiratory pattern is regular, symmetrical. GI: Abdomen is flat, non-distended. : No signs and/or symptoms were reported regarding the genitourinary system. EENT: Throat is clear bilaterally right cervical adenopathy and tenderness noted. . Derm: Skin is intact, is healthy with good turgor, Skin is dry, Skin is normal, Skin temperature is warm. Musculoskeletal: Range of motion: intact in all extremities. Vital Signs: 14:44 BP 107 / 86; Pulse 78; Resp 16; Temp 97.2; Pulse Ox 99% on R/A; Weight 51.71 kg; Height iw 5 ft. 2 in. (157.48 cm); 14:44 Body Mass Index 20.85 (51.71 kg, 157.48 cm) iw ED Course: 14:14 Patient arrived in ED. ag5 14:36 Gayle Ayala FNP-C is [facility]. kb 14:36 Renan Ribera MD is Attending Physician. kb 14:46 Triage completed. iw 14:46 Arm band placed on. iw 14:49 Rajni Downing, RN is Primary Nurse. iw 15:34 No provider procedures requiring assistance completed. Patient did not have IV access iw during this emergency room visit. 15:49 Patient has correct armband on for positive identification. zb Administered Medications: 14:57 Drug: GI Cocktail without - (Maalox Suspension 30 ml, Lidocaine Liquid 2 % 15 iw ml) Route: PO; 15:34 Follow up: Response: No adverse reaction iw 14:57 Drug: Ibuprofen 600 mg Route: PO; iw 15:34 Follow up: Response: No adverse reaction iw Outcome: 15:41 Discharge ordered by MD. goins 15:48 Discharged to home ambulatory. zb 15:48 Condition: stable 15:48 Discharge instructions given to patient, Instructed on discharge instructions, follow up and referral plans. Demonstrated understanding of instructions, follow-up care. 15:49 Patient left the ED. zb Signatures: Gayle Ayala, VENEER TAPING MACHINE OPERATOR-C VENEER TAPING MACHINE OPERATOR-Ckb Rajni Downing RN RN iw Gaskin, Ajare ag5 Fidelina Henderson RN RN zb Corrections: (The following items were deleted from the chart) 14:49 14:44 BP 107 / 86; Resp 16bpm; Temp 97.2F; 51.71 kg; Height 5 ft. 2 in.; BMI: 20.8; iw iw
--- NOTE | 2020-12-31 15:42 | EDPHYS ---
Physician Documentation [facility] Name: Marianna Phillips Age: 40 yrs Sex: Female : 1980 Arrival Date: 12/31/2020 Time: 14:14 Bed 26 Private MD: ED Physician Renan Ribera HPI: 12/31 16:25 This 40 yrs old Black Female presents to ER via Ambulatory with complaints of Ear Pain, kb Sore Throat. 16:25 The patient presents with sore throat. The patient describes throat pain as constant. kb Severity of symptoms: At their worst the symptoms were moderate, in the emergency department the symptoms are unchanged. The patient has not recently seen a physician. 16:26 Onset: The symptoms/episode began/occurred yesterday. Modifying factors: The symptoms kb are alleviated by nothing, the symptoms are aggravated by swallowing, Patient's oral intake status: good. Associated signs and symptoms: Pertinent positives: earache, Sore throat Pertinent negatives fever, flu-like symptoms. The patient has not experienced similar symptoms in the past. Historical: - Allergies: 14:46 No Known Allergies; iw - Home Meds: 14:46 None [Active]; iw - PMHx: 14:46 CVA; Panic Attacks; iw - PSHx: 14:46 None; iw - Immunization history:: Adult Immunizations unknown. - Social history:: Smoking status: unknown. ROS: 16:25 Constitutional: Negative for fever, chills, and weight loss, Cardiovascular: Negative kb for chest pain, palpitations, and edema, Respiratory: Negative for shortness of breath, cough, wheezing, and pleuritic chest pain, Abdomen/GI: Negative for abdominal pain, nausea, vomiting, diarrhea, and constipation, MS/Extremity: Negative for injury and deformity, Skin: Negative for injury, rash, and discoloration, Neuro: Negative for headache, weakness, numbness, tingling, and seizure. 16:25 ENT: Positive for ear pain, sore throat. Exam: 16:24 Constitutional: This is a well developed, well nourished patient who is awake, alert, kb and in no acute distress. Head/Face: Normocephalic, atraumatic. Chest/axilla: Normal chest wall appearance and motion. Nontender with no deformity. No lesions are appreciated. Cardiovascular: Regular rate and rhythm with a normal S1 and S2. No gallops, murmurs, or rubs. Normal PMI, no JVD. No pulse deficits. Respiratory: Lungs have equal breath sounds bilaterally, clear to auscultation and percussion. No rales, rhonchi or wheezes noted. No increased work of breathing, no retractions or nasal flaring. Abdomen/GI: Soft, non-tender, with normal bowel sounds. No distension or tympany. No guarding or rebound. No evidence of tenderness throughout. Skin: Warm, dry with normal turgor. Normal color with no rashes, no lesions, and no evidence of cellulitis. MS/ Extremity: Pulses equal, no cyanosis. Neurovascular intact. Full, normal range of motion. Neuro: Awake and alert, GCS 15, oriented to person, place, time, and situation. Cranial nerves II-XII grossly intact. Motor strength 5/5 in all extremities. Sensory grossly intact. Cerebellar exam normal. Normal gait. 16:24 ENT: External ear(s): are unremarkable, Ear canal(s): are normal, TM's: fluid levels, on the right, Posterior pharynx: is normal. 16:24 Neck: Lymph nodes: lymphadenopathy is appreciated, anterior cervical nodes. Vital Signs: 14:44 BP 107 / 86; Pulse 78; Resp 16; Temp 97.2; Pulse Ox 99% on R/A; Weight 51.71 kg; Height iw 5 ft. 2 in. (157.48 cm); 14:44 Body Mass Index 20.85 (51.71 kg, 157.48 cm) iw MDM: 14:47 Patient medically screened. kb 16:24 Data reviewed: vital signs, nurses notes. Data interpreted: Pulse oximetry: on room air kb is 99 %. Interpretation: normal. Counseling: I had a detailed discussion with the patient and/or guardian regarding: the historical points, exam findings, and any diagnostic results supporting the discharge/admit diagnosis, lab results, the need for outpatient follow up, a family practitioner, to return to the emergency department if symptoms worsen or persist or if there are any questions or concerns that arise at home. 12/31 14:48 Order name: Strep; Complete Time: 15:40 kb 12/31 15:45 Order name: Throat Culture EDMS Administered Medications: 14:57 Drug: GI Cocktail without - (Maalox Suspension 30 ml, Lidocaine Liquid 2 % 15 iw ml) Route: PO; 15:34 Follow up: Response: No adverse reaction iw 14:57 Drug: Ibuprofen 600 mg Route: PO; iw 15:34 Follow up: Response: No adverse reaction iw Disposition: 16:56 Co-signature as Attending Physician, Renan Ribera MD I agree with the assessment and kdr plan of care. Disposition: 12/31/20 15:41 Discharged to Home. Impression: Acute lymphadenitis. - Condition is Stable. - Discharge Instructions: Lymphadenopathy. - Medication Reconciliation Form, Thank You Letter, Antibiotic Education, Prescription Opioid Use form. - Follow up: Emergency Department; When: As needed; Reason: Worsening of condition. Follow up: Private Physician; When: 2 - 3 days; Reason: Recheck today's complaints, Continuance of care, Re-evaluation by your physician. Signatures: Dispatcher [employer] EDAL Gayle Ayala, SAP GATHERER-C SAP GATHERER-Radhamesb Renan Ribera MD MD [facility] Rajni Downing RN RN iw Brown, [place], RN RN zb Corrections: (The following items were deleted from the chart) 15:49 15:41 12/31/2020 15:41 Discharged to Home. Impression: Acute lymphadenitis. Condition zb is Stable. Forms are Medication Reconciliation Form, Thank You Letter, Antibiotic Education, Prescription Opioid Use. Follow up: Emergency Department; When: As needed; Reason: Worsening of condition. Follow up: Private Physician; When: 2 - 3 days; Reason: Recheck today's complaints, Continuance of care, Re-evaluation by your physician. kb
[2020-12-31 15:53] VITALS: BP 107/86; TEMP 97.2; O2SAT 99
== END 2020-12-31 15:49 | disposition home or self-care (01) ==
LOC: ER 14:13
DX: L04.9 Acute lymphadenitis, unspecified (principal)
CPT/HCPCS: 87070; 87081; 99283

== ENCOUNTER 2021-03-21 14:47 | Emergency (ER) | payer OTHER ==
--- OUTSIDE RECORDS SUMMARY | 2021-03-21 14:50 | XMS REPORT | Continuity of Care Document ---
:1980 Author Organization [facility] t Address 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 Family History Family Member Diagnosis Comments Start Date Stop Date Source Natural mother Diabetes [facility] [place] Family member Lupus [facility] [place] Social History Social Habit Start Date Stop Date Quantity Comments Source Sex Assigned At [facility] Smoking Status Start Date Stop Date Source Never smoker [facility] Medications This patient has no known medications. Procedures This patient has no known procedures. Encounters Start End Encounter Admission Attending Care Care Encounter Source Date/Time Date/Time Type Type Clinicians Facility Department ID 2020-05-27 2020-05-27 Laboratory Lab, [facility] [id number] 16:17:52 16:37:52 Only Fam Pob I [facility] [id number] [place] [id number] Cb [phone] nal [address] One Results Test Description Test Time Test Comments Results Result Sourc e Comments BREAST ULTRASOUND 2019-03-06 - DIAG MAMM BILATERAL BILATERAL 11:11:26 ALAN CAD DIGITALBILATERAL FIRST EVER DIGITAL DIAGNOSTIC MAMMOGRAM 3D/2D WITH CAD: 03/06/2019Digital breast tomosynthesis was performed in addition to routine CC and MLO views. Current mammographic images were evaluated by either a Adomo M-Vu or a Sigma Forceer CAD (computer aided detection system). No prior [...] - 03/07/2019 12:50:12Imaging Technologist: Nia GOMES, [facility]-FWletter sent: BIRADS 1-2 Combo FU Letter Mammogram BI-RADS: 0 Indeterminate Ultrasound BI-RADS: 2 Benign DIAG MAMM 2019-03-06 - DIAG MAMM BILATERAL BILATERAL ALAN CAD 11:11:26 ALAN CAD DIGITAL DIGITALBILATERAL FIRST EVER DIGITAL DIAGNOSTIC MAMMOGRAM 3D/2D WITH CAD: 03/06/2019Digital breast tomosynthesis was performed in addition to routine CC and MLO views. Current mammographic images were evaluated by either a Adomo M-Vu or a InRiver ImageChecker CAD (computer aided detection system). No [...] - 03/07/2019 12:50:12Imaging Technologist: Nia GOMES, [facility]-FWletter sent: BIRADS 1-2 Combo FU [...] screen for Lupus code = 2406) Anticoagulant [id number] (BEAKER) (test Angel Hamilton M.D. (electonic code = 2610) signature) DRVV SCREEN RATIO (BEAKER) (test 0.59 <1.20 code = 2707) Effective 03/25/2014: Test Method ChangeDRVV Screen Ratio, DRVV 1/1 Screen Ratio, DRVV Confirm Ratio,DRVV Normalized Ratio Reference Range: <1.2Protime Reference Range ChangeNew: 11.7-14.7 Previous: 9.8-12.0PTT Reference Range ChangeNew: 22.5-36.0 Previous: 25.8-34.5HEXAGONAL [id number] 12:56:00 Test Item Value Reference Range Interpretation Comments HEXAGONAL PHOSPHOLIPID (BEAKER) Negative (test code = 1790) BASIC METABOLIC [id number] 05:51:00 Test Item Value Reference Range Interpretation [...] PATIEN TS. CBC W/PLT COUNT & AUTO [id number] 05:29:00 Test Item Value Reference Range Interpretation [...] PERCENT (BEAKER) (test code = 2801) SEDIMENTATION [id number] 10:56:00 Test Item Value Reference Range Interpretation Comments SEDIMENTATION RATE, ERYTHROCYTE 21 mm/HR 0-20 H (BEAKER) (test code = 766) CBC W/PLT COUNT & AUTO [id number] 09:30:00 Test Item Value Reference Range Interpretation [...] COUNTED (BEAKER) (test code = 1351) POCT-GLUCOSE [id number] 06:41:00 Test Item Value Reference Range Interpretation Comments POC-GLUCOSE METER 103 mg/dL 70-110 TESTED AT [place] [address] ([facility]) (test code = [facility] 1538) [address] BASIC METABOLIC [id number] 05:21:00 Test Item Value Reference Range Interpretation Comments SODIUM (BEAKER) 140 meq/L 136-145 (test code = 381) POTASSIUM (BEAKER) 4.0 meq/L 3.5-5.1 (test code = 379) CHLORIDE (BEAKER) 108 meq/L 98-107 H (test code = 382) CO2 (BEAKER) (test 23 meq/L 22-29 code = 355) BLOOD UREA NITROGEN 6 mg/dL 7-21 L (BEAKER) (test code = 354) CREATININE (BEAKER) 0.96 mg/dL 0.57-1.25 (test code = 358) GLUCOSE RANDOM 92 mg/dL 70-105 ([facility]) (test code = 652) CALCIUM (BEAKER) 9.3 mg/dL 8.4-10.2 (test code = 697) EGFR ([facility]) (test 79 mL/min/1.73 ESTIMA JAVON GFR IS code = 1092) sq m NOT ACCURATE CREATININE CLEARANCE IN PREDICTING GLOMERULAR FILTRATION RATE . ESTIMATED GFR I S NOT APPLICABLE FOR DIALYSIS PATIEN TS. POCT-GLUCOSE [id number] 23:38:00 Test Item Value Reference Range Interpretation Comments POC-GLUCOSE METER 84 mg/dL 70-110 TESTED AT [place] [address] ([facility]) (test code = [facility] [address] 1538) POCT-GLUCOSE [id number] 16:02:00 Test Item Value Reference Range Interpretation Comments POC-GLUCOSE METER 80 mg/dL 70-110 TESTED AT [place] [address] ([facility]) (test code = [facility] [address] 1538) ANTI-NUCLEAR ANTIBODY (MEI)2017-07-05 13:36:00 Test Item Value Reference Range Interpretation Comments ANTI-NUCLEAR ANTIBODY (MEI) ([facility]) Negative Negative (test code = 418) CARDIOLIPIN ANTIBODIES, IGG AND [id number] 13:10:00 Test Item Value Reference Range Interpretation Comments ANTICARDIOLIPIN IGG ANTIBODY (BEAKER) < GPL (test code = 712) ANTICARDIOLIPIN IGM ANTIBODY (BEAKER) 0.2 MPL (test code = 713) Anticardiolipin IgG Result Interpretation:NEG: <20 GPL; U/mlPOS: >/=20 GPL; U/mlAnticardiolipin IgM Result Interpretation:NEG: <20 MPL; U/mlPOS: >/=20 MPL; U/mlPOCT-GLUCOSE [id number] 12:20:00 Test Item Value Reference Range Interpretation Comments POC-GLUCOSE METER 76 mg/dL 70-110 TESTED AT [place] [address] ([facility]) (test code = [facility] [address] 1538) [id number] 11:07:00 Test Item Value Reference Range Interpretation Comments RPR SCREEN ([facility]) (test code = Nonreactive Nonreactive 420) RHEUMATOID FACTOR AB, REFLEX TO [id number] 11:03:00 Test Item Value Reference Range Interpretation Comments RHEUMATOID FACTOR ([facility]) (test Negative code = 573) HEMOGLOBIN [id number] 08:35:00 Test Item Value Reference Range Interpretation Comments HEMOGLOBIN A1C 5.0 % 4.3-6.1 POSSIBLE HEMO GLOBIN S ([facility]) (test code = VARIAN T NOTED IN 368) HEMOGLOBIN A1C CHROMATOGRAPH. SUGGEST HEMOGLOBIN ELEC TROPHORESIS IF CLINICALLY I NDICATED. FastingPOCT-GLUCOSE [id number] 08:15:00 Test Item Value Reference Range Interpretation Comments POC-GLUCOSE METER 93 mg/dL 70-110 TESTED AT [place] [address] ([facility]) (test code = [facility] [address] 1538) TSH/FREE T4 IF [id number] 06:26:00 Test Item Value Reference Range Interpretation Comments THYROID STIMULATING HORMONE 3.65 uIU/mL 0.35-4.94 ([facility]) (test code = 772) VITAMIN B12 AND [id number] 06:26:00 Test Item Value Reference Range Interpretation Comments VITAMIN B12 ([facility]) (test code = 726 pg/mL 265-108 918) FOLATE ([facility]) (test code = 362) 12.3 ng/mL >=7.0 Effective 10/07/2014: Folate Reference Range ChangeNew: >=7.0 Previous: >=5.4LIPID [id number] 05:56:00 Test Item Value Reference Range Interpretation Comments TRIGLYCERIDES (BEAKER) (test code = 65 mg/dL 540) CHOLESTEROL [...] High 160-189 Very High >=190 FastingBASIC METABOLIC [id number] 05:56:00 Test Item Value Reference Range Interpretation [...] APPLICABLE FOR DIALYSIS PATIEN TS. FastingHEPATIC FUNCTION [id number] 05:56:00 Test Item Value Reference Range Interpretation [...] 6-55 347) FastingCREATINE KINASE (CK), TOTAL AND [id number] 05:56:00 Test Item Value Reference Range Interpretation Comments CREATINE KINASE TOTAL (BEAKER) 100 U/L 29-200 (test code = 380) CREATINE KINASE-MB (BEAKER) (test 0.4 ng/mL 0.0-6.6 code = 750) CREATINE KINASE-MB INDEX (BEAKER) 0.4 % (test code = 395) Effective 10/07/2014: CK-MB Reference Range ChangeNew: 0.0-6.6 Previous: 0.0-4.9CK-MB Reference Range:<6.7 Normal6.7-10.0 Borderline>10.0 AbnormalFastingFastingTROPONIN [id number] 05:54:00 Test Item Value Reference Range Interpretation [...] and persistent tachyarrhythmia.FastingCBC W/PLT COUNT & AUTO [id number] 05:44:00 Test Item Value Reference Range Interpretation [...] PERCENT (BEAKER) (test code = 2801) PROTHROMBIN [id number] 05:40:00 Test Item Value Reference Range Interpretation Comments PROTIME (BEAKER) (test code = 14.3 seconds 11.7-14.7 759) INR (BEAKER) (test code = 370) 1.1 <=5.9 RECOMMENDED COUMADIN/WARFARIN INR THERAPY RANGESSTANDARD DOSE: 2.0 - 3.0 Includes: PROPHYLAXIS forvenous thrombosis, systemic embolization; TREATMENT for venous thrombosis and/or pulmonary embolus.HIGH RISK: Target INR is 2.5-3.5 for patients with mechanical heart valves.POCT-GLUCOSE [id number] 22:44:00 Test Item Value Reference Range Interpretation Comments POC-GLUCOSE METER 82 mg/dL 70-110 TESTED AT [facility] 6720 (BEAKER) (test code = [place] [address] 1538) RAPID DRUG SCREEN, [id number] 20:39:00 Test Item Value Reference Range Interpretation [...] situations. Chain of custody not maintained. Some mplt-ils-eylewlc medications, as well as adulterants, may cause inaccurate results. Clinical correlation should be applied. A more comprehensive drug screen or confirmation of a detected drug may be performed upon request. URINALYSIS W/ [id number] 18:36:00 Test Item Value Reference Range Interpretation [...] 516) SOURCE(BEAKER) (test code = Urine, Voided 9682)
[2021-03-21] MEDS ORDERED: ONDANSETRON 4 MG/2 ML VIAL ONE (16:51)
[2021-03-21] MEDS ORDERED: MORPHINE 4 MG/ML SYR ONE (16:51)
[2021-03-21] MEDS ORDERED: NA CHLORIDE 0.9% 1,000 ML ONE (16:52)
[2021-03-21 16:58] LABS: Absolute Lymphocytes (CBC) 0.6 K/uL (0.7-4.9); Basophils % 0.2 % (0-1.3); Hematocrit 38.1 % (36.0-45.0); Lymphocytes % 7.6 % (15.3-44.8); MPV 8.5 fL (7.6-11.3); RBC Red Blood Cell Count 4.23 M/uL (3.86-4.86)
--- NOTE | 2021-03-21 17:09 | RAD REPORT ---
EXAM DESCRIPTION: CTAbdomen Pelvis W Contrast - 03/21/2021 4:49 pm CLINICAL HISTORY: Abdominal pain. ABD PAIN COMPARISON: No comparisons TECHNIQUE: Biphasic CT imaging of the abdomen and pelvis was performed with 100 ml non-ionic IV cont rast. All CT scans are performed using dose optimization technique as appropriate and may include automated exposure control or mA/KV adjustment according to patient size. FINDINGS: The lung bases are clear. The liver, spleen, pancreas, adrenal glands and kidneys are within normal limits. No bowel obstruction, free air, intra-abdominal free fluid or abscess. The appendix is normal. No e vidence of significant lymphadenopathy. No suspicious bony findings. Mild free fluid is seen in the pelvis which may indicate recent cyst rupture or pelvic infection. IMPRESSION: Mild free fluid in the pelvis may be related to recent cyst rupture or pelvic infection. Advise clinical physical exam correlation.
[2021-03-21 17:12] LABS: Bilirubin Direct 0.2 mg/dL (0-0.2); Bilirubin Total 0.7 mg/dL (0.2-1.0); Potassium 4.2 mmol/L (3.5-5.1); Protein, Total 8.3 g/dL (6.4-8.2)
[2021-03-21 17:27] LABS: Urine Blood Negative (Negative); Urine Glucose Negative (Negative); Urine Protein Negative (Negative); Urine Specific Gravity <=1.005 (1.005-1.030); Urine pH 5.5 (5.0-7.0)
[2021-03-21] MEDS ORDERED: KETOROLAC 30 MG/ML INJ ONE (17:50)
--- NOTE | 2021-03-21 17:56 | EDPHYS ---
Physician Documentation [facility] Name: Marianna Phillips Age: 40 yrs Sex: Female : 1980 Arrival Date: 03/21/2021 Time: 14:47 Bed 25 Private MD: ED Physician Misty Weinstein HPI: 03/21 17:24 This 40 yrs old Black Female presents to ER via Wheelchair with complaints of Abdominal kb Pain. 17:24 The patient presents with abdominal pain. The symptoms do not radiate. The patient has kb not recently seen a physician. 17:25 Onset: The symptoms/episode began/occurred this morning. Associated signs and symptoms: kb none. The symptoms are described as sharp. Modifying factors: The symptoms are alleviated by nothing, the symptoms are aggravated by movement, pressure. Severity of pain: At its worst the pain was moderate in the emergency department the pain is unchanged. The patient has not experienced similar symptoms in the past. 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 - Social history:: Smoking status: Patient denies any tobacco usage or history of. ROS: 17:23 Constitutional: Negative for fever, chills, and weight loss, Cardiovascular: Negative kb for chest pain, palpitations, and edema, Respiratory: Negative for shortness of breath, cough, wheezing, and pleuritic chest pain, MS/Extremity: Negative for injury and deformity, Skin: Negative for injury, rash, and discoloration, Neuro: Negative for headache, weakness, numbness, tingling, and seizure. 17:23 Abdomen/GI: Positive for abdominal pain, Negative for nausea, vomiting, and diarrhea. Exam: 17:24 Constitutional: This is a well developed, well nourished patient who is awake, alert, kb and in no acute distress. Head/Face: Normocephalic, atraumatic. Cardiovascular: Regular rate and rhythm with a normal S1 and S2. No gallops, murmurs, or rubs. No pulse deficits. Respiratory: Respirations even and unlabored. No increased work of breathing, no retractions or nasal flaring. Back: No spinal tenderness. No costovertebral tenderness. Full range of motion. Skin: Warm, dry with normal turgor. Normal color. MS/ Extremity: Pulses equal, no cyanosis. Neurovascular intact. Full, normal range of motion. Neuro: Awake and alert, GCS 15, oriented to person, place, time, and situation. Moves all extremities. Normal gait. 17:24 Abdomen/GI: Inspection: abdomen appears normal, Bowel sounds: normal, in all quadrants, Palpation: soft, in all quadrants, moderate abdominal tenderness, in all quadrants. Vital Signs: 15:19 BP 124 / 90; Pulse 84; Resp 16 S; Temp 97(TE); Pulse Ox 97% on R/A; Weight 54.79 kg ca1 (R); Height 5 ft. 2 in. (157.48 cm) (R); Pain 10/10; 16:13 BP 115 / 86; Pulse 79; Resp 20 S; Temp 97.5(TE); Pulse Ox 100% on R/A; aa5 15:19 Body Mass Index 22.09 (54.79 kg, 157.48 cm) ca1 MDM: 15:47 Patient medically screened. kb 17:23 Data reviewed: vital signs, nurses notes. Data interpreted: Pulse oximetry: on room air kb is 100 %. Interpretation: normal. Counseling: I had a detailed discussion with the patient and/or guardian regarding: the historical points, exam findings, and any diagnostic results supporting the discharge/admit diagnosis, lab results, radiology results, the need for outpatient follow up, an OB/Gyne specialist, to return to the emergency department if symptoms worsen or persist or if there are any questions or concerns that arise at home. 03/21 16:08 Order name: Basic Metabolic Panel kb 03/21 16:08 Order name: CBC with Diff kb 03/21 16:08 Order name: Hepatic Function; Complete Time: 17:16 kb 03/21 16:08 Order name: Lipase; Complete Time: 17:16 kb 03/21 16:08 Order name: Basic Metabolic Panel; Complete Time: 17:16 EDMS 03/21 16:08 Order name: CBC with Automated Diff EDMS 03/21 16:08 Order name: IV Saline Lock; Complete Time: 16:52 kb 03/21 16:08 Order name: CT Abd/Pelvis - IV Contrast Only; Complete Time: 17:16 kb 03/21 17:27 Order name: Urine Dipstick-Ancillary; Complete Time: 17:42 EDMI 03/21 18:45 Order name: CREATININE WHOLE BLOOD [facility] 03/21 16:08 Order name: Labs collected and sent; Complete Time: 16:52 kb 03/21 17:30 Order name: Urine Dipstick-Ancillary (obtain specimen): VO received at 1720; Complete aa5 Time: 17:31 Administered Medications: 16:36 Drug: morphine 4 mg Route: IVP; Site: right antecubital; fm2 17:20 Follow up: Response: No adverse reaction aa5 16:37 Drug: NS 0.9% 1000 ml Route: IV; Rate: 1000 ml; Site: right antecubital; fm2 17:20 Follow up: IV Status: Completed infusion; IV Intake: 1000ml aa5 16:39 Drug: Zofran (Ondansetron) 4 mg Route: IVP; Site: right antecubital; fm2 17:20 Follow up: Response: No adverse reaction aa5 17:36 Drug: TORadol - (ketorolac) 15 mg Route: IVP; Site: right antecubital; fm2 Disposition: 03/21/21 17:56 Discharged to Home. Impression: Lower abdominal pain, unspecified. - Condition is Stable. - Discharge Instructions: Abdominal Pain, Adult, Lvxl-zm-Pxxo, Ovarian Cyst, Lqhi-di-Jbop. - Prescriptions for Zofran 4 mg Oral Tablet - take 1 tablet by ORAL route every 6 hours As needed; 20 tablet. Diclofenac Sodium 75 mg Oral Tablet Sustained Release - take 1 tablet by ORAL route 2 times per day; 30 tablet. - Medication Reconciliation Form, Thank You Letter, Antibiotic Education, Prescription Opioid Use, Work release form form. - Follow up: Emergency Department; When: As needed; Reason: Worsening of condition. Follow up: Private Physician; When: 2 - 3 days; Reason: Recheck today's complaints, Continuance of care, Re-evaluation by your physician. Addendum: 03/24/2021 20:23 Co-signature as Attending Physician, Misty otero a2 Signatures: Dispatcher [employer] EDGayle Rush, CAPPING MACHINE OPERATOR-C CAPPING MACHINE OPERATOR-CkCatie Acevedo, RN RN aa5 Misty Weinstein MD MD ma2 Leila Bland Frofel 2 Brea Leonardo, RN RN ca1 Corrections: (The following items were deleted from the chart) 03/21 18:45 17:56 03/21/2021 17:56 Discharged to Home. Impression: Lower abdominal pain, eb unspecified. Condition is Stable. Forms are Medication Reconciliation Form, Thank You Letter, Antibiotic Education, Prescription Opioid Use. Follow up: Emergency Department; When: As needed; Reason: Worsening of condition. Follow up: Private Physician; When: 2 - 3 days; Reason: Recheck today's complaints, Continuance of care, Re-evaluation by your physician. kb
--- NOTE | 2021-03-21 17:56 | ER ---
Nurse's Notes [facility] Name: Marianna Phillips Age: 40 yrs Sex: Female : 1980 Arrival Date: 03/21/2021 Time: 14:47 Bed 25 Private MD: Diagnosis: Lower abdominal pain, unspecified Presentation: 03/21 15:19 Chief complaint: Patient states: upper abdominal pain, epigastric pain, N/V/D since ca1 this morning. Coronavirus screen: Client denies travel out of the [place] in the last 14 days. diarrhea, nausea, vomiting. Ebola Screen: Patient negative for fever greater than or equal to 101.5 degrees Fahrenheit, and additional compatible Ebola Virus Disease symptoms Patient denies exposure to infectious person. Patient denies travel to an Ebola-affected area in the 21 days before illness onset. No symptoms or risks identified at this time. Initial Sepsis Screen: Does the patient meet any 2 criteria? No. Patient's initial sepsis screen is negative. Does the patient have a suspected source of infection? No. Patient's initial sepsis screen is negative. Risk Assessment: Do you want to hurt yourself or someone else? Patient reports no desire to harm self or others. Onset of symptoms was March 21, 2021. 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 - Social history:: Smoking status: Patient denies any tobacco usage or history of. Screenin:55 Abuse screen: Denies threats or abuse. Nutritional screening: No deficits noted. aa5 Tuberculosis screening: No symptoms or risk factors identified. Fall Risk None identified. Assessment: 15:55 General: Appears uncomfortable, Behavior is calm, cooperative. Pain: Complains of pain aa5 in epigastric area Pain does not radiate. Pain currently is 10 out of 10 on a pain scale. Neuro: Level of Consciousness is awake, alert, obeys commands, Oriented to person, place, time, situation. Cardiovascular: Patient's skin is warm and dry. Respiratory: Airway is patent Respiratory effort is even, unlabored, Respiratory pattern is regular, symmetrical. GI: Abdomen is flat, non-distended, Bowel sounds present X 4 quads. Abd is soft and non tender X 4 quads. Reports diarrhea, nausea, vomiting. : No signs and/or symptoms were reported regarding the genitourinary system. EENT: No signs and/or symptoms were reported regarding the EENT system. Derm: Skin is dry, Skin is normal, Skin temperature is warm. Musculoskeletal: Range of motion: intact in all extremities. 17:20 Reassessment: Pt reports nausea has improved but pain persists, TICKET DISPATCHER was notified. . aa5 Neuro: Level of Consciousness is awake, alert, obeys commands, Oriented to person, place, time, situation. Respiratory: Airway is patent Respiratory effort is even, unlabored, Respiratory pattern is regular, symmetrical. Derm: Skin is dry, Skin is normal, Skin temperature is warm. Vital Signs: 15:19 BP 124 / 90; Pulse 84; Resp 16 S; Temp 97(TE); Pulse Ox 97% on R/A; Weight 54.79 kg ca1 (R); Height 5 ft. 2 in. (157.48 cm) (R); Pain 10/10; 16:13 BP 115 / 86; Pulse 79; Resp 20 S; Temp 97.5(TE); Pulse Ox 100% on R/A; aa5 15:19 Body Mass Index 22.09 (54.79 kg, 157.48 cm) ca1 ED Course: 14:47 Patient arrived in ED. am2 15:20 Triage completed. ca1 15:21 Arm band placed on right wrist. ca1 15:45 Gayle Ayala FNP-C is PHCP. kb 15:45 Misty Weinstein MD is Attending Physician. kb 15:55 Patient has correct armband on for positive identification. Placed in gown. Bed in low aa5 position. Call light in reach. Side rails up X2. 16:12 Catie Melendez, RN is Primary Nurse. aa5 16:30 Initial lab(s) drawn, by me, sent to lab. Inserted saline lock: 20 gauge in right fm2 antecubital area, using aseptic technique. Blood collected. 16:48 CT Abd/Pelvis - IV Contrast Only In Process Unspecified. EDMS 18:45 IV discontinued, intact, bleeding controlled, No redness/swelling at site. Pressure fm2 dressing applied. Administered Medications: 16:36 Drug: morphine 4 mg Route: IVP; Site: right antecubital; fm2 17:20 Follow up: Response: No adverse reaction aa5 16:37 Drug: NS 0.9% 1000 ml Route: IV; Rate: 1000 ml; Site: right antecubital; fm2 17:20 Follow up: IV Status: Completed infusion; IV Intake: 1000ml aa5 16:39 Drug: Zofran (Ondansetron) 4 mg Route: IVP; Site: right antecubital; fm2 17:20 Follow up: Response: No adverse reaction aa5 17:36 Drug: TORadol - (ketorolac) 15 mg Route: IVP; Site: right antecubital; fm2 Intake: 17:20 IV: 1000ml; Total: 1000ml. aa5 Outcome: 17:56 Discharge ordered by . kb 18:45 Patient left the ED. eb 18:45 Discharged to home ambulatory. fm2 18:45 Condition: stable 18:45 Discharge instructions given to patient, Instructed on discharge instructions, follow up and referral plans. medication usage, Demonstrated understanding of instructions, follow-up care, medications, Prescriptions given X 2. Signatures: Dispatcher [employer] EDMS Gayle Ayala, SLURRY MIXER-C SLURRY MIXER-Catie Andrade RN RN aa5 Cornelia Guzman 2 Leila Bland Tao Jacques 2 Brea Leonardo RN RN ca1 Corrections: (The following items were deleted from the chart) 19:43 17:50 Response: No adverse reaction aa5 aa5
[2021-03-21 19:18] VITALS: BP 115/86; TEMP 97.5; O2SAT 100
[2021-03-21 19:40] LABS: Blood Morphology Comment NOT SEEN (NOT SEEN); Platelet Estimate ADEQ; White Blood Cell Scan OK (OK)
== END 2021-03-21 18:45 | disposition home or self-care (01) ==
LOC: ER 14:47
DX: R10.30 Lower abdominal pain, unspecified (principal); Z86.73 Personal history of transient ischemic attack (TIA), and cerebral infarction without residual deficits; F41.0 Panic disorder [episodic paroxysmal anxiety]
CPT/HCPCS: 96361; 85025; 80048; 36415; 82565; 80076; 81003; 83690; 74177; 96375; 96374; 99284; Q9967; J7030; J2405

== ENCOUNTER 2021-10-18 21:54 | Emergency (ER) | payer OTHER, SELFPAY ==
--- OUTSIDE RECORDS SUMMARY | 2021-10-18 21:57 | XMS REPORT | Continuity of Care Document ---
:1980 Author Organization [facility] t Address [address] [place] [address] Care Team Providers Name Role Phone RIAN Attending Clinician Unavailable RIAN Admitting Clinician Unavailable Problems This patient has no known problems. Allergies, Adverse Reactions, Alerts This patient has no known allergies or adverse reactions. Medications This patient has no known medications. Procedures This patient has no known procedures. Results Test Description Test Time Test Comments Results Result Sourc e Comments BREAST ULTRASOUND 2019-03-06 - DIAG MAMM BILATERAL BILATERAL 11:11:26 ALAN CAD DIGITALBILATERAL FIRST EVER DIGITAL DIAGNOSTIC MAMMOGRAM 3D/2D WITH CAD: 03/06/2019Digital breast tomosynthesis was performed in addition to routine CC and MLO views. Current mammographic images were evaluated by either a [employer] M-Vu or a [employer] ImageChecker CAD (computer aided detection system). No [...] guidelines. Pierre Nicole M.D. et/:03/06/2019 11:11:26 Entry: atif - 03/07/2019 12:50:12Imaging Technologist: Nia GOMES, Shan Mazon Breast Imaging-FWletter sent: BIRADS 1-2 Combo FU Letter Mammogram BI-RADS: 0 Indeterminate Ultrasound BI-RADS: 2 Benign DIAG MAMM 2019-03-06 - DIAG MAMM BILATERAL BILATERAL ALAN CAD 11:11:26 ALAN CAD DIGITAL DIGITALBILATERAL FIRST EVER DIGITAL DIAGNOSTIC MAMMOGRAM 3D/2D WITH CAD: 03/06/2019Digital breast tomosynthesis was performed in addition to routine CC and MLO views. Current mammographic images were evaluated by either a [employer] M-Vu or a [employer] ImageAppointmentCityer CAD (computer aided detection system). No prior [...] - 03/07/2019 12:50:12Imaging Technologist: Nia GOMES, Shan Mazon Breast Imaging-FWletter sent: BIRADS 1-2 Combo FU [...] (test Negative screen for Lupus code = 3176) Anticoagulant CORK-ZAEOZLXHAWW-127 (BEAKER) (test Angel Hamilton M.D. (electonic code = 2610) signature) DRVV SCREEN RATIO (BEAKER) (test 0.59 <1.20 code = 9117) Effective 03/25/2014: Test Method ChangeDRVV Screen Ratio, DRVV 1/1 Screen Ratio, DRVV Confirm Ratio,DRVV Normalized Ratio Reference Range: <1.2Protime Reference Range ChangeNew: 11.7-14.7 Previous: 9.8-12.0PTT Reference Range ChangeNew: 22.5-36.0 Previous: 25.8-34.5HEXAGONAL [id number] 12:56:00 Test Item Value Reference Range Interpretation Comments HEXAGONAL PHOSPHOLIPID (BEAKER) Negative (test code = 1790) BASIC METABOLIC [id number] 05:51:00 Test Item Value Reference Range Interpretation [...] PATIEN TS. CBC W/PLT COUNT & AUTO [id number] 05:29:00 Test Item Value Reference Range Interpretation [...] PERCENT (BEAKER) (test code = 2801) SEDIMENTATION [id number] 10:56:00 Test Item Value Reference Range Interpretation Comments SEDIMENTATION RATE, ERYTHROCYTE 21 mm/HR 0-20 H (BEAKER) (test code = 766) CBC W/PLT COUNT & AUTO [id number] 09:30:00 Test Item Value Reference Range Interpretation [...] COUNTED (BEAKER) (test code = 1351) POCT-GLUCOSE [id number] 06:41:00 Test Item Value Reference Range Interpretation Comments POC-GLUCOSE METER 103 mg/dL 70-110 TESTED AT [place] [address] ([facility]) (test code = [facility] 1538) [address] BASIC METABOLIC [id number] 05:21:00 Test Item Value Reference Range Interpretation [...] = 358) GLUCOSE RANDOM 92 mg/dL 70-105 (BEAKER) (test code = 652) CALCIUM (BEAKER) 9.3 mg/dL 8.4-10.2 (test code = 697) EGFR (BEAKER) (test 79 mL/min/1.73 ESTIMA JAVON GFR IS code = 1092) sq m NOT ACCURATE CREATININE CLEARANCE IN PREDICTING GLOMERULAR FILTRATION RATE . ESTIMATED GFR I S NOT APPLICABLE FOR DIALYSIS PATIEN TS. POCT-GLUCOSE [id number] 23:38:00 Test Item Value Reference Range Interpretation Comments POC-GLUCOSE METER 84 mg/dL 70-110 TESTED AT [place] [id number] ([facility] (test code = [facility] [address] 1538) POCT-GLUCOSE [id number] 16:02:00 Test Item Value Reference Range Interpretation Comments POC-GLUCOSE METER 80 mg/dL 70-110 TESTED AT [place] [address] ([facility]) (test code = [facility] [address]38) ANTI-NUCLEAR ANTIBODY (MEI)2017-07-05 13:36:00 Test Item Value Reference Range Interpretation Comments ANTI-NUCLEAR ANTIBODY (MEI) ([facility]) Negative Negative (test code = 418) CARDIOLIPIN ANTIBODIES, IGG AND [id number] 13:10:00 Test Item Value Reference Range Interpretation Comments ANTICARDIOLIPIN IGG ANTIBODY ([facility]) < GPL (test code = 712) ANTICARDIOLIPIN IGM ANTIBODY ([facility]) 0.2 MPL (test code = 713) Anticardiolipin IgG Result Interpretation:NEG: <20 GPL; U/mlPOS: >/=20 GPL; U/mlAnticardiolipin IgM Result Interpretation:NEG: <20 MPL; U/mlPOS: >/=20 MPL; U/mlPOCT-GLUCOSE [id number] 12:20:00 Test Item Value Reference Range Interpretation Comments POC-GLUCOSE METER 76 mg/dL 70-110 TESTED AT [place] [address] ([facility]) (test code = [facility] [address] 1538) [id number] 11:07:00 Test Item Value Reference Range Interpretation Comments RPR SCREEN ([facility]) (test code = Nonreactive Nonreactive 420) RHEUMATOID FACTOR AB, REFLEX TO [id number] 11:03:00 Test Item Value Reference Range Interpretation Comments RHEUMATOID FACTOR ([facility]) (test Negative code = 573) HEMOGLOBIN [id number] 08:35:00 Test Item Value Reference Range Interpretation Comments HEMOGLOBIN A1C 5.0 % 4.3-6.1 POSSIBLE HEMO GLOBIN S ([facility]) (test code = VARIAN T NOTED IN 368) HEMOGLOBIN A1C CHROMATOGRAPH. SUGGEST HEMOGLOBIN ELEC TROPHORESIS IF CLINICALLY I NDICATED. FastingPOCT-GLUCOSE [id number] 08:15:00 Test Item Value Reference Range Interpretation Comments POC-GLUCOSE METER 93 mg/dL 70-110 TESTED AT [place] [address] ([facility]) (test code = [facility] [address] 1538) TSH/FREE T4 IF [id number] 06:26:00 Test Item Value Reference Range Interpretation Comments THYROID STIMULATING HORMONE 3.65 uIU/mL 0.35-4.94 ([facility]) (test code = 772) VITAMIN B12 AND [id number] 06:26:00 Test Item Value Reference Range Interpretation Comments VITAMIN B12 (BEAKER) (test code = 726 pg/mL 213-816 774) FOLATE (BEAKER) (test code = 362) 12.3 ng/mL >=7.0 Effective 10/07/2014: Folate Reference Range ChangeNew: >=7.0 Previous: >=5.4LIPID [id number] 05:56:00 Test Item Value Reference Range Interpretation [...] High 160-189 Very High >=190 FastingBASIC METABOLIC [id number] 05:56:00 Test Item Value Reference Range Interpretation [...] APPLICABLE FOR DIALYSIS PATIEN TS. FastingHEPATIC FUNCTION [id number] 05:56:00 Test Item Value Reference Range Interpretation [...] 6-55 347) FastingCREATINE KINASE (CK), TOTAL AND [id number] 05:56:00 Test Item Value Reference Range Interpretation Comments CREATINE KINASE TOTAL (BEAKER) 100 U/L 29-200 (test code = 380) CREATINE KINASE-MB (BEAKER) (test 0.4 ng/mL 0.0-6.6 code = 750) CREATINE KINASE-MB INDEX (BEAKER) 0.4 % (test code = 395) Effective 10/07/2014: CK-MB Reference Range ChangeNew: 0.0-6.6 Previous: 0.0-4.9CK-MB Reference Range:<6.7 Normal6.7-10.0 Borderline>10.0 AbnormalFastingFastingTROPONIN [id number] 05:54:00 Test Item Value Reference Range Interpretation [...] and persistent tachyarrhythmia.FastingCBC W/PLT COUNT & AUTO [id number] 05:44:00 Test Item Value Reference Range Interpretation [...] PERCENT (BEAKER) (test code = 2801) PROTHROMBIN TIME/[id number] 05:40:00 Test Item Value Reference Range Interpretation Comments PROTIME (BEAKER) (test code = 14.3 seconds 11.7-14.7 759) INR (BEAKER) (test code = 370) 1.1 <=5.9 RECOMMENDED COUMADIN/WARFARIN INR THERAPY RANGESSTANDARD DOSE: 2.0 - 3.0 Includes: PROPHYLAXIS forvenous thrombosis, systemic embolization; TREATMENT for venous thrombosis and/or pulmonary embolus.HIGH RISK: Target INR is 2.5-3.5 for patients with mechanical heart valves.POCT-GLUCOSE [id number] 22:44:00 Test Item Value Reference Range Interpretation Comments POC-GLUCOSE METER 82 mg/dL 70-110 TESTED AT [facility] 6720 (BEAKER) (test code = [facility] [address] 1538) RAPID DRUG SCREEN, [id number] 20:39:00 Test Item Value Reference Range Interpretation [...] situations. Chain of custody not maintained. Some qsmt-tws-oyhkjkj medications, as well as adulterants, may cause inaccurate results. Clinical correlation should be applied. A more comprehensive drug screen or confirmation of a detected drug may be performed upon request. URINALYSIS W/ [id number] 18:36:00 Test Item Value Reference Range Interpretation [...] 516) SOURCE(BEAKER) (test code = Urine, Voided 2207)
--- NOTE | 2021-10-18 23:18 | EDPHYS ---
Physician Documentation [facility] Name: Marianna Phillips Age: 41 yrs Sex: Female : 1980 Arrival Date: 10/18/2021 Time: 21:58 Bed Treatment Private MD: ED Physician Wander Spears HPI: 10/18 22:39 This 41 yrs old Black Female presents to ER via Ambulatory with complaints of Swollen kb Glands. 22:39 The patient presents with sore throat. The patient describes throat pain as constant. kb Onset: The symptoms/episode began/occurred yesterday. Severity of symptoms: At their worst the symptoms were mild, moderate, in the emergency department the symptoms are unchanged. Modifying factors: The symptoms are alleviated by nothing, the symptoms are aggravated by swallowing, Patient's oral intake status: good. Associated signs and symptoms: Pertinent positives: Sore throat Pertinent negatives fever. The patient has not experienced similar symptoms in the past. The patient has not recently seen a physician. Pt reports sore throat and swollen lymphnodes since yesterday. 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 - Social history:: Smoking status: Patient denies any tobacco usage or history of. Patient/guardian denies using alcohol. ROS: 22:39 Constitutional: Negative for fever, chills, and weight loss. kb 22:39 ENT: Positive for sore throat. 22:39 Neck: Positive for swollen nodes. 22:39 All other systems are negative. Exam: 22:39 Constitutional: This is a well developed, well nourished patient who is awake, alert, kb and in no acute distress. Head/Face: Normocephalic, atraumatic. Respiratory: Respirations even and unlabored. No increased work of breathing, no retractions or nasal flaring. Skin: Warm, dry with normal turgor. Normal color. MS/ Extremity: Pulses equal, no cyanosis. Neurovascular intact. Full, normal range of motion. Neuro: Awake and alert, GCS 15, oriented to person, place, time, and situation. Moves all extremities. Normal gait. Psych: Awake, alert, with orientation to person, place and time. Behavior, mood, and affect are within normal limits. 22:39 ENT: Mouth: is normal, Posterior pharynx: is normal. 22:39 Neck: Lymph nodes: lymphadenopathy is appreciated, anterior cervical nodes. Vital Signs: 22:00 BP 114 / 88; Pulse 83; Resp 18; Temp 98.4(TE); Pulse Ox 100% on R/A; Weight 56.7 kg; ld1 Height 5 ft. 2 in. (157.48 cm); Pain 0/10; 22:51 BP 110 / 69; Pulse 77; Resp 17; Temp 98.0; Pulse Ox 98% on R/A; kd3 23:21 BP 118 / 72; Pulse 72; Resp 18; Pulse Ox 99% on R/A; ld1 22:00 Body Mass Index 22.86 (56.70 kg, 157.48 cm) ld1 MDM: 22:02 Patient medically screened. kb 22:39 Data reviewed: vital signs, nurses notes. Data interpreted: Pulse oximetry: on room air kb is 100 %. Interpretation: normal. 23:17 Counseling: I had a detailed discussion with the patient and/or guardian regarding: the kb historical points, exam findings, and any diagnostic results supporting the discharge/admit diagnosis, lab results, the need for outpatient follow up, a family practitioner, to return to the emergency department if symptoms worsen or persist or if there are any questions or concerns that arise at home. 10/18 22:02 Order name: Strep kb 10/18 23:18 Order name: Throat Culture EDMS Administered Medications: No medications were administered Disposition: 10/19 00:18 Co-signature as Attending Physician, Wander Spears MD I agree with the assessment and rn plan of care. Attestation: The patient's history, exam findings, diagnostics, and a summary of any interventions or procedures was reviewed in detail with Gayle WILLS. Disposition Summary: 10/18/21 23:17 Discharge Ordered Location: Home kb Condition: Stable kb Diagnosis - Acute pharyngitis, unspecified kb - Acute lymphadenitis, unspecified kb Followup: kb - With: Emergency Department - When: As needed - Reason: Worsening of condition Followup: kb - With: Private Physician - When: 2 - 3 days - Reason: Recheck today's complaints, Continuance of care, Re-evaluation by your physician Discharge Instructions: - Discharge Summary Sheet kb - Pharyngitis, Rmrc-sn-Cblu kb - Lymphadenopathy kb Forms: - Medication Reconciliation Form kb - Thank You Letter kb - Antibiotic Education kb - Prescription Opioid Use kb Signatures: Dispatcher [employer] EDMS Gayle Ayala, MAURO-Tanya WADE-Wander Wells MD MD rn Yu Marrufo RN RN ld1
--- NOTE | 2021-10-18 23:18 | ER ---
Nurse's Notes [facility] Name: Marianna Phillips Age: 41 yrs Sex: Female : 1980 Arrival Date: 10/18/2021 Time: 21:58 Bed Treatment Private MD: Diagnosis: Acute pharyngitis, unspecified;Acute lymphadenitis, unspecified Presentation: 10/18 22:00 Chief complaint: Patient states: Pt reporting throat pain and swollen lymph nodes. ld1 Coronavirus screen: At this time, the client does not indicate any symptoms associated with coronavirus-19. Ebola Screen: No symptoms or risks identified at this time. Initial Sepsis Screen: Does the patient meet any 2 criteria? No. Patient's initial sepsis screen is negative. Does the patient have a suspected source of infection? No. Patient's initial sepsis screen is negative. Risk Assessment: Do you want to hurt yourself or someone else? Patient reports no desire to harm self or others. Onset of symptoms was October 18, 2021. 22:00 Method Of Arrival: Ambulatory ld1 22:00 Acuity: YUNIOR 4 ld1 Triage Assessment: 22:02 General: Appears in no apparent distress. comfortable, Behavior is calm, cooperative, ld1 appropriate for age. Pain: Complains of pain in uvula Pain does not radiate. Pain currently is 7 out of 10 on a pain scale. Quality of pain is described as throbbing, Pain began suddenly, Is continuous. EENT: Reports Sore throat and swollen lymph nodes. Neuro: Level of Consciousness is awake, alert, obeys commands, Oriented to person, place, time, situation, Appropriate for age. Cardiovascular: Capillary refill < 3 seconds Patient's skin is warm and dry. Respiratory: Airway is patent Respiratory effort is even, unlabored, Respiratory pattern is regular, symmetrical. GI: Abdomen is round non-distended. : No signs and/or symptoms were reported regarding the genitourinary system. Derm: No signs and/or symptoms reported regarding the dermatologic system. Musculoskeletal: No signs and/or symptoms reported regarding the musculoskeletal system. 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 - Social history:: Smoking status: Patient denies any tobacco usage or history of. Patient/guardian denies using alcohol. Screenin:49 Abuse screen: Denies threats or abuse. Denies injuries from another. Nutritional kd3 screening: No deficits noted. Tuberculosis screening: No symptoms or risk factors identified. Fall Risk None identified. Assessment: 22:50 General: Appears in no apparent distress. Behavior is calm, cooperative, appropriate kd3 for age. Pain: Complains of pain in right sternocleidomastoid. Neuro: No deficits noted. Level of Consciousness is awake, alert, obeys commands, Oriented to person, place, time, situation. Cardiovascular: Patient's skin is warm and dry. Rhythm is sinus rhythm. Respiratory: No deficits noted. Airway is patent Respiratory effort is even, unlabored. Vital Signs: 22:00 BP 114 / 88; Pulse 83; Resp 18; Temp 98.4(TE); Pulse Ox 100% on R/A; Weight 56.7 kg; ld1 Height 5 ft. 2 in. (157.48 cm); Pain 0/10; 22:51 BP 110 / 69; Pulse 77; Resp 17; Temp 98.0; Pulse Ox 98% on R/A; kd3 23:21 BP 118 / 72; Pulse 72; Resp 18; Pulse Ox 99% on R/A; ld1 22:00 Body Mass Index 22.86 (56.70 kg, 157.48 cm) ld1 ED Course: 21:58 Patient arrived in ED. wm 22:01 Triage completed. ld1 22:02 Gayle Ayala FNP-C [facility]. kb 22:02 Wander Spears MD is Attending Physician. kb 22:02 Arm band placed on left wrist. ld1 22:05 Strep Sent. ld1 22:49 Patient has correct armband on for positive identification. Call light in reach. kd3 22:53 Alina Cm, SHARIF is Primary Nurse. kd3 23:21 No provider procedures requiring assistance completed. Patient did not have IV access ld1 during this emergency room visit. Administered Medications: No medications were administered Outcome: 23:17 Discharge ordered by . kb 23:22 Discharged to home ambulatory. ld1 23:22 Condition: stable 23:22 Discharge instructions given to patient, Instructed on discharge instructions, follow up and referral plans. Demonstrated understanding of instructions, follow-up care. 23:22 Patient left the ED. ld1 Signatures: Gayle Ayala, UNIONMELT OPERATOR-C UNIONMELT OPERATOR-CkYu Spence, RN RN ld1 Ciera Dominguez Kyli RN RN kd3
[2021-10-18 23:30] VITALS: TEMP 98
[2021-10-18 23:31] VITALS: BP 118/72; O2SAT 99
== END 2021-10-18 23:22 | disposition home or self-care (01) ==
LOC: ER 21:54
DX: J02.9 Acute pharyngitis, unspecified (principal); L04.9 Acute lymphadenitis, unspecified
CPT/HCPCS: 87070; 87081; 99284

== ENCOUNTER 2023-05-05 22:40 | Emergency (ER) | payer SELFPAY ==
--- OUTSIDE RECORDS SUMMARY | 2023-05-05 22:43 | XMS REPORT | Continuity of Care Document ---
:1980 Author Organization [facility] t Address [address] [facility]. [address] [place] [address] Care Team Providers Name Role Phone Cornelia Amanda Primary Care Physician Rachel Garcia MA Attending Clinician Unavailable KERRIE RIOS Attending Clinician Unavailable CECILIA BERNARD Attending Clinician Unavailable Doctor Unassigned, [place] Attending Clinician Unavailable Jeannie Durbin LVN Attending Clinician Unavailable Cornelia Amanda Attending Clinician CORNELIA HENRIQUEZ Attending Clinician Unavailable Aj LINE LEADERKim Attending Clinician LUISA CORRAL Attending Clinician Unavailable Lab, Adc Fam Pob I Attending Clinician Unavailable Luisa Billy Attending Clinician JUANA MODI Attending Clinician Unavailable JUANA MODI Admitting Clinician Unavailable Payers Payer Name Policy Type Policy Number Effective Date Expiration Date Rossana wakefield WEBTPA [id number] 2020 00:00:00 Problems Condition Condition Condition Status Onset Resolution Last Treating Co mments Source Name Details Category Date Date Treatment Clinician Date Anxiety Anxiety Disease Active Univers 8-25 ity of 00:00: [address] Decreased Decreased Disease Active Uni vers appetite appetite 8-25 ity of 00:00: [place] [facility] Chronic Chronic Disease Active Univers fatigue fatigue 8-25 ity of 00:00: [place] [facility] Branch Sleep Sleep Disease Active Univers difficulti difficulti 8-25 it y of es es 00:00: [place] [address] Medical Branch History of History of Disease Active U nivers CVA CVA 8-25 ity of ([place]re[place] Medical accident) accident) Bran ch History of History of Disease Active U nivers DVT (deep DVT (deep 825 ity of vein vein 00:00: [place] thrombosis thrombosis 00 Ar dical ) ) Branch Conversion Conversion Disease Active [facility]: [facility] 00 [place] Depression Depression Disease Active [facility] , , 07-08 [facility] unspecifie unspecifie 00:00: Ar dical d d 00 [place] depression depression type type Acute Acute Disease Recurre [facility] ischemic ischemic nce [facility] stroke stroke 00:00: Medical 00 Center Allergies, Adverse Reactions, Alerts Allergy Allergy Status Severity Reaction(s) Onset Inactive Treating Comm ents Source Name Type Date Date Clinician NO KNOWN Drug Active Univers ALLERGIE Class ity of S [facility] Family History Family Member Diagnosis Comments Start Date Stop Date Source Natural mother Diabetes LAMINE Davis Komal [facility] Social History Social Habit Start Date Stop Date Quantity Comments Source Exposure to 2022-07-04 2022-07-14 Not sure [facility] SARS-CoV-2 00:00:00 07:42:00 [facility] (event) Branch Tobacco use and 2022-07-14 2022-07-14 Smokeless tobacco Un iversity of exposure 00:00:00 00:00:00 non-user [facility] Alcohol intake 2022-07-14 2022-07-14 Ex-drinker [facility] 00:00:00 00:00:00 (finding) [facility] Sex Assigned At [address] Yeni kes 00:00:00 00:00:00 [facility] Smoking Status Start Date Stop Date Source Never smoked tobacco [facility] Medications Ordered Filled Start Stop Current Ordering Indication Dosage Frequency Signature Comments Components Source Medication Medication Date Date Medication? Clinician (SIG) Name Name busPIRone 5 0 Yes [id number] 5mg Take 1 Univers mg tablet 8-25 tablet by ity o f 00:00: mouth in [place] 00 the Medical morning Branch and 1 tablet in the evening. busPIRone 5 2021-0 Yes [id number] 5mg Take 1 Univers mg tablet 8-25 tablet by ity o f 00:00: mouth in [place] 00 the Medical morning Branch and 1 tablet in the evening. busPIRone 5 2021-0 Yes [id number] 5mg Take 1 Univers mg tablet 8-25 tablet by ity o f 00:00: mouth in [place] 00 the Medical morning Branch and 1 tablet in the evening. busPIRone 5 0 Yes [id number] 5mg Take 1 Univers mg tablet 8-25 tablet by ity o f 00:00: mouth in [place] 00 the Medical morning Branch and 1 tablet in the evening. busPIRone 5 2021-0 Yes [id number] 5mg Take 1 Univers mg tablet 8-25 tablet by ity o f 00:00: mouth in [place] 00 the Medical morning Branch and 1 tablet in the evening. busPIRone 5 2021-0 Yes [id number] 5mg Take 1 Univers mg tablet 8-25 tablet by ity o f 00:00: mouth in [place] 00 the Medical morning Branch and 1 tablet in the evening. Immunizations Ordered Filled Immunization Date Status Comments [facility] Immunization Name Name SARS-COV-2 COVID-19 2021-11-09 Completed Unive rsity of [place]ER[place] 0.25ML 00:00:00 [place] Medi tang BOOSTER VACCINE Branch SARS-COV-2 COVID-19 2021-11-09 Completed Unive rsity of [place] 0.25ML 00:00:00 [place] Medi tang BOOSTER VACCINE Branch SARS-COV-2 COVID-19 2021-11-09 Completed Unive rsity of [place] 0.25ML 00:00:00 [place] Medi tang BOOSTER VACCINE Branch SARS-COV-2 COVID-19 2021-11-09 Completed Unive rsity of [place] 0.25ML 00:00:00 [place] Medi tang BOOSTER VACCINE Branch SARS-COV-2 COVID-19 2021-11-09 Completed Unive rsity of [place] 0.25ML 00:00:00 [place] Medi tang BOOSTER VACCINE Branch SARS-COV-2 COVID-19 2021-11-09 Completed Unive rsity of [place] 0.25ML 00:00:00 [place] Medi tang BOOSTER VACCINE Branch SARS-COV-2 COVID-19 2021-03-25 Completed Unive rsity of [place] VACCINE 00:00:00 [place] Med ical Branch SARS-COV-2 COVID-19 2021-03-25 Completed Unive rsity of [place] VACCINE 00:00:00 [place] Med ical Branch SARS-COV-2 COVID-19 2021-03-25 Completed Unive rsity of [place] VACCINE 00:00:00 [place] Med ical Branch SARS-COV-2 COVID-19 2021-03-25 Completed Unive rsity of MODERNA 12+ YRS 00:00:00 [place] Med ical VACCINE Branch SARS-COV-2 COVID-19 2021-03-25 Completed Unive rsity of MODERNA 12+ YRS 00:00:00 [place] Med ical VACCINE Branch SARS-COV-2 COVID-19 2021-03-25 Completed Unive rsity of [place]ER[place] VACCINE 00:00:00 [place] Med ical Branch SARS-COV-2 COVID-19 2021-02-20 Completed Unive rsity of [place]ER[place] VACCINE 00:00:00 [place] Med ical Branch SARS-COV-2 COVID-19 2021-02-20 Completed Unive rsity of MODERNA VACCINE 00:00:00 [place] Med ical Branch SARS-COV-2 COVID-19 2021-02-20 Completed Unive rsity of MODERNA VACCINE 00:00:00 [place] Med ical Branch SARS-COV-2 COVID-19 2021-02-20 Completed Unive rsity of MODERNA 12+ YRS 00:00:00 [place] Med ical VACCINE Branch SARS-COV-2 COVID-19 2021-02-20 Completed Unive rsity of MODERNA 12+ YRS 00:00:00 [place] Med ical VACCINE Branch SARS-COV-2 COVID-19 2021-02-20 Completed Unive rsity of [place] VACCINE 00:00:00 [place] [facility] ical Branch Procedures Procedure Date / Time Performed Performing Clinician Sour e EXTERNAL PROVIDER 2022-08-08 05:01:00 Doctor Unassigned, No Univ ersity of [place] RECORDS Name Medical Branch Encounters Start End Encounter Admission Attending Care Care Encounter Source Date/Time Date/Time Type Type Clinicians Facility Department ID 2023-01-25 2023-01-25 Case CARLOS Garcia [id number] Univers 00:00:00 00:00:00 Management Rachel GRAY [id number] [place] [id number] [facility] [address] [place] 2022-10-03 2022-10-03 [place] [id number] Univers 08:00:00 08:00:00 KERRIE dorsey [facility] [place] [facility] 2022-09-26 2022-09-26 Outpatient R [place] [id number] Univers 09:40:00 09:40:00 CECILIA dorsey o f [facility] 2022-08-08 2022-08-08 Orders Doctor ANNMARIE [id number] Univers 00:00:00 00:00:00 Only Unassigned, ANH 350.1.13.10 ity of [place] [facility] 4.2.7.2.686 Frederic as [phone] [facility] [address] 2022-07-15 2022-07-15 [facility] [id number] Univers 00:00:00 00:00:00 Secure Msg Jeannie Mccartney HEALTH 350.1.13.10 ity of [place] 4.2.7.2.686 Frederic as CATE?BLEA [id number] [address] MEDICAL OFFICE [facility] 2022-07-15 2022-07-15 Patient Ramakrishna [facility] [id number] Univers 00:00:00 00:00:00 Secure Msg Jeannie Mccartney HEALTH [id number] ity of [place] 4.2.7.2.686 Frederic as CATE?BLEA [phone] [address] MEDICAL OFFICE [facility] 2022-07-15 2022-07-15 Telephone Martinze [facility] [id number] Univers 00:00:00 00:00:00 Cornelia A HEALTH 350.1.13.10 i ty of [place] 4.2.7.2.686 Frederic as CATE?BLEA [phone] [address] OFFICE [facility] 2022-07-14 2022-07-14 Outpatient R MARTINEZ [facility] [id number] Univers 08:00:00 08:53:23 CORNELIA ity of [facility] 2022-07-14 2022-07-14 [facility] [id number] Univers 08:00:00 08:53:23 Visit Cornelia Zambrano HEALTH 350.1.13.10 i ty [facility] 4.2.7.2.686 Frederic as CATE?BLEA [phone] [address] OFFICE [facility] 2022-07-14 2022-07-14 Orders Doctor ANNMARIE [id number] Univers 00:00:00 00:00:00 Only Unassigned, ANH 350.1.13.10 ity of [place] [facility] 4.2.7.2.686 Frederic as [phone] [address] 2022-07-14 2022-07-14 [facility] [id number] Univers 00:00:00 00:00:00 Outreach Kim Newsome HEALTH 350.1.13.10 i ty of [place] 4.2.7.2.686 Frederic as CATE?BLEA [id number] [address] OFFICE [facility] 2022-07-13 2022-07-13 Letter [facility] [id number] Univers 00:00:00 00:00:00 (Out) Cornelia Zambrano HEALTH 350.1.13.10 i ty of [place] 4.2.7.2.686 Frederic as CATE?BLEA [id number] [address] OFFICE [facility] 2020-05-27 2020-05-27 Outpatient R JUSTIN [facility] [id number] Univers 16:40:00 16:40:00 LUISA dorsey of [facility] 2020-05-27 2020-05-27 Laboratory Lab, Adc Fam Pob I [facility] 1.2. [id number] [facility] 16:17:52 16:37:52 Only Luisa Corral 350.1.13.10 ity of [place] 4.2.7.2.686 Frederic as Professio [phone] Ar dical nal 0[address] Branch [address] 2020-05-27 2020-05-27 Laboratory Lab, [facility] 1.2.840.114 [id number] 16:17:52 16:37:52 Only [place] Pob I Health 350.1.13.10 [place] 4.2.7.2.686 Professio [phone] nal 0[address] Office [address] One Results Test Description Test Time Test Comments Results Result [facility] Comments BREAST ULTRASOUND 2019-03-06 - DIAG MAMM BILATERAL BILATERAL 11:11:26 ALAN CAD DIGITALBILATERAL FIRST EVER DIGITAL DIAGNOSTIC MAMMOGRAM 3D/2D WITH CAD: 03/06/2019Digital breast tomosynthesis was performed in addition to routine CC and MLO views. Current mammographic images were evaluated by either a Working Equity M-Vu or a Tesaris ImageChecker CAD (computer aided detection system). No [...] atif - 03/07/2019 12:50:12Imaging Technologist: Nia GOMES, [facility]-FWletter sent: BIRADS 1-2 Combo FU Letter Mammogram BI-RADS: 0 Indeterminate Ultrasound BI-RADS: 2 Benign DIAG MAMM 2019-03-06 - DIAG MAMM BILATERAL BILATERAL ALAN CAD 11:11:26 ALAN CAD DIGITAL DIGITALBILATERAL FIRST EVER DIGITAL DIAGNOSTIC MAMMOGRAM 3D/2D WITH CAD: 03/06/2019Digital breast tomosynthesis was performed in addition to routine CC and MLO views. Current mammographic images were evaluated by either a Working Equity M-Vu or a Tesaris ImageChecker CAD (computer aided detection system). No [...] atif - 03/07/2019 12:50:12Imaging Technologist: Nia GOMES, [facility]FW[facility] sent: BIRADS 1-2 Combo FU [...] screen for Lupus code = 2406) Anticoagulant [id number] (BEAKER) (test Angel [employer], M.D. (electonic code = 2610) signature) DRVV SCREEN RATIO (BEAKER) (test 0.59 <1.20 code = 7717) Effective 03/25/2014: Test Method ChangeDRVV Screen Ratio, DRVV 1/1 Screen Ratio, DRVV Confirm Ratio,DRVV Normalized Ratio Reference Range: <1.2Protime Reference Range ChangeNew: 11.7-14.7 Previous: 9.8-12.0PTT Reference Range ChangeNew: 22.5-36.0 Previous: 25.8-34.5HEXAGONAL [id number] 12:56:00 Test Item Value Reference Range Interpretation Comments HEXAGONAL PHOSPHOLIPID (BEAKER) Negative (test code = 1790) BASIC METABOLIC [id number] 05:51:00 Test Item Value Reference Range Interpretation [...] PATIEN TS. CBC W/PLT COUNT & AUTO [id number] 05:29:00 Test Item Value Reference Range Interpretation [...] PERCENT (BEAKER) (test code = 2801) SEDIMENTATION [id number] 10:56:00 Test Item Value Reference Range Interpretation Comments SEDIMENTATION RATE, ERYTHROCYTE 21 mm/HR 0-20 H (BEAKER) (test code = 766) CBC W/PLT COUNT & AUTO [id number] 09:30:00 Test Item Value Reference Range Interpretation [...] Comments TOTAL COUNTED (BEAKER) (test code = 135) POCT-GLUCOSE [id number] 06:41:00 Test Item Value Reference Range Interpretation Comments POC-GLUCOSE METER 103 mg/dL 70-110 TESTED AT [place] [address] ([facility]) (test code = [facility] 1538) [address] BASIC METABOLIC [id number] 05:21:00 Test Item Value Reference Range Interpretation [...] NOT APPLICABLE FOR DIALYSIS PATIEN TS. POCT-GLUCOSE [id number] 23:38:00 Test Item Value Reference Range Interpretation Comments POC-GLUCOSE METER 84 mg/dL 70-110 TESTED AT [facility] 67[address] ([facility]) (test code = [facility] [address] 1538) POCT-GLUCOSE [id number] 16:02:00 Test Item Value Reference Range Interpretation Comments POC-GLUCOSE METER 80 mg/dL 70-110 TESTED AT [facility] [address] ([facility]) (test code = [facility] [address] 1538) ANTI-NUCLEAR ANTIBODY (MEI)2017-07-05 13:36:00 Test Item Value Reference Range Interpretation Comments ANTI-NUCLEAR ANTIBODY (MEI) ([facility]) Negative Negative (test code = 418) CARDIOLIPIN ANTIBODIES, IGG AND [id number] 13:10:00 Test Item Value Reference Range Interpretation Comments ANTICARDIOLIPIN IGG ANTIBODY (BEAKER) < GPL (test code = 712) ANTICARDIOLIPIN IGM ANTIBODY ([facility]) 0.2 MPL (test code = 713) Anticardiolipin IgG Result Interpretation:NEG: <20 GPL; U/mlPOS: >/=20 GPL; U/mlAnticardiolipin IgM Result Interpretation:NEG: <20 MPL; U/mlPOS: >/=20 MPL; U/mlPOCT-GLUCOSE [id number] 12:20:00 Test Item Value Reference Range Interpretation Comments POC-GLUCOSE METER 76 mg/dL 70-110 TESTED AT [place] [address] ([facility]) (test code = [facility] [address] 1538) [id number] 11:07:00 Test Item Value Reference Range Interpretation Comments RPR SCREEN ([facility]) (test code = Nonreactive Nonreactive 420) RHEUMATOID FACTOR AB, REFLEX TO [id number] 11:03:00 Test Item Value Reference Range Interpretation Comments RHEUMATOID FACTOR ([facility]) (test Negative code = 573) HEMOGLOBIN [id number] 08:35:00 Test Item Value Reference Range Interpretation Comments HEMOGLOBIN A1C 5.0 % 4.3-6.1 POSSIBLE HEMO GLOBIN S ([facility]) (test code = VARIAN T NOTED IN 368) HEMOGLOBIN A1C CHROMATOGRAPH. SUGGEST HEMOGLOBIN ELEC TROPHORESIS IF CLINICALLY I NDICATED. FastingPOCT-GLUCOSE [id number] 08:15:00 Test Item Value Reference Range Interpretation Comments POC-GLUCOSE METER 93 mg/dL 70-110 TESTED AT [place] [address] ([facility]) (test code = [facility] [address] 1538) TSH/FREE T4 IF [id number] 06:26:00 Test Item Value Reference Range Interpretation Comments THYROID STIMULATING HORMONE 3.65 uIU/mL 0.35-4.94 ([facility]) (test code = 772) VITAMIN B12 AND [id number] 06:26:00 Test Item Value Reference Range Interpretation Comments VITAMIN B12 ([facility]) (test code = 726 pg/mL 213-816 774) FOLATE (BEAKER) (test code = 362) 12.3 ng/mL >=7.0 Effective 10/07/2014: Folate Reference Range ChangeNew: >=7.0 Previous: >=5.4LIPID [id number] 05:56:00 Test Item Value Reference Range Interpretation Comments TRIGLYCERIDES (BEAKER) (test code = 65 mg/dL 540) CHOLESTEROL (BEAKER) (test code = 140 mg/dL 631) HDL CHOLESTEROL (BEAKER) (test code 39 mg/dL = 976) LDL CHOLESTEROL CALCULATED (BEAKER) 88 mg/dL (test code = 633) Triglyceride Reference Range: Low Risk <150 Borderline 150-199 High Risk 200- 499 Very High Risk >=500Cholesterol Reference Range: Low Risk <200 Borderline 200-239 High Risk >240HDL Cholesterol Reference Range: Low Risk >=60 High Risk <40LDL Cholesterol Reference Range: Optimal <100 Near Optimal 100-129 Borderline 130-159 High 160-189 Very High >=190 FastingBASIC METABOLIC [id number] 05:56:00 Test Item Value Reference Range Interpretation [...] APPLICABLE FOR DIALYSIS PATIEN TS. FastingHEPATIC FUNCTION [id number] 05:56:00 Test Item Value Reference Range Interpretation [...] 6-55 347) FastingCREATINE KINASE (CK), TOTAL AND [id number] 05:56:00 Test Item Value Reference Range Interpretation Comments CREATINE KINASE TOTAL (BEAKER) 100 U/L 29-200 (test code = 380) CREATINE KINASE-MB (BEAKER) (test 0.4 ng/mL 0.0-6.6 code = 750) CREATINE KINASE-MB INDEX (BEAKER) 0.4 % (test code = 395) Effective 10/07/2014: CK-MB Reference Range ChangeNew: 0.0-6.6 Previous: 0.0-4.9CK-MB Reference Range:<6.7 Normal6.7-10.0 Borderline>10.0 AbnormalFastingFastingTROPONIN [id number] 05:54:00 Test Item Value Reference Range Interpretation Comments TROPONIN I (BEAKER) (test code = 0.01 ng/mL 0.00-0.03 397) Effective 10/07/2014: Reference Range ChangeNew: 0.00-0.03 Previous 0.00- 0.15Troponin I (TnI) levelsmust be interpreted in the context of the [...] failure, acidosis, acute neurological disease, and persistent tachyarrhythmia.FastingCBC W/PLT COUNT & AUTO [id number] 05:44:00 Test Item Value Reference Range Interpretation [...] PERCENT (BEAKER) (test code = 2801) PROTHROMBIN [id number] 05:40:00 Test Item Value Reference Range Interpretation Comments PROTIME (BEAKER) (test code = 14.3 seconds 11.7-14.7 759) INR (BEAKER) (test code = 370) 1.1 <=5.9 RECOMMENDED COUMADIN/WARFARIN INR THERAPY RANGESSTANDARD DOSE: 2.0 - 3.0 Includes: PROPHYLAXIS for venous thrombosis, systemic embolization; TREATMENT for venous thrombosis and/or pulmonary embolus.HIGH RISK: Target INR is 2.5-3.5 for patients with mechanical heart valves.POCT-GLUCOSE [id number] 22:44:00 Test Item Value Reference Range Interpretation Comments POC-GLUCOSE METER 82 mg/dL 70-110 TESTED AT [facility] 67[facility] (BEAKER) (test code = [facility] [address] 1538) RAPID DRUG SCREEN, [id number] 20:39:00 Test Item Value Reference Range Interpretation [...] unconfirmed qualitative test result for the clinical managementof patients in emergency situations. Chain of custody not maintained. Some hovk-bxd-wrwfgjq medications, as well as adulterants, may cause inaccurate results. Clinical correlation should be applied. A more comprehensive drug screen or confirmation of a detected drug may be performed upon request. URINALYSIS W/ [id number] 18:36:00 Test Item Value Reference Range Interpretation [...] 516) SOURCE(BEAKER) (test code = Urine, Voided 4131)
[2023-05-05] MEDS ORDERED: BENZONATATE 100 MG CAP PO ONE (23:08)
[2023-05-05 23:32] LABS: SARS-CoV-2 Antigen Rapid Res Positive (Negative)
--- NOTE | 2023-05-06 00:30 | EDPHYS ---
Physician Documentation [facility] Name: Marianna Phillips Age: 42 yrs Sex: Female : 1980 Arrival Date: 05/05/2023 Time: 22:40 Bed 12 Private MD: ED Physician Chandrakant Hollins HPI: 05/05 22:57 This 42 yrs old Black Female presents to ER via Ambulatory with complaints of Sore cp Throat. 22:57 The patient presents with sore throat. Associated signs and symptoms: Pertinent cp positives: cough times 1 week. 22:57 Severity of symptoms: in the emergency department the symptoms are unchanged, despite cp home interventions. 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 - Social history:: Smoking status: Patient denies any tobacco usage or history of. ROS: 23:00 Constitutional: Negative for body aches, chills, fever, poor PO intake. cp 23:00 ENT: Positive for sore throat, Negative for drainage from ear(s), ear pain, difficulty cp swallowing, difficulty handling secretions. 23:00 Cardiovascular: Negative for chest pain. 23:00 Respiratory: Positive for cough, with no reported sputum, Negative for shortness of breath, wheezing. 23:00 Abdomen/GI: Negative for abdominal pain, vomiting, diarrhea, constipation. 23:00 Eyes: Negative for injury, pain, redness, and discharge. cp 23:00 Skin: Negative for rash. cp 23:00 Neuro: Negative for altered mental status, dizziness, headache, weakness. 23:00 All other systems are negative. Exam: 23:05 Constitutional: The patient appears in no acute distress, alert, awake, non-toxic, well cp developed, well nourished. 23:05 Head/Face: Normocephalic, atraumatic. cp 23:05 Eyes: Periorbital structures: appear normal, Conjunctiva: normal, no exudate, no injection, Lids and lashes: appear normal, bilaterally. 23:05 ENT: External ear(s): are unremarkable, Ear canal(s): are normal, clear, TM's: bulging, is not appreciated, bilaterally, dullness, bilaterally, erythema, is not appreciated, bilaterally, Nose: is normal, Mouth: Lips: moist, Oral mucosa: moist, Posterior pharynx: Airway: no evidence of obstruction, patent, swelling, is not appreciated, erythema, that is mild, exudate, is not appreciated. 23:05 Neck: ROM/movement: is normal, is supple, without pain, no range of motions limitations, no meningismus, Lymph nodes: no appreciated lymphadenopathy. 23:05 Chest/axilla: Inspection: normal. 23:05 Cardiovascular: Rate: normal, Rhythm: regular. 23:05 Respiratory: the patient does not display signs of respiratory distress, Respirations: normal, no use of accessory muscles, no retractions, labored breathing, is not present, Breath sounds: are clear throughout, no decreased breath sounds, no stridor, no wheezing. 23:05 Abdomen/GI: Exam negative for discomfort, distension, guarding, Inspection: abdomen appears normal. Vital Signs: 22:52 BP 139 / 86; Pulse 83; Resp 18 S; Temp 98.7(TE); Pulse Ox 99% on R/A; Weight 65.77 kg as6 (R); Height 5 ft. 3 in. (R); Pain 0/10; 05/06 00:39 BP 135 / 99; Pulse 66; Resp 18 S; Pulse Ox 100% on R/A; as6 05/05 22:52 Body Mass Index 25.69 (65.77 kg, 160.02 cm) as6 05/05 22:52 Pain Scale: Adult as6 MDM: 05/05 22:52 Patient medically screened. cp 23:00 Differential diagnosis: group A strep tonsillitis, influenza, peritonsillar abscess cp pharyngitis, retropharyngeal abcess tonsillitis, upper respiratory infection, COVID-19. 05/06 00:28 Data reviewed: vital signs, nurses notes, lab test result(s). cp 00:28 I considered the following discharge prescriptions or medication management in the emergency department Medications were administered in the Emergency Department. See MAR. Counseling: I had a detailed discussion with the patient and/or guardian regarding: the historical points, exam findings, and any diagnostic results supporting the discharge/admit diagnosis, lab results, to return to the emergency department if symptoms worsen or persist or if there are any questions or concerns that arise at home. Response to treatment: the patient's symptoms have markedly improved after treatment, and as a result, I will discharge patient. 05/05 22:58 Order name: Strep; Complete Time: 00:26 cp 05/05 22:58 Order name: Influenza Screen (a \T\ B); Complete Time: 00:26 cp 05/06 00:26 Interpretation: Reviewed. cp 05/05 22:58 Order name: SARS RAPID; Complete Time: 00:26 cp 05/06 00:26 Interpretation: Reviewed. cp 05/05 23:33 Order name: Throat Culture EDMS Administered Medications: 05/05 23:06 Drug: Tessalon Perle PO 200 mg Route: PO; as6 05/06 00:39 Follow up: Response: No adverse reaction as6 Disposition: 00:42 Co-signature as Attending Physician, Chandrakant Hollins MD I agree with the assessment sp4 and plan of care. I reviewed the patient's care provided by the Advanced Practice Provider and agree with the diagnosis and treatment plan. Disposition Summary: 05/06/23 00:29 Discharge Ordered Location: Home cp Problem: new cp Symptoms: have improved cp Condition: Stable cp Diagnosis - SARS-associated coronavirus as the cause of diseases classified elsewhere cp Followup: cp - With: Private Physician - When: 2 - 3 days - Reason: Worsening of condition Discharge Instructions: - Discharge Summary Sheet cp - Aspirin and Your Heart cp - COVID-19 cp - How to Protect Yourself and Others - [facility] (01/14/2022) cp - 10 Things You Can Do to Manage Your COVID-19 Symptoms at Home - [facility] (06/04/2021) cp - COVID-19: Quarantine and Isolation - [facility] (02/16/2022) cp - COVID-19: What to Do If You Are Sick - [facility] (02/08/2022) cp Forms: - Medication Reconciliation Form cp - Thank You Letter cp - Antibiotic Education cp - Prescription Opioid Use cp - Work release form as6 Prescriptions: - Bromfed DM 2-30-10 mg/5 mL Oral syrup - administer 10 milliliter by ORAL route every 6 to 8 hours as needed for cold cp symptoms; 180 milliliter; Refills: 0, Product Selection Permitted - Ibuprofen 800 mg Oral Tablet - take 1 tablet by ORAL route every 8 hours As needed take with food; 30 tablet; cp Refills: 0, Product Selection Permitted Signatures: Dispatcher [employer] EDMS Paolo Gasca PA PA cp Slawson, Ashby, RN RN as6 Chandrakant Hollins MD MD sp4
--- NOTE | 2023-05-06 00:30 | ER ---
Nurse's Notes [facility] Name: Marianna Phillips Age: 42 yrs Sex: Female : 1980 Arrival Date: 05/05/2023 Time: 22:40 Bed 12 Private MD: Diagnosis: SARS-associated coronavirus as the cause of diseases classified elsewhere Presentation: 05/05 22:52 Chief complaint: Patient states: cough x1 week. Coronavirus screen: At this time, the as6 client does not indicate any symptoms associated with coronavirus-19. Ebola Screen: No symptoms or risks identified at this time. Initial Sepsis Screen: Does the patient meet any 2 criteria? No. Patient's initial sepsis screen is negative. Does the patient have a suspected source of infection? No. Patient's initial sepsis screen is negative. Risk Assessment: Do you want to hurt yourself or someone else? Patient reports no desire to harm self or others. Onset of symptoms was April 28, 2023. 22:52 Method Of Arrival: Ambulatory as6 22:52 Acuity: YUNIOR 4 as6 Triage Assessment: 22:54 General: Appears in no apparent distress. Behavior is calm, cooperative. Pain: Denies as6 pain. EENT: Reports pain in left aspect of posterior pharynx and right aspect of posterior pharynx. Neuro: No deficits noted. Cardiovascular: No deficits noted. Respiratory: No deficits noted. GI: No deficits noted. No signs and/or symptoms were reported involving the gastrointestinal system. : No deficits noted. No signs and/or symptoms were reported regarding the genitourinary system. Derm: No deficits noted. No signs and/or symptoms reported regarding the dermatologic system. 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 - Social history:: Smoking status: Patient denies any tobacco usage or history of. Screenin/17 00:39 [facility] ED Fall Risk Assessment (Adult) Score/Fall Risk Level 0 - 2 = Low Risk. Abuse as6 screen: Denies threats or abuse. Denies injuries from another. Nutritional screening: No deficits noted. Tuberculosis screening: No symptoms or risk factors identified. Vital Signs: 05/05 22:52 BP 139 / 86; Pulse 83; Resp 18 S; Temp 98.7(TE); Pulse Ox 99% on R/A; Weight 65.77 kg as6 (R); Height 5 ft. 3 in. (R); Pain 0/10; 05/06 00:39 BP 135 / 99; Pulse 66; Resp 18 S; Pulse Ox 100% on R/A; as6 05/05 22:52 Body Mass Index 25.69 (65.77 kg, 160.02 cm) as6 05/05 22:52 Pain Scale: Adult as6 ED Course: 05/05 22:45 Patient arrived in ED. ag3 22:52 Paolo Gasca PA is PHCP. cp 22:52 Chandrakant Hollins MD is Attending Physician. cp 22:54 Triage completed. as6 22:54 Arm band placed on. as6 22:58 Zach Felder, SHARIF is Primary Nurse. as6 05/06 00:39 Bed in low position. Call light in reach. Side rails up X 1. as6 00:40 No provider procedures requiring assistance completed. Patient did not have IV access as6 during this emergency room visit. Administered Medications: 05/05 23:06 Drug: Tessalon Perle PO 200 mg Route: PO; as6 05/06 00:39 Follow up: Response: No adverse reaction as6 Medication: 00:39 VIS not applicable for this client. as6 Outcome: 00:29 Discharge ordered by . cp 00:39 Discharged to home ambulatory. as6 00:39 Condition: stable 00:39 Discharge instructions given to patient, Instructed on discharge instructions, follow up and referral plans. medication usage, Demonstrated understanding of instructions, follow-up care, medications, Prescriptions given X 2. 00:40 Patient left the ED. as6 Signatures: Paolo Gasca PA PA Mihaela Carey ag3 Zach Felder, RN RN as6
[2023-05-06 01:04] VITALS: TEMP 98.7
[2023-05-06 01:06] VITALS: BP 135/99; O2SAT 100
== END 2023-05-06 00:40 | disposition home or self-care (01) ==
LOC: ER 22:40
DX: U07.1 COVID-19 (principal)
CPT/HCPCS: 36415; 87070; 87081; 87804; 87811; 99283

== ENCOUNTER 2023-06-28 21:32 | Observation (INO) | payer BC, SELFPAY ==
--- OUTSIDE RECORDS SUMMARY | 2023-06-28 21:36 | XMS REPORT | Continuity of Care Document ---
:1980 Author Organization [facility] t Address [address] [facility] [address] [place] [address] Care Team Providers Name Role Phone Sharpless Primary Care Physician CORNELIA HENRIQUEZ Attending Clinician Unavailable Rachel Garcia MA Attending Clinician Unavailable KERRIE RIOS Attending Clinician Unavailable CECILIA BERNARD Attending Clinician Unavailable Doctor Unassigned, [place] Attending Clinician Unavailable Ramakrishna WASHROOM CLEANERJeannie Attending Clinician Unavailable Cornelia Amanda Attending Clinician Aj RUG SIZERKim MERRILL Attending Clinician LUISA CORRAL Attending Clinician Unavailable Lab, Adc Fam Pob I Attending Clinician Unavailable Luisa Billy Attending Clinician JUANA MODI Attending Clinician Unavailable JUANA MODI Admitting Clinician Unavailable Payers Payer Name Policy Type Policy Number Effective Date Expiration Date Rossana wakefield WEBTPA [id number] 2020 00:00:00 Problems Condition Condition Condition Status Onset Resolution Last Treating Co mments Source Name Details Category Date Date Treatment Clinician Date Anxiety Anxiety Disease Active Univers 8-25 ity of 00:00: [place] 00 Medical Branch Decreased Decreased Disease Active Uni vers appetite appetite 8-25 ity of 00:00: Medical Branch Chronic Chronic Disease Active Univers fatigue fatigue 8-25 ity of 00:00: [place] [facility] Branch Sleep Sleep Disease Active Univers difficulti difficulti 8-25 it y of es es 00:00: [place] [facility] History of History of Disease Active U nivers CVA CVA 8-25 ity of [place] Medical accident[place] accident) Bran ch History of History of Disease Active U nivers DVT (deep DVT (deep 825 ity of vein vein 00:00: [place] thrombosis thrombosis 00 Wi dical ) ) Branch Conversion Conversion Disease Active [facility] disorder [facility] Medical 00 [place] Depression Depression Disease Active [facility] , , [facility]- [facility] unspecifie unspecifie 00:00: Wi dical d d 00 [place] depression depression type type Acute Acute Disease Recurre [facility] ischemic ischemic nce 8[facility]15 [facility] stroke stroke 00:00: [facility] 00 Center Allergies, Adverse Reactions, Alerts Allergy Allergy Status Severity Reaction(s) Onset Inactive Treating Comm ents Source Name Type Date Date Clinician NO KNOWN Drug Active Univers ALLERGIE Class ity of S [facility] [place] [place] Family History Family Member Diagnosis Comments Start Date Stop Date Source Natural mother Diabetes [facility] Social History Social Habit Start Date Stop Date Quantity Comments Source Exposure to 2022-07-04 2022-07-14 Not sure [facility] SARS-CoV-2 00:00:00 07:42:00 [facility] (event) Branch Tobacco use and 2022-07-14 2022-07-14 Smokeless tobacco Un iversity of exposure 00:00:00 00:00:00 non-user [facility] [place] Alcohol intake 2022-07-14 2022-07-14 Ex-drinker [facility] 00:00:00 00:00:00 (finding) [facility] [place] Sex Assigned At [address] Yeni kes 00:00:00 00:00:00 [facility] Smoking Status Start Date Stop Date Source Never smoked tobacco [facility] Medications Ordered Filled Start Stop Current Ordering Indication Dosage Frequency Signature Comments Components Source Medication Medication Date Date Medication? Clinician (SIG) Name Name busPIRone 5 2021-0 Yes [id number] 5mg Take 1 Univers mg tablet 8-25 tablet by ity o f 00:00: mouth in [place] 00 the Medical morning Branch and 1 tablet in the evening. busPIRone 5 2021-0 Yes [id number] 5mg Take 1 Univers mg tablet 8-25 tablet by ity o f 00:00: mouth in [place] 00 the Medical morning Branch and 1 tablet in the evening. busPIRone 5 2021-0 Yes [id number] 5mg Take 1 Univers mg tablet 8-25 tablet by ity o f 00:00: mouth in [place] 00 the Medical morning Branch and 1 tablet in the evening. busPIRone 5 2021-0 Yes [id number] 5mg Take 1 Univers mg tablet 8-25 tablet by ity o f 00:00: mouth in [place] 00 the Medical morning Branch and 1 tablet in the evening. busPIRone 5 0 Yes [id number] 5mg Take 1 Univers mg tablet 8-25 tablet by ity o f 00:00: mouth in [place] 00 the Medical morning Branch and 1 tablet in the evening. busPIRone 5 2021-0 Yes [id number] 5mg Take 1 Univers mg tablet 8-25 tablet by ity o f 00:00: mouth in [place] 00 the Medical morning Branch and 1 tablet in the evening. Immunizations Ordered Filled Immunization Date Status Comments [facility] Immunization Name Name SARS-COV-2 COVID-19 2021-11-09 Completed Unive rsity of MODERNA 0.25ML 00:00:00 [place] Medi tang BOOSTER VACCINE Branch SARS-COV-2 COVID-19 2021-11-09 Completed Unive rsity of MODERNA 0.25ML 00:00:00 [place] Medi tang BOOSTER VACCINE Branch SARS-COV-2 COVID-19 2021-11-09 Completed Unive rsity of MODER[place] 0.25ML 00:00:00 [place] Medi tang BOOSTER VACCINE Branch SARS-COV-2 COVID-19 2021-11-09 Completed Unive rsity of MODER[place] 0.25ML 00:00:00 [place] Medi tang BOOSTER VACCINE Branch SARS-COV-2 COVID-19 [...] Unive rsity of MODER[place] VACCINE 00:00:00 [place] [facility] ical Branch Procedures Procedure Date / Time Performed Performing Clinician [facility] e EXTERNAL PROVIDER 2022-08-08 05:01:00 Doctor Unassigned, No Univ [facility] RECORDS Name [facility] Encounters Start End Encounter Admission Attending Care Care Encounter Source Date/Time Date/Time Type Type Clinicians Facility Department ID 2023-01-25 2023-01-25 Case CARLOS Garcia [id number] Univers 00:00:00 00:00:00 Management Rachel GRAY [id number] [place] [id number] [place] [id number] [place] 2022-10-03 2022-10-03 Outpatient R BLANCA, [facility] [id number] Univers 08:00:00 08:00:00 KERRIE dorsey [facility] 2022-09-26 2022-09-26 Outpatient [facility] [id number] Univers 09:40:00 09:40:00 CECILIA dorsey o f [facility] 2022-08-08 2022-08-08 Orders Doctor ANGUIANO [id number] Univers 00:00:00 00:00:00 Only Unassigned, ANH 350.1.13.10 ity of [place] [facility] 4.2.7.2.686 Frederic as [id number] [address] 2022-07-15 2022-07-15 [facility] [id number] Univers 00:00:00 00:00:00 Secure Msg Jeannie Mccartney HEALTH 350.1.13.10 ity of [place] 4.2.7.2.686 Frederic as CATE?BLEA [phone] [address] MEDICAL OFFICE [facility] 2022-07-15 2022-07-15 [facility] [id number] Univers 00:00:00 00:00:00 Secure Msg Jeannie Mccartney HEALTH 350.1.13.10 ity of [place] 4.2.7.2.686 Frederic as CATE?BLEA [id number] [address] OFFICE [facility] 2022-07-15 2022-07-15 Telephone Martinez [facility] [id number] Univers 00:00:00 00:00:00 Cornelia Juan Manuel HEALTH 350.1.13.10 i ty of [place] 4.2.7.2.686 Frederic as CATE?BLEA [phone] [address] MEDICAL OFFICE [facility] 2022-07-14 2022-07-[address] [facility] [id number] Univers 08:00:00 08:53:23 CORNELIA dorsey [facility] 2022-07-14 2022-07-14 [facility] 1.2.840.114 [id number] Univers 08:00:00 08:53:23 Visit Cornelia A HEALTH 350.1.13.10 i ty of [place] 4.2.7.2.686 Frederic as CATE?BLEA [phone] [address] OFFICE [facility] 2022-07-14 2022-07-14 Orders Doctor ANNMARIE [id number] Univers 00:00:00 00:00:00 Only Unassigned, ANH 350.1.13.10 ity of [place] [facility] 4.2.7.2.686 Frederic as [id number] [address] 2022-07-14 2022-07-14 Patient Aj [facility] [id number] Univers 00:00:00 00:00:00 Outreach Kim Newsome HEALTH 350.1.13.10 i ty of [place] 4.2.7.2.686 Frederic as CATE?BLEA [phone] [address] MEDICAL OFFICE [facility] 2022-07-13 2022-07-13 Letter [facility] 1.2.840.114 [id number] Univers 00:00:00 00:00:00 (Out) Cornelia Juan Manuel HEALTH 350.1.13.10 i ty of [place] 4.2.7.2.686 Frederic as CATE?BLEA [id number] [address] OFFICE [facility] 2020-05-27 2020-05-[address] [facility] [id number] Univers 16:40:00 16:40:00 LUISA dorsey [facility] 2020-05-27 2020-05-27 Laboratory Lab, [place] [id number] 16:17:52 16:37:52 Only Preston Balderas I Health 350.1.13.10 [place] 4.2.7.2.686 Professio [phone] nal [address] 2020-05-27 2020-05-27 Laboratory Lab, [facility] Fam Pob [place] 1.2. [id number] [facility] 16:17:52 16:37:52 Only Luisa [facility] 350.1.13.10 ity of [place] 4.2.7.2.686 Frederic as Professio [phone] Me dical [facility] [address] [place] Office [address] One Results Test Description Test Time Test Comments Results Result Sourc e Comments BREAST ULTRASOUND 2019-03-06 - DIAG MAMM BILATERAL BILATERAL 11:11:26 ALAN CAD DIGITALBILATERAL FIRST EVER DIGITAL DIAGNOSTIC MAMMOGRAM 3D/2D WITH CAD: 03/06/2019Digital breast tomosynthesis was performed in addition to routine CC and MLO views. Current mammographic images were evaluated by either a [employer] M-Vu or a [employer] Imagestaila technologiescker CAD (computer aided detection system). No prior [...] - 03/07/2019 12:50:12Imaging Technologist: Nia GOMES, [facility]-FWletter sent: BIRADS 1-2 Combo FU Letter Mammogram BI-RADS: 0 Indeterminate Ultrasound BI-RADS: 2 Benign DIAG MAMM 2019-03-06 - DIAG MAMM BILATERAL BILATERAL ALAN CAD 11:11:26 ALAN CAD DIGITAL DIGITALBILATERAL FIRST EVER DIGITAL DIAGNOSTIC MAMMOGRAM 3D/2D WITH CAD: 03/06/2019Digital breast tomosynthesis was performed in addition to routine CC and MLO views. Current mammographic images were evaluated by either a [employer] M-Vu or a [employer] CAD (computer aided detection system). No prior [...] - 03/07/2019 12:50:12Imaging Technologist: Nia GOMES, [facility]-FWletter sent: BIRADS 1-2 Combo FU [...] screen for Lupus code = 2406) Anticoagulant [id number] (BEAKER) (test Angel Hamilton M.D. (electonic code = 2610) signature) DRVV SCREEN RATIO (BEAKER) (test 0.59 <1.20 code = 8647) Effective 03/25/2014: Test Method ChangeDRVV Screen Ratio, DRVV 1/1 Screen Ratio, DRVV Confirm Ratio,DRVV Normalized Ratio Reference Range: <1.2Protime Reference Range ChangeNew: 11.7-14.7 Previous: 9.8-12.0PTT Reference Range ChangeNew: 22.5-36.0 Previous: 25.8-34.5HEXAGONAL [id number] 12:56:00 Test Item Value Reference Range Interpretation Comments HEXAGONAL PHOSPHOLIPID (BEAKER) Negative (test code = 1790) BASIC METABOLIC [id number] 05:51:00 Test Item Value Reference Range Interpretation [...] PATIEN TS. CBC W/PLT COUNT & AUTO [id number] 05:29:00 Test Item Value Reference Range Interpretation [...] PERCENT (BEAKER) (test code = 2801) SEDIMENTATION [id number] 10:56:00 Test Item Value Reference Range Interpretation Comments SEDIMENTATION RATE, ERYTHROCYTE 21 mm/HR 0-20 H (BEAKER) (test code = 766) CBC W/PLT COUNT & AUTO [id number] 09:30:00 Test Item Value Reference Range Interpretation [...] COUNTED (BEAKER) (test code = 1351) POCT-GLUCOSE [id number] 06:41:00 Test Item Value Reference Range Interpretation Comments POC-GLUCOSE METER 103 mg/dL 70-110 TESTED AT [place] [address] ([facility]) (test code = [facility] 1538) [address] BASIC METABOLIC [id number] 05:21:00 Test Item Value Reference Range Interpretation [...] NOT APPLICABLE FOR DIALYSIS PATIEN TS. POCT-GLUCOSE [id number] 23:38:00 Test Item Value Reference Range Interpretation Comments POC-GLUCOSE METER 84 mg/dL 70-110 TESTED AT [place] [address] ([facility]) (test code = [facility] [address] 1538) POCT-GLUCOSE [id number] 16:02:00 Test Item Value Reference Range Interpretation Comments POC-GLUCOSE METER 80 mg/dL 70-110 TESTED AT [place] [address] ([facility]) (test code = [facility] [address] 1538) ANTI-NUCLEAR ANTIBODY (MEI)2017-07-05 13:36:00 Test Item Value Reference Range Interpretation Comments ANTI-NUCLEAR ANTIBODY (MEI) ([facility]) Negative Negative (test code = 418) CARDIOLIPIN ANTIBODIES, IGG AND [id number] 13:10:00 Test Item Value Reference Range Interpretation Comments ANTICARDIOLIPIN IGG ANTIBODY (AKER) < GPL (test code = 712) ANTICARDIOLIPIN IGM ANTIBODY ([facility]) 0.2 MPL (test code = 713) Anticardiolipin IgG Result Interpretation:NEG: <20 GPL; U/mlPOS: >/=20 GPL; U/mlAnticardiolipin IgM Result Interpretation:NEG: <20 MPL; U/mlPOS: >/=20 MPL; U/mlPOCT-GLUCOSE [id number] 12:20:00 Test Item Value Reference Range Interpretation Comments POC-GLUCOSE METER 76 mg/dL 70-110 TESTED AT [place] [address] ([facility]) (test code = [facility] [address] 1538) [id number] 11:07:00 Test Item Value Reference Range Interpretation Comments RPR SCREEN ([facility]) (test code = Nonreactive Nonreactive 420) RHEUMATOID FACTOR AB, REFLEX TO [id number] 11:03:00 Test Item Value Reference Range Interpretation Comments RHEUMATOID FACTOR ([facility]) (test Negative code = 573) HEMOGLOBIN [id number] 08:35:00 Test Item Value Reference Range Interpretation Comments HEMOGLOBIN A1C 5.0 % 4.3-6.1 POSSIBLE HEMO GLOBIN S ([facility]) (test code = VARIAN T NOTED IN 368) HEMOGLOBIN A1C CHROMATOGRAPH. SUGGEST HEMOGLOBIN ELEC TROPHORESIS IF CLINICALLY I NDICATED. FastingPOCT-GLUCOSE [id number] 08:15:00 Test Item Value Reference Range Interpretation Comments POC-GLUCOSE METER 93 mg/dL 70-110 TESTED AT [place] [address] ([facility]) (test code = [facility] [address] 1538) TSH/FREE T4 IF [id number] 06:26:00 Test Item Value Reference Range Interpretation Comments THYROID STIMULATING HORMONE 3.65 uIU/mL 0.35-4.94 ([facility]) (test code = 772) VITAMIN B12 AND [id number] 06:26:00 Test Item Value Reference Range Interpretation Comments VITAMIN B12 (BEAKER) (test code = 726 pg/mL 213-816 774) FOLATE (BEAKER) (test code = 362) 12.3 ng/mL >=7.0 Effective 10/07/2014: Folate Reference Range ChangeNew: >=7.0 Previous: >=5.4LIPID [id number] 05:56:00 Test Item Value Reference Range Interpretation [...] High 160-189 Very High >=190 FastingBASIC METABOLIC [id number] 05:56:00 Test Item Value Reference Range Interpretation [...] APPLICABLE FOR DIALYSIS PATIEN TS. FastingHEPATIC FUNCTION [id number] 05:56:00 Test Item Value Reference Range Interpretation [...] 6-55 347) FastingCREATINE KINASE (CK), TOTAL AND [id number] 05:56:00 Test Item Value Reference Range Interpretation Comments CREATINE KINASE TOTAL (BEAKER) 100 U/L 29-200 (test code = 380) CREATINE KINASE-MB (BEAKER) (test 0.4 ng/mL 0.0-6.6 code = 750) CREATINE KINASE-MB INDEX (BEAKER) 0.4 % (test code = 395) Effective 10/07/2014: CK-MB Reference Range ChangeNew: 0.0-6.6 Previous: 0.0-4.9CK-MB Reference Range:<6.7 Normal6.7-10.0 Borderline>10.0 AbnormalFastingFastingTROPONIN [id number] 05:54:00 Test Item Value Reference Range Interpretation [...] and persistent tachyarrhythmia.FastingCBC W/PLT COUNT & AUTO [id number] 05:44:00 Test Item Value Reference Range Interpretation [...] PERCENT (BEAKER) (test code = 2801) PROTHROMBIN [id number] 05:40:00 Test Item Value Reference Range Interpretation Comments PROTIME (BEAKER) (test code = 14.3 seconds 11.7-14.7 759) INR (BEAKER) (test code = 370) 1.1 <=5.9 RECOMMENDED COUMADIN/WARFARIN INR THERAPY RANGESSTANDARD DOSE: 2.0 - 3.0 Includes: PROPHYLAXIS for venous thrombosis, systemic embolization; TREATMENT for venous thrombosis and/or pulmonary embolus.HIGH RISK: Target INR is 2.5-3.5 for patients with mechanical heart valves.POCT-GLUCOSE [id number] 22:44:00 Test Item Value Reference Range Interpretation Comments POC-GLUCOSE METER 82 mg/dL 70-110 TESTED AT [facility] 6720 (BEAKER) (test code = [facility] [address] 1538) RAPID DRUG SCREEN, [id number] 20:39:00 Test Item Value Reference Range Interpretation [...] situations. Chain of custody not maintained. Some pgks-xsw-hdrmuvo medications, as well as adulterants, may cause inaccurate results. Clinical correlation should be applied. A more comprehensive drug screen or confirmation of a detected drug may be performed upon request. URINALYSIS W/ [id number] 18:36:00 Test Item Value Reference Range Interpretation [...] 516) SOURCE(BEAKER) (test code = Urine, Voided 9294)
--- NOTE | 2023-06-28 21:59 | RAD REPORT ---
EXAM DESCRIPTION: RAD - Chest Single View - 06/28/2023 9:53 pm CLINICAL HISTORY: CHEST PAIN COMPARISON: Chest Single View dated 07/04/2017 FINDINGS: Lines: None. Lungs: No evidence of edema or pneumonia. Pleural: No significant pleural effusions or pneumothorax. Cardiac: The heart size is within normal limits. Mediastinum: Within normal limits. Bones: No acute fractures. Other: None IMPRESSION: No acute cardiopulmonary disease.
[2023-06-28 22:22] LABS: Hematocrit 35.7 % (36.0-45.0); Lymphocytes % 33.4 % (15.3-44.8); MCV 89.9 fL (80-100); MPV 7.9 fL (7.6-11.3); Platelets 278 thou/uL (152-406); RBC Red Blood Cell Count 3.98 M/uL (3.86-4.86)
[2023-06-28] MEDS ORDERED: ASPIRIN 81 MG CHEWABLE TABLET ONE (22:22)
[2023-06-28] MEDS ORDERED: NITROGLYCERIN 0.4 MG/TAB SL ONE (22:23)
[2023-06-28] MEDS ORDERED: NA CHLORIDE 0.9% 1,000 ML ONE (22:23)
[2023-06-28 22:31] LABS: Albumin 3.3 g/dL (3.4-5.0); Bilirubin Direct 0.1 mg/dL (0-0.2); Bilirubin Indirect, Calculated 0.2 mg/dL (0.2-0.8); Bilirubin Total 0.3 mg/dL (0.2-1.0); Potassium 3.6 mEq/L (3.5-5.1); Protein, Total 7.1 g/dL (6.4-8.2)
[2023-06-28] MEDS ORDERED: DIAZEPAM 10 MG/2 ML INJ SYRINGE ONE (23:25)
[2023-06-28] MEDS ORDERED: KETOROLAC 30 MG/ML INJ ONE (23:25)
[2023-06-29 00:10] LABS: Specific Gravity 1.011 (1.005-1.030)
[2023-06-29] MEDS ORDERED: MORPHINE 2 MG/ML SYR ONE (00:11)
[2023-06-29 00:26] LABS: Urine Bacteria <20 /HPF (<20); Urine Mucus Slight /HPF (None Seen); Urine RBC None Seen /HPF (None Seen)
--- NOTE | 2023-06-29 01:14 | EDPHYS ---
Physician Documentation [facility] Name: Marianna Phillips Age: 43 yrs Sex: Female : 1980 Arrival Date: 06/28/2023 Time: 21:32 Bed 19 Private MD: ED Physician Paolo Reed HPI: 06/28 21:47 This 43 yrs old Black Female presents to ER via Ambulatory with complaints of Chest cp Pain. 21:47 The patient or guardian reports chest pain that is located primarily in the anterior cp chest wall, left. 21:47 Onset: today, about 1500. The pain radiates to the left arm, left neck, left jaw. cp Associated signs and symptoms: Pertinent positives: shortness of breath, Pertinent negatives: abdominal pain, diaphoresis, dizziness, lower extremity pain, lower extremity swelling, syncope. The chest pain is described as constant. Duration: The patient or guardian reports a single episode, that is still ongoing. Historical: - Allergies: 21:36 No Known Allergies; ll3 - Home Meds: 21:36 None [Active]; ll3 - PMHx: 21:36 CVA; Panic Attacks; ll3 - PSHx: 21:36 None; ll3 - Immunization history:: Client reports receiving the 2nd dose of the Covid vaccine. - Social history:: Smoking status: Patient denies any tobacco usage or history of. ROS: 21:50 Constitutional: Negative for body aches, chills, fever, poor PO intake. cp 21:50 Eyes: Negative for injury, pain, redness, and discharge. cp 21:50 ENT: Negative for drainage from ear(s), ear pain, sore throat, difficulty swallowing, difficulty handling secretions. 21:50 Neck: Negative for pain with movement, pain at rest, stiffness. 21:50 Cardiovascular: Positive for chest pain, of the left side of chest, Negative for edema, palpitations. 21:50 Respiratory: Positive for shortness of breath, Negative for cough, wheezing. 21:50 Abdomen/GI: Negative for abdominal pain, vomiting, diarrhea, constipation. 21:50 Back: Negative for radiated pain. 21:50 Skin: Negative for rash. 21:50 Neuro: Negative for altered mental status, dizziness, headache, numbness, weakness. 21:50 All other systems are negative. Exam: 21:55 Constitutional: The patient appears in no acute distress, alert, awake, cp non-diaphoretic, non-toxic, well developed, well nourished, uncomfortable. 21:55 Head/Face: Normocephalic, atraumatic. cp 21:55 Eyes: Periorbital structures: appear normal, Conjunctiva: normal, no exudate, no injection, Sclera: no appreciated abnormality, Lids and lashes: appear normal, bilaterally. 21:55 ENT: External ear(s): are unremarkable, Nose: is normal, Mouth: Lips: moist, Oral mucosa: pink and intact, moist, Posterior pharynx: is normal, airway is patent, no erythema, no exudate. 21:55 Neck: ROM/movement: is normal, is supple, no range of motions limitations, no meningismus, no nuchal rigidity. 21:55 Chest/axilla: Inspection: normal. 21:55 Cardiovascular: Rate: normal, Rhythm: regular, Heart sounds: murmur, not appreciated, Edema: is not appreciated, JVD: is not appreciated. 21:55 Respiratory: the patient does not display signs of respiratory distress, Respirations: normal, no use of accessory muscles, no retractions, labored breathing, is not present, Breath sounds: are clear throughout, no decreased breath sounds, no stridor, no wheezing. 21:55 Abdomen/GI: Inspection: abdomen appears normal, Palpation: abdomen is soft and non-tender, in all quadrants. 21:55 Back: pain, is absent, ROM is normal. 21:55 Skin: no rash present. 21:55 Neuro: Orientation: to person, place \T\ time. Mentation: is normal, Motor: moves all fours, strength is normal, Sensation: no obvious gross deficits. 21:59 ECG was reviewed by the Attending Physician. cp 06/29 00:00 ECG was reviewed by the Attending Physician. cp Vital Signs: 06/28 21:34 BP 137 / 91; Pulse 77; Resp 16; Temp 98.7(O); Pulse Ox 100% on R/A; Weight 64.41 kg ll3 (R); Height 5 ft. 3 in. (R); Pain 10/10; 22:15 BP 134 / 95; Pulse 74; Resp 15; Pulse Ox 100% on R/A; ll3 22:51 BP 128 / 90; Pulse 74; Resp 18; Pulse Ox 100% on R/A; ll3 06/29 00:44 BP 120 / 90; Pulse 77; Resp 18; Pulse Ox 98% on R/A; ll3 00:47 Pain 2/10; ll3 03:30 BP 111 / 76; Pulse 63; Resp 18; Pulse Ox 99% on R/A; ll3 06/28 21:34 Body Mass Index 25.15 (64.41 kg, 160.02 cm) ll3 06/28 21:34 Pain Scale: Adult ll3 00:47 Pain Scale: Adult ll3 MDM: 06/28 21:48 Patient medically screened. cp 22:00 Differential diagnosis: abnormal EKG, acute myocardial infarction, acute pericarditis, cp anxiety, pericarditis, pleurisy, pneumonia, pneumothorax, pulmonary embolus, stable angina, thoracic aortic disection, unstable angina. 06/29 01:05 The patient was given aspirin in the Emergency Department. cp 01:05 Data reviewed: vital signs, nurses notes, lab test result(s), EKG, radiologic studies, cp CT scan, plain films. Consideration of Admission/Observation Patient was admitted/placed on observation. Management of patient was discussed with the following: Hospitalist: Ailyn Cho NP will admit after discussion of today's results. I considered the following discharge prescriptions or medication management in the emergency department Medications were administered in the Emergency Department. See MAR. Counseling: I had a detailed discussion with the patient and/or guardian regarding: the historical points, exam findings, and any diagnostic results supporting the discharge/admit diagnosis, lab results, radiology results. Response to treatment: the patient's symptoms have markedly improved after treatment. 06/28 21:43 Order name: Basic Metabolic Panel; Complete Time: 22:54 mb9 06/28 22:54 Interpretation: Normal except: CL 108; BUN 6; GFR 76. cp 06/28 21:43 Order name: CBC with Diff; Complete Time: 22:54 mb9 06/28 22:54 Interpretation: Normal except: HGB 11.6; HCT 35.7. cp 06/28 21:43 Order name: Troponin HS; Complete Time: 22:54 mb9 06/28 22:21 Order name: Liver (Hepatic) Function; Complete Time: 22:54 EDMS 08/09 22:54 Interpretation: Normal except: AST 12; ALB 3.3; GLOB 3.8; A/G 0.9. cp 06/28 22:21 Order name: NT PRO-BNP; Complete Time: 22:54 EDMS 06/28 22:57 Order name: Urine Microscopic Only; Complete Time: 00:42 cp 06/29 00:42 Interpretation: Normal except: REEP 5-10. cp 06/28 22:57 Order name: PREGU; Complete Time: 00:42 cp 06/29 02:18 Order name: Urinalysis w/ reflexes EDMS 06/29 02:18 Order name: Basic Metabolic Panel EDMS 06/29 02:18 Order name: Basic Metabolic Panel EDMS 06/29 02:18 Order name: CBC with Automated Diff EDMS 06/29 02:18 Order name: CBC with Automated Diff EDMS 06/29 02:18 Order name: Magnesium EDMS 06/29 02:18 Order name: Magnesium EDMS 06/29 02:18 Order name: Troponin High Sensitivity EDMS 06/29 02:18 Order name: Troponin High Sensitivity EDMS 06/28 21:43 Order name: XRAY Chest (1 view); Complete Time: 22:54 mb9 06/28 22:55 Order name: CT Chest Angio cp 06/28 21:43 Order name: EKG; Complete Time: 21:43 mb9 06/29 02:18 Order name: NPO EDMS 06/28 21:43 Order name: Cardiac monitoring; Complete Time: 21:57 mb9 06/28 21:43 Order name: EKG - Nurse/Tech; Complete Time: 21:57 mb9 06/28 21:43 Order name: IV Saline Lock; Complete Time: 22:06 mb9 06/28 21:43 Order name: Labs collected and sent; Complete Time: 22:06 mb9 06/28 21:43 Order name: O2 Per Protocol; Complete Time: 21:57 mb9 06/28 21:43 Order name: O2 Sat Monitoring; Complete Time: 21:57 mb9 EC/09 21:59 Rate is 72 beats/min. Rhythm is regular. VA interval is normal. QRS interval is normal. cp QT interval is normal. T waves are Inverted in lead aVR. Interpreted by me. Reviewed by me. 06/29 00:00 Rate is 71 beats/min. Rhythm is regular. VA interval is normal. QRS interval is normal. cp QT interval is normal. T waves are Inverted in lead aVR. Interpreted by me. Reviewed by me. Administered Medications: 06/28 22:19 Drug: NS 0.9% IV 500 ml Route: IV; Rate: 125 ml/hr; Site: right antecubital; ll3 22:19 Drug: Aspirin PO Chewable Tablet 324 mg Route: PO; ll3 22:50 Follow up: Response: No adverse reaction ll3 22:20 Drug: Nitroglycerin Sublingual 0.4 mg Route: Sublingual; ll3 22:48 Follow up: Response: No adverse reaction; No change in condition ll3 22:47 Drug: NS 0.9% IV 500 ml Route: IV; Rate: bolus; Site: right antecubital; ll3 23:12 Not Given (Physician Discretion): Ketorolac PO 10 mg PO once cp 23:22 Drug: Diazepam IVP 5 mg Route: IVP; Site: right antecubital; ll3 06/29 00:47 Follow up: Response: No adverse reaction; Marked relief of symptoms ll3 06/28 23:22 Drug: Ketorolac IVP 10 mg 10 mg Route: IVP; Site: right antecubital; ll3 08 00:47 Follow up: Response: No adverse reaction; Marked relief of symptoms ll3 00:03 Drug: morphine IVP or IV 2 mg Route: IVP; Infused Over: 4 mins; Site: right antecubital;ll3 00:47 Follow up: Pain 2/10 Adult; Response: No adverse reaction; Marked relief of symptoms; ll3 Pain is decreased Disposition Summary: 06/29/23 01:13 Hospitalization Ordered Hospitalization Status: Observation cp Provider: Ailyn Cho cp Location: Telemetry/MedSurg (observation) cp Condition: Stable cp Problem: new cp Symptoms: have improved cp Bed/Room Type: Standard cp Room Assignment: 409(06/29/23 02:33) cg Diagnosis - Chest pain, unspecified cp Forms: - Medication Reconciliation Form cp - SBAR form cp Signatures: Dispatcher [employer] EDMS Paolo Gasca PA PA cp Venus Anthony RN RN Tyrone Wise RN RN ll3 Jeanne Villalba RN RN mb9 Corrections: (The following items were deleted from the chart) 06/28 22:19 22:08 PROBNP+C.LAB.BRZ ordered. EDMS EDMS 22:19 22:08 HEPATIC FUNCTION+C.LAB.BRZ ordered. EDMS EDMS 06/29 02:33 01:13 cp cg 06/30 03:17 02:01 This 43 yrs old Black Female presents to ER via Ambulatory with complaints of cp Chest Pain. cp 03:17 03:15 The patient or guardian reports chest pain that is located primarily in the cp anterior chest wall, left, cp
--- NOTE | 2023-06-29 01:14 | ER ---
Nurse's Notes [facility] Name: Marianna Phillips Age: 43 yrs Sex: Female : 1980 Arrival Date: 06/28/2023 Time: 21:32 Bed 19 Private MD: Diagnosis: Chest pain, unspecified Presentation: 06/28 21:34 Chief complaint: Patient states: C/o chest pressure and tingling to left arm, states ll3 symptoms began at 3 pm today. Coronavirus screen: Vaccine status: Patient reports receiving the 2nd dose of the covid vaccine. At this time, the client does not indicate any symptoms associated with coronavirus-19. Ebola Screen: No symptoms or risks identified at this time. Initial Sepsis Screen: Does the patient meet any 2 criteria? No. Patient's initial sepsis screen is negative. Does the patient have a suspected source of infection? No. Patient's initial sepsis screen is negative. Risk Assessment: Do you want to hurt yourself or someone else? Patient reports no desire to harm self or others. Onset of symptoms was June 28, 2023 at 15:00. 21:34 Method Of Arrival: Ambulatory ll3 21:34 Acuity: YUNIOR 2 ll3 Triage Assessment: 21:36 General: Appears uncomfortable, Behavior is calm, cooperative. Pain: Complains of pain ll3 in chest Pain does not radiate. Neuro: Reports numbness in left arm. Cardiovascular: Reports chest pain, Patient's skin is warm and dry. Rhythm is sinus rhythm Chest pain is described as mild, quality is pressure, is located in left anterior chest wall began 3 pm episodes are continuous. Respiratory: Respiratory effort is even, unlabored, Respiratory pattern is regular, symmetrical. Derm: Skin is pink, warm \T\ dry. Historical: - Allergies: 21:36 No Known Allergies; ll3 - Home Meds: 21:36 None [Active]; ll3 - PMHx: 21:36 CVA; Panic Attacks; ll3 - PSHx: 21:36 None; ll3 - Immunization history:: Client reports receiving the 2nd dose of the Covid vaccine. - Social history:: Smoking status: Patient denies any tobacco usage or history of. Screenin:51 [facility] ED Fall Risk Assessment (Adult) History of falling in the last 3 months, ll3 including since admission No falls in past 3 months (0 pts) Confusion or Disorientation No (0 pts) Intoxicated or Sedated No (0 pts) Impaired Gait No (0 pts) Mobility Assist Device Used No (0 pt) Altered Elimination No (0 pt) Score/Fall Risk Level 0 - 2 = Low Risk Oriented to surroundings, Maintained a safe environment, Educated pt \T\ family on fall prevention, incl call for assistance when getting out of bed. Abuse screen: Denies threats or abuse. Denies injuries from another. Nutritional screening: No deficits noted. Tuberculosis screening: No symptoms or risk factors identified. Assessment: 21:36 General: See triage assessment. ll3 22:49 Reassessment: C/o muscle spasms in chest and left arm, HAKEEM Breaux notified. ll3 Vital Signs: 21:34 BP 137 / 91; Pulse 77; Resp 16; Temp 98.7(O); Pulse Ox 100% on R/A; Weight 64.41 kg ll3 (R); Height 5 ft. 3 in. (R); Pain 10/10; 22:15 BP 134 / 95; Pulse 74; Resp 15; Pulse Ox 100% on R/A; ll3 22:51 BP 128 / 90; Pulse 74; Resp 18; Pulse Ox 100% on R/A; ll3 08/10 00:44 BP 120 / 90; Pulse 77; Resp 18; Pulse Ox 98% on R/A; ll3 00:47 Pain 2/10; ll3 03:30 BP 111 / 76; Pulse 63; Resp 18; Pulse Ox 99% on R/A; ll3 08/ 21:34 Body Mass Index 25.15 (64.41 kg, 160.02 cm) ll3 08/ 21:34 Pain Scale: Adult ll3 00:47 Pain Scale: Adult ll3 ED Course: 06/28 21:34 Patient arrived in ED. ll3 21:36 Triage completed. ll3 21:36 Arm band placed on Patient placed in an exam room, on a stretcher, on monitor and storage bin tender, ll3 on pulse oximetry. 21:48 Paolo Gasca PA is PHCP. cp 21:48 Paolo Reed MD is Attending Physician. cp 21:55 XRAY Chest (1 view) In Process Unspecified. EDMS 22:06 Initial lab(s) drawn, by me, sent to lab. Inserted saline lock: 20 gauge in right ll3 antecubital area, using aseptic technique. Blood collected. 22:51 Patient has correct armband on for positive identification. Bed in low position. Call ll3 light in reach. Side rails up X 1. Adult w/ patient. 22:51 No provider procedures requiring assistance completed. ll3 23:44 CT Chest Angio In Process Unspecified. EDKY 06/29 01:12 Ailyn Cho is Hospitalizing Provider. cp 04:08 Patient admitted, IV remains in place. ll3 Administered Medications: 06/28 22:19 Drug: NS 0.9% IV 500 ml Route: IV; Rate: 125 ml/hr; Site: right antecubital; ll3 22:19 Drug: Aspirin PO Chewable Tablet 324 mg Route: PO; ll3 22:50 Follow up: Response: No adverse reaction ll3 22:20 Drug: Nitroglycerin Sublingual 0.4 mg Route: Sublingual; ll3 22:48 Follow up: Response: No adverse reaction; No change in condition ll3 22:47 Drug: NS 0.9% IV 500 ml Route: IV; Rate: bolus; Site: right antecubital; ll3 23:12 Not Given (Physician Discretion): Ketorolac PO 10 mg PO once cp 23:22 Drug: Diazepam IVP 5 mg Route: IVP; Site: right antecubital; ll3 06/29 00:47 Follow up: Response: No adverse reaction; Marked relief of symptoms ll3 06/28 23:22 Drug: Ketorolac IVP 10 mg 10 mg Route: IVP; Site: right antecubital; ll3 06/29 00:47 Follow up: Response: No adverse reaction; Marked relief of symptoms ll3 00:03 Drug: morphine IVP or IV 2 mg Route: IVP; Infused Over: 4 mins; Site: right antecubital;ll3 00:47 Follow up: Pain 12/30 Adult; Response: No adverse reaction; Marked relief of symptoms; ll3 Pain is decreased Medication: 06/28 22:51 VIS not applicable for this client. ll3 Outcome: 06/29 01:13 Decision to Hospitalize by Provider. cp 04:08 Admitted to Tele accompanied by tech, via wheelchair, room 409, with chart, Report ll3 called to SHARIF Fuentes 04:08 Condition: stable 04:08 Discharge instructions given to patient, family, Instructed on the need for admit, Demonstrated understanding of instructions. 04:09 Patient left the ED. ll3 Signatures: Dispatcher [employer] EDMS Paolo Gasca PA PA cp Loubet, Lynsea, RN RN ll3
--- NOTE | 2023-06-29 02:11 | P.HP ---
Certification for Inpatient Patient admitted to: Observation With expected LOS: <2 Midnights Patient will require the following post-hospital care: None Practitioner: I am a practitioner with admitting privileges, knowledge of patient current condition, hospital course, and medical plan of care. Services: Services provided to patient in accordance with Admission requirements found in Title 42 Section 412.3 of the Code of Federal Regulations Patient History Date of Service: 06/29/23 Reason for admission: chest pain History of Present Illness: 43-year-old -Citizen Of [place] female past medical history of CVA, anxiety, presents to the emergency room for chest pain. She reports chest pain is substernal radiating to her neck. Started today, at rest. Currently chest pain is resolved. She denies nausea vomiting, cough, shortness of breath, edema, dizziness. Plan to admit for chest pain, laboratory evaluation troponin normal at 12.0, BNP normal 31, CBC mild anemia hemoglobin 11.6, 35.7, UA normal, CT of the chest, thorax completed, pending report Allergies No Known Allergies Allergy (Unverified 06/29/23 02:36) - Past Medical/Surgical History -: CVA -: Anxiety -: Tubal - Social History Smoking Status: Never smoker Alcohol use: No CD- Drugs: No Caffeine use: No Review of Systems 10-point ROS is otherwise unremarkable Physical Examination - Physical Exam General: Alert, In no apparent distress, Oriented x3 HEENT: Atraumatic, Normocephalic Neck: Supple, 2+ carotid pulse no bruit, JVD not distended Respiratory: Clear to auscultation bilaterally, Normal air movement Cardiovascular: No edema, Normal pulses, Regular rate/rhythm Capillary refill: <2 Seconds Gastrointestinal: Normal bowel sounds, Soft and benign Musculoskeletal: No clubbing, No swelling Neurological: Normal speech, Normal strength at 5/5 x4 extr, Cranial nerves 3-12 intact - Studies Laboratory Data (last 24 hrs) 06/28/23 06/28/23 06/28/23 22:07 22:04 22:04 WBC 6.10 Hgb 11.6 L Hct 35.7 L Plt Count 278 Sodium 141 Potassium 3.6 BUN 6 L Creatinine 0.95 Glucose 94 Total Bilirubin Cancelled 0.3 AST Cancelled 12 L ALT Cancelled 16 Alkaline Phosphatase Cancelled 71 Assessment and Plan - Plan Assessment plan Chest pain rule out NE Anxiety History of a CVA Lipid panel, aspirin, antihyperlipidemic, as needed nitro Assessment plan Chest pain rule out NE Trend troponin, telemetry Initial troponin normal Cardiology consult Anxiety History of a CVA Resume appropriate home medications Diet n.p.o. Full code DVT Lovenox Discharge Plan: Home Plan to discharge in: 24 Hours - Advance Directives Does patient have a Living Will: No Does patient have a Durable POA for Healthcare: No - Code Status/Comfort Care Code Status: Full Code Physician Review: Patient Assessed, Agree with Above Assessment and Plan Critical Care: No Time Spent Managing Pts Care (In Minutes): 50
[2023-06-29] MEDS ORDERED: ONDANSETRON 4 MG/2 ML VIAL IV PRN (02:17)
[2023-06-29] MEDS ORDERED: NITROGLYCERIN 0.4 MG/TAB SL PRN (04:27)
[2023-06-29] MEDS ORDERED: KETOROLAC 30 MG/ML INJ IV ONE (05:58)
[2023-06-29] MEDS ORDERED: POTASSIUM CL SA 10 MEQ TAB PO ONE (07:31)
[2023-06-29 08:02] VITALS: BMI 25.5
[2023-06-29] MEDS: ENOXAPARIN 40 MG/0.4 ML SQ SCH (08:07)
--- NOTE | 2023-06-29 14:11 | EKG ---
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
--- NOTE | 2023-06-29 14:12 | EKG ---
Test Date: 2023-06-28 Test Time: 21:54:20 Assistant Distribution Manager: LL MEASUREMENT RESULTS: Intervals: Rate: 72 FL: 132 QRSD: 76 QT: 370 QTc: 405 [place]: P: 62 FL: 132 QRS: 74 T: 61 INTERPRETIVE STATEMENTS: Normal sinus rhythm Normal ECG Compared to ECG 07/04/2017 12:28:19 No significant changes Electronically Signed On 06-29-23 14:10:26 CDT by Rafael Golden
[2023-06-29] MEDS: ASPIRIN 325 MG TAB PO SCH (14:43)
--- NOTE | 2023-06-29 15:00 | CON ---
Date of Consultation: 06/29/2023 Reason For Consultation: Chest pain. History Of Present Illness: A 43-year-old female with history of CVA, anxiety, presented to the [facility] room. Chest pain, sharp and radiates to the arms, no radiation to the neck, not related to exe rtion. She was sitting, watching TV and she was put in for observation, no further episodes were not ed. Past Medical History: As outlined above in the HPI. Medications: Refer to reconciliation sheet for detailed list. Allergies: NO KNOWN DRUG ALLERGIES. Family History: No premature coronary artery disease or cancer. Social History: Does not smoke or drink. Does not use any drugs. Review of Systems: All systems reviewed and they were negative except what mentioned in HPI. Physical Examination: Vital Signs: Reviewed. Head and Neck: Pupils are equal, reactive to light. Intact eye movements. No JVD. No cervical lym phadenopathy. Neck is supple. Thyroid is not enlarged. Lungs: Clear to auscultation bilaterally. No rhonchi, wheezing, or crackles. No accessory muscle u se. Heart: Regular rate and rhythm. No extra sounds. Abdomen: Soft, nontender. Bowel sounds positive. No organomegaly. No masses or hernia. No rigidi ty or rebound. Extremities: No edema, clubbing, or cyanosis. Intact pulses. Skin: No rash. Neurologic: Alert, awake, oriented x3. No acute focal deficits appreciated. Investigations: BUN 6, creatinine 0.95, and hemoglobin is 11.6. Assessment And Recommendations: Chest pain. Cardiac enzymes are negative. I recommend a treadmill exercise nuclear stress test to further evaluate. SR/MODL Voice ID: [id number] Report ID: [id number]
--- NOTE | 2023-06-29 16:56 | P.PN ---
Date of Service: 06/29/23 Patient seen and examined. She reported intermittent left arm pain. Troponin trended negative Seen by cardiology Dr. Golden. Treadmill with nuclear imaging recommended. Continue aspirin and Lipitor. Add low-dose metoprolol NTG as needed for chest pain.
--- NOTE | 2023-06-29 17:29 | RAD REPORT ---
EXAM DESCRIPTION: Chest Angio CLINICAL HISTORY: CHEST PAIN COMPARISON: Report from single view chest 06/28/2023. Images are not available at time of dictation fo r direct comparison. TECHNIQUE: CTA of the chest obtained following the administration of IV contrast. 3-D/MIP reformatte d images of the chest available for evaluation. This exam was performed according to our departmental dose-optimization program, which includes automated exposure control, adjustment of the mA and/or kV according to patient size and/or use of iterative reconstruction technique. FINDINGS: Chest: Pulmonary arteries: Contrast bolus is adequate. No filling defects identified in the pulmonary arteri es to suggest pulmonary embolus. Thyroid gland: No abnormalities of the visualized thyroid gland. Great Vessels: Great vessels have normal anatomic configuration. Thoracic Aorta: No aneurysm. No visualized dissection. Heart: No pericardial effusion. No significant coronary artery calcifications. Lymph Nodes: No enlarged mediastinal, hilar, or axillary lymph nodes identified. Esophagus: No abnormalities of the esophagus identified. Other: No additional findings. Lungs: Bilateral dependent atelectasis. Pleura: No pleural effusion or pneumothorax. Trachea/Airways: No abnormalities of the visualized trachea or airways. Bones: No destructive osseous lesions. Upper Abdomen: Limited images of the upper abdomen demonstrate no acute abnormality. IMPRESSION: No pulmonary embolism identified. Electronically signed by: Kiara Garcia MD 06/29/2023 12:49 AM CDT Due to temporary technical issues with the PACS/Fluency reporting system, reports are being signed by the in house radiologists without review as a courtesy to insure prompt reporting. The interpreting radiologist is fully responsible for the content of the report.
[2023-06-29] MEDS ORDERED: MORPHINE 2 MG/ML SYR IV PRN (17:59)
[2023-06-29] MEDS: METOPROLOL TAR 25 MG TAB PO SCH ×2 (18:00→18:16)
--- NOTE | 2023-06-29 19:04 | RAD REPORT ---
EXAM DESCRIPTION: CT - Ct Stroke Brain Wo Cont - 06/29/2023 6:45 pm CLINICAL HISTORY: Stroke Protocol COMPARISON: Ct Stroke Brain Wo Cont dated 07/04/2017 TECHNIQUE: Noncontrast head CT images were obtained without IV contrast. Multiplanar reformats were generated and reviewed. All CT scans are performed using dose optimization technique as appropriate and may include automated exposure control or mA/KV adjustment according to patient size. FINDINGS: No intracranial hemorrhage, mass, or edema. Midline structures are unremarkable. Normal ventricular caliber for age. Srinivasan-white matter differentiation is preserved, without evidence of acute infarct. No abnormal extra- axial fluid collections. Mastoid air cells and visualized portions of the paranasal sinuses are clear. No acute bony findings. IMPRESSION: No evidence of an acute intracranial process. The findings were communicated to Ailyn Cho on 06/29/2023 at 19:01 hours.
--- NOTE | 2023-06-29 19:27 | RAD REPORT ---
EXAM DESCRIPTION: CT - Neck Angio - 06/29/2023 6:48 pm CLINICAL HISTORY: CVA COMPARISON: Head angio dated 06/29/2023; Ct Stroke Brain Wo Cont dated 06/29/2023 TECHNIQUE: Axial CT angiography images of the head was performed with multiplanar and maximum intens ity projection reconstructions. Images performed following intravenous administration of 100mL Isovue 350. All CT scans are performed using dose optimization technique as appropriate and may include automated exposure control or mA/KV adjustment according to patient size. Quantification of carotid stenosis, if any, is performed according to NASCET criteria. FINDINGS: A left aortic arch is identified with normal three vessel configuration of the great vesse ls. No significant flow abnormality is seen of the common carotid bilaterally. No significant stenosis is identified involving the cervical segments of both internal carotid arteri es. Normal flow is seen within both vertebral arteries. Please note the dense venous contrast results in streak artifact which limits evaluation of the mid right P1 segment as well as a portion of the prox imal right CCA peak IMPRESSION: No significant flow abnormality of the neck vessels is identified. CAROTID STENOSIS REFERENCE USING NASCET CRITERIA: % ICA stenosis = (1 - narrowest ICA diameter/diameter of distal cervical ICA) x 100. Mild - <50% stenosis. Moderate - 50-69% stenosis. Severe - 70-94% stenosis. Near occlusion - 95-99% stenosis. Occluded - 100% stenosis.
--- NOTE | 2023-06-29 19:27 | RAD REPORT ---
EXAM DESCRIPTION: CT - Head angio - 06/29/2023 6:48 pm CLINICAL HISTORY: CVA COMPARISON: Ct Stroke Brain Wo Cont dated 06/29/2023; Ct Stroke Brain Wo Cont dated 07/04/2017; Neck A ngio dated 06/29/2023 TECHNIQUE: Axial CT angiography images of the head was performed with multiplanar and maximum intens ity projection reconstructions. Images performed following intravenous administration of 100mL Isovue 350. All CT scans are performed using dose optimization technique as appropriate and may include automated exposure control or mA/KV adjustment according to patient size. FINDINGS: No evidence of large vessel occlusion. No evidence of aneurysm or dissection flap is detec kathryn. No flow-limiting stenosis or vascular malformation identified. Incidentally noted achalasia of the left A1 segment. Antegrade flow is seen in the vertebral arteries. The vertebral arteries are codominant. The visualized dural venous sinuses are grossly patent. IMPRESSION: No evidence of large vessel occlusion or flow-limiting stenosis.
[2023-06-29 19:35] LABS: Absolute Lymphocytes (CBC) 2.1 K/uL (0.7-4.9); Hematocrit 37.1 % (36.0-45.0); Lymphocytes % 36.7 % (15.3-44.8); MCV 89.4 fL (80-100); MPV 7.8 fL (7.6-11.3); Platelets 285 thou/uL (152-406); RBC Red Blood Cell Count 4.15 M/uL (3.86-4.86)
[2023-06-29 19:46] LABS: Protime INR 1.02
[2023-06-29 20:26] LABS: Potassium 4.2 mEq/L (3.5-5.1)
[2023-06-29] MEDS ORDERED: ATORVASTATIN 20 MG TAB PO SCH (21:00)
[2023-06-30] MEDS: KETOROLAC 30 MG/ML INJ IV PRN ×2 (00:57→16:10)
[2023-06-30] MEDS: METOPROLOL TAR 25 MG TAB PO SCH (06:00)
[2023-06-30 06:44] LABS: Absolute Lymphocytes (CBC) 2.1 K/uL (0.7-4.9); Hematocrit 35.6 % (36.0-45.0); Lymphocytes % 36.9 % (15.3-44.8); MPV 8.1 fL (7.6-11.3); Platelets 277 thou/uL (152-406); RBC Red Blood Cell Count 3.96 M/uL (3.86-4.86)
[2023-06-30 06:57] VITALS: BP 109/75; TEMP 98.8
[2023-06-30 07:02] LABS: Potassium 3.9 mEq/L (3.5-5.1)
[2023-06-30] MEDS ORDERED: REGADENOSON 0.4 MG/5 ML SYR IV ONE (08:00)
[2023-06-30] MEDS: ENOXAPARIN 40 MG/0.4 ML SQ SCH ×2 (09:00→10:37)
--- NOTE | 2023-06-30 09:07 | RAD REPORT ---
EXAM DESCRIPTION: MRI - Brain Wo Cont - 06/30/2023 9:00 am CLINICAL HISTORY: stroke COMPARISON: No comparisons TECHNIQUE: Sagittal T1-weighted images were obtained along with PD/heavily T2-weighted and T2-FLAIR images. Axial DWI and ADC mapping sequences were also obtained along with coronal heavily T2-weighted images were obtained. FINDINGS: No intracranial hemorrhage, mass or acute infarction. There is no edema or shift of midlin e structures. No extra-axial fluid collections. Signal voids are seen as a normal finding in the michelle r intracranial vessels. No significant white matter disease. Mastoid air cells and paranasal sinuses are clear. IMPRESSION: No acute intracranial abnormality. No evidence of acute infarct.
[2023-06-30] MEDS: ASPIRIN 325 MG TAB PO SCH (10:37)
--- NOTE | 2023-06-30 12:36 | RAD REPORT ---
EXAM DESCRIPTION: NM - Rest Stress Cardiac Imaging - 06/30/2023 12:29 pm CLINICAL HISTORY: Chest pain Chest pain. COMPARISON: <Comparisons> TECHNIQUE: The patient was administered approximately 10mCi of Tc 99m Sestamibi prior to resting SPE CT imaging of the heart. The patient was then administered approximately 30 mCi of Tc 99m Sestamibi f ollowing exercise or pharmacologic stress. Multiplanar SPECT images were reviewed. FINDINGS: No stress induced ischemic defect is seen to suggest stress induced ischemia. No fixed def ect is seen to suggest hibernating myocardium or scarred myocardium. The end diastolic volume is 41 ml, the end systolic volume is 10 ml, and the ejection fraction is 75 %. IMPRESSION: No stress induced ischemia.
--- NOTE | 2023-06-30 16:35 | P.DS ---
Admission Date: 06/29/23 Discharge Date: 06/30/23 Disposition: ROUTINE DISCHARGE Discharge Condition: FAIR Reason for Admission: chest pain - Problems (1) Chest pain Status: Acute (2) History of CVA (cerebrovascular accident) Status: Acute Brief History of Present Illness: 43-year-old -[place] female past medical history of CVA, anxiety, presented to the emergency room for chest pain. She reported chest pain is substernal radiating to her neck. She denied nausea vomiting, cough, shortness of breath, edema, dizziness. Laboratory evaluation showed troponin normal at 12.0, BNP normal 31, CBC mild anemia hemoglobin 11.6, 35.7, UA normal. Patient was hospitalized for further management. Hospital Course: Patient placed under observation on the medical floor. She was seen and evaluated by cardiology who recommended treadmill stress test with nuclear imaging. Stress test showed no reversible ischemia or fixed defect. Patient complained of left shoulder, left arm and left lower extremity numbness concerning for stroke. Stroke alert was called. CT head and MRI of the brain were all negative for acute disease. CTA head and neck did not show any vessel disease. Patient is currently asymptomatic and stable for discharge. Vital Signs/Physical Exam: Temp Pulse Resp BP Pulse Ox 98.8 F 63 16 109/75 98 06/30/23 04:00 06/30/23 04:00 06/30/23 04:00 06/30/23 04:00 06/30/23 04:00 General: Alert, In no apparent distress, Oriented x3 HEENT: Mucous membr. moist/pink Neck: Supple, JVD not distended Respiratory: Clear to auscultation bilaterally, Normal air movement Cardiovascular: No edema, Regular rate/rhythm, Normal S1 S2 Gastrointestinal: Normal bowel sounds, Soft and benign, Non-distended Musculoskeletal: No swelling Integumentary: No rashes, No cyanosis Neurological: Normal strength at 5/5 x4 extr, Cranial nerves 3-12 intact Laboratory Data at Discharge: WBC 5.80 thou/uL (4.3-10.9) 06/30/23 05:28 Hgb 11.8 g/dL (12.0-15.0) L 06/30/23 05:28 Hct 35.6 % (36.0-45.0) L 06/30/23 05:28 Plt Count 277 thou/uL (152-406) 06/30/23 05:28 PT 11.2 SECONDS (9.5-12.5) 06/29/23 19:17 INR 1.02 06/29/23 19:17 APTT 33.8 SECONDS (24.3-36.9) 06/29/23 19:17 Sodium 140 mEq/L (136-145) 06/30/23 05:28 Potassium 3.9 mEq/L (3.5-5.1) 06/30/23 05:28 BUN 7 mg/dL (7-18) 06/30/23 05:28 Creatinine 1.07 mg/dL (0.55-1.02) H 06/30/23 05:28 Glucose 89 mg/dL (74-106) 06/30/23 05:28 Magnesium 2.0 mg/dL (1.6-2.4) 06/30/23 05:28 Total Bilirubin Cancelled 06/28/23 22:07 AST Cancelled 06/28/23 22:07 ALT Cancelled 06/28/23 22:07 Alkaline Phosphatase Cancelled 06/28/23 22:07 Triglycerides 92 mg/dL (<150) 06/29/23 04:35 Cholesterol 170 mg/dL (<200) 06/29/23 04:35 HDL Cholesterol 56 mg/dL (40-60) 06/29/23 04:35 Cholesterol/HDL Ratio 3.04 06/29/23 04:35 Home Medications: Aspirin [Aspirin EC 81 MG] 81 mg PO DAILY #30 tab 06/30/23 Atorvastatin Calcium [Lipitor] 40 mg PO BEDTIME #30 tab 06/30/23 New Medications: Aspirin [Aspirin EC 81 MG] 81 mg PO DAILY #30 tab Atorvastatin Calcium [Lipitor] 40 mg PO BEDTIME #30 tab Diet: AHA Activity: Ad rachelle Followup: Unknown,U [Primary Care Provider] - 1-2 Weeks (Please call to schedule an appointment. ) Time spent managing pt's care (in minutes): 27
[2023-06-30 17:30] VITALS: O2SAT 99
--- NOTE | 2023-07-03 07:23 | TREADPHA ---
DX: CHEST PAIN Date of Study: 06/30/2023 Ht: 5' 3 " Wt: 144 lb 6.4 oz Consulting Physician: MARINA MEDICATIONS: JULIUS ASPIRIN, LIPITOR, LOVENOX, TORADOL, LOPRESSOR, MORPHINE, NITROSTAT, ZOFRAN HISTORY: 43 YEAR OLD FEMALE WITH COMPLAINTS OF CHEST PAIN. PHYSICIAL EXAMINATION: RESTING B.P.: 128/77 RESTING H.R.: 68 RESTING EKG: NORMAL SINUS RHYTHM, WITHIN NORMAL LIMITS PROTOCOL: PHARMACOLOGIC EXERCISE TIME: 3:30 B.P. AT [place]AK STRESS: 120/77 IMPRESSION: LEXISCAN STRESS TEST PERFORMED. CARDIOLITE INJECTED PER PROTOCOL. SEE NUCLEAR MEDICINE REPORT. NO SUPRAVENTRICULAR TACHYCARDIA OR VENTRICULAR TACHYCARDIA. NO ARRHYTHMIAS. PATIENT COMPLAINS OF SHORTNESS OF BREATH AND CHEST PAIN. NO ELECTROCARDIOGRAM CHANGES WITH LEXISCAN.
--- NOTE | 2023-07-03 13:15 | EKG ---
Test Date: 2023-06-29 Test Time: 15:35:48 Sales Assistant Displays: [place] MEASUREMENT RESULTS: Intervals: Rate: 66 UT: 134 QRSD: 78 QT: 378 QTc: 396 [place]: P: 56 UT: 134 QRS: 60 T: 44 INTERPRETIVE STATEMENTS: Normal sinus rhythm Normal ECG Compared to ECG 06/28/2023 23:56:26 No significant changes Electronically Signed On 07-03-23 13:12:07 CDT by Rafael Golden
== END 2023-06-30 18:31 | disposition home or self-care (01) ==
LOC: ER 21:32 → ERHOLD 06-29 02:32 → 4TH 06-29 02:40
PROVIDERS: ADMIT Internal Medicine; ATTEND Internal Medicine
DX: R07.9 Chest pain, unspecified (principal); F41.9 Anxiety disorder, unspecified; Z86.73 Personal history of transient ischemic attack (TIA), and cerebral infarction without residual deficits
CPT/HCPCS: 93005 ×3; 93017; 85025 ×3; 80048 ×3; 36415 ×2; 83735; 81025; 85610; 80061; 82947; 80076; 85730; 81015; 84484 ×3; 83880; 71275; 70496; 70498; 70450; 71045; 70551; 92610; 97116; 97161; 97530; 94760; 78452; 96375; 96374; 99285; Q9967 ×2; J2785; J1650; J3360; J2270 ×3; J7040; A9500

== ENCOUNTER 2024-09-04 02:36 | Emergency (ER) | payer BC, SELFPAY ==
[2024-09-04] MEDS ORDERED: DIPHENHYDRAMINE 50 MG/ML VIAL ONE (04:12)
[2024-09-04] MEDS ORDERED: METOCLOPRAMIDE 10 MG/2mL INJ ONE (04:12)
[2024-09-04] MEDS ORDERED: KETOROLAC 30 MG/ML INJ ONE (04:12)
[2024-09-04] MEDS ORDERED: NA CHLORIDE 0.9% 1,000 ML ONE (04:13)
[2024-09-04 06:06] LABS: Absolute Eosinophils 0.1 K/uL (0-0.5); Absolute Lymphocytes (CBC) 1.4 K/uL (0.7-4.9); Absolute Monocytes 0.5 K/uL (0.1-1.3); Absolute Neutrophil 2.4 K/uL (1.8-8.0); Albumin 3.4 g/dL (3.4-5.0); Anion Gap 6.4 mEq/L (5.0-15.0); Basophils % 0.5 % (0-1.3); Bicarbonate 25 mEq/L (21-32); Eosinophils % 1.8 % (0-4.4); Glucose Level 83 mg/dL (74-106); Hematocrit 36.5 % (36.0-45.0); Hemoglobin 11.8 g/dL (12.0-15.0); Lipase 24 U/L (13-75); Lymphocytes % 32.4 % (15.3-44.8); MCH 29.6 pg (27.0-35.0); MCHC 32.4 g/dL (32.0-36.0); MCV 91.5 fL (80-100); MPV 8.5 fL (7.6-11.3); Monocytes % 11.6 % (3.3-12.3); Neutrophils % 53.7 % (41.7-73.7); Nucleated Red Blood Cells % 0.1 % (0-0); Platelets 230 thou/uL (152-406); Potassium 3.4 mEq/L (3.5-5.1); RBC Red Blood Cell Count 3.99 M/uL (3.86-4.86); Red Cell Distribution Width 13.5 % (12.1-15.2); Sodium Level 140 mEq/L (136-145)
[2024-09-04 06:08] LABS: Glomerular Filtration Rate 62 ml/min (=/>90); Specific Gravity 1.015 (1.005-1.030); Urine Bacteria <20 /HPF (<20); Urine Bilirubin NEGATIVE (Negative); Urine Blood Negative (Negative); Urine Clarity Extremely Turbid (Clear); Urine Color Yellow (Yellow); Urine Culture Reflex Order NOT NEEDED; Urine Glucose NEGATIVE (Negative); Urine Ketones NEGATIVE (Negative); Urine Microscopic Reflex YN ORDER UMIC; Urine Mucus Slight /HPF (None Seen); Urine Nitrite NEGATIVE (Negative); Urine Protein NEGATIVE (Negative); Urine RBC <5 /HPF (None Seen); Urine Urobilinogen Normal (Normal); Urine WBC <5 /HPF (<5)
[2024-09-04 06:12] LABS: ALT/SGPT < 14 U/L (13-56); AST/SGOT 16 U/L (15-37); Albumin/Globulin Ratio 0.9 (1.1-1.8); Alkaline Phosphatase 68 U/L (45-117); BUN Blood Urea Nitrogen 6 mg/dL (7-18); Bilirubin Total 0.4 mg/dL (0.2-1.0); C-Reactive Protein < 2.90 mg/L (<3.00); Globulin 3.7 g/dL (2.3-3.5); Protein, Total 7.1 g/dL (6.4-8.2)
--- NOTE | 2024-09-04 06:57 | RAD REPORT ---
EXAMINATION: CT ABDOMEN PELVIS WITH IV CONTRAST INDICATION: Female, 44 years old, ABD PAIN COMPARISON(S): 03/21/2021 TECHNIQUE: CT acquisition of the abdomen and pelvis following the administration of IV contrast. Pedro nal and sagittal reformatted images provided. This exam was performed according to departmental dose-optimization program which includes automated exposure control, adjustment of the mA and/or kV a ccording to patient size, and/or use of iterative reconstruction technique. FINDINGS: SUPPORT DEVICES: None. LOWER CHEST: Mild basilar scarring/atelectasis. Unremarkable imaged heart. ABDOMEN AND PELVIS: Liver: Diffuse hypoenhancement relative to the spleen. Gallbladder and bile ducts: Unremarkable. Pancreas: Normal. Spleen: Normal. Adrenal glands: Normal. Kidneys and ureters: Normal. Bladder: Nondistended without evident abnormality. Reproductive organs: Unremarkable. GI tract: Small hiatal hernia. Otherwise the distal esophagus, stomach, duodenum and proximal and mid small bowel are unremarkable. The distal small bowel and large bowel from the colon to the hepatic flexure are nondilated but fluid distended with a few short air-fluid levels. The appendix and distal large bowel are normal Vessels: Unremarkable. Lymph nodes: No evident adenopathy. Peritoneum: Physiologic volume of pelvic ascites. No evidence of fluid collection or free air. Abdominal wall: No significant hernia. MUSCULOSKELETAL: No acute osseous abnormality. IMPRESSION: 1. CT appearance of large and small bowel loops can be seen in the setting of enteritis/enterocolit is. 2. Otherwise no acute abdominopelvic finding. Electronically signed by: Chiki Parra MD 09/04/2024 06:52 AM CDT RP Due to temporary technical issues with the [employer] reporting system, reports are being hira d by the in-house radiologist without review as a courtesy to ensure prompt reporting the interpreting radiologist is fully responsible for the content of the report. Transcribed Date/Time: 09/04/2024 6:57 AM
--- NOTE | 2024-09-04 07:05 | ER ---
Nurse's Notes [facility] Name: Marianna Phillips Age: 44 yrs Sex: Female : 1980 Arrival Date: 09/04/2024 Time: 02:36 Bed 6 Private MD: Diagnosis: Acute Enterocolitis Presentation: 09/04 03:05 Chief complaint: Patient states: abdominal pain at the top of belly button, nauseous. vc1 Coronavirus screen: Client denies travel out of the [place] in the last 14 days. At this time, the client does not indicate any symptoms associated with coronavirus-19. Ebola Screen: Patient negative for fever greater than or equal to 101.5 degrees Fahrenheit, and additional compatible Ebola Virus Disease symptoms Patient denies exposure to infectious person. Patient denies travel to an Ebola-affected area in the 21 days before illness onset. No symptoms or risks identified at this time. Initial Sepsis Screen: Does the patient meet any 2 criteria? No. Patient's initial sepsis screen is negative. Does the patient have a suspected source of infection? No. Patient's initial sepsis screen is negative. Risk Assessment: Do you want to hurt yourself or someone else? Patient reports no desire to harm self or others. Onset of symptoms was September 03, 2024. Activity prior to arrival: vomiting. 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 - Infectious Disease History:: Denies. - Social history:: Smoking status: Patient denies any tobacco usage or history of. - Family history:: not pertinent. Screenin:07 [facility] ED Fall Risk Assessment (Adult) History of falling in the last 3 months, vc1 including since admission No falls in past 3 months (0 pts) Confusion or Disorientation No (0 pts) Intoxicated or Sedated No (0 pts) Impaired Gait No (0 pts) Mobility Assist Device Used No (0 pt) Altered Elimination No (0 pt) Score/Fall Risk Level 0 - 2 = Low Risk Oriented to surroundings, Maintained a safe environment, Educated pt \T\ family on fall prevention, incl call for assistance when getting out of bed. Abuse screen: Denies threats or abuse. Nutritional screening: No deficits noted. Tuberculosis screening: No symptoms or risk factors identified. Assessment: 05:07 General: Appears uncomfortable, Behavior is calm, cooperative, appropriate for age. dd2 Pain: Complains of pain in epigastric area and umbilical area Pain currently is 9 out of 10 on a pain scale. Quality of pain is described as sharp. Neuro: Level of Consciousness is awake, alert, obeys commands, Oriented to person, place, time, situation, Appropriate for age. Cardiovascular: No deficits noted. Denies chest pain, Patient's skin is warm and dry. Respiratory: Airway is patent Respiratory effort is even, unlabored, Respiratory pattern is regular, symmetrical. GI: Abdomen is non-distended, Bowel sounds present X 4 quads. Abd is soft and non tender X 4 quads. : No signs and/or symptoms were reported regarding the genitourinary system. EENT: No deficits noted. No signs and/or symptoms were reported regarding the EENT system. Derm: No deficits noted. No signs and/or symptoms reported regarding the dermatologic system. Musculoskeletal: No deficits noted. No signs and/or symptoms reported regarding the musculoskeletal system. Vital Signs: 03:05 Weight 61.69 kg; Height 5 ft. 2 in. ; Pain 10/10; vc1 03:09 BP 122 / 84; Pulse 83; Resp 14; Temp 98.3; Pulse Ox 100% ; vc1 07:35 BP 117 / 73; Pulse 74; Resp 18; Temp 97.9; Pulse Ox 99% on R/A; ph 03:05 Body Mass Index 24.87 (61.69 kg, 157.48 cm) vc1 03:05 Pain Scale: Adult vc1 Santy Coma Score: 05:07 Eye Response: spontaneous(4). Motor Response: obeys commands(6). Verbal Response: dd2 oriented(5). Total: 15. 06:10 Eye Response: spontaneous(4). Motor Response: obeys commands(6). Verbal Response: sp4 oriented(5). Total: 15. ED Course: 02:46 Patient arrived in ED. gm2 02:52 Chandrakant Hollins MD is Attending Physician. sp4 03:06 Triage completed. vc1 03:06 Arm band placed on right wrist. vc1 03:48 Missed attempt(s): 22 gauge Bleeding controlled, band aid applied, catheter tip intact. oe 03:55 Inserted saline lock: 20 gauge in left antecubital area, using aseptic technique. Blood oe collected. Flushed with 10 mL NS. 04:20 RHONDA ROGERS, RN is Primary Nurse. dd2 05:07 Patient has correct armband on for positive identification. Bed in low position. Call dd2 light in reach. Side rails up X 1. Provided Education on: MEDICATIONS, CALL LIGHT, LABS AND RESULT TIMES. Client placed on continuous cardiac and pulse oximetry monitoring. NIBP monitoring applied. Door closed. Noise minimized. Lights dimmed. Warm blanket given. Pillow given. Verbal reassurance given. 05:07 No provider procedures requiring assistance completed. dd2 06:46 CT Abd/Pelvis - IV Contrast Only In Process Unspecified. EDMS 06:59 Primary Nurse role handed off by RHONDA ROGERS, RN bd 07:33 Consuelo Díaz, SHARIF is Primary Nurse. ph 07:36 IV discontinued, intact, bleeding controlled, No redness/swelling at site. Pressure ph dressing applied. Administered Medications: 04:21 Drug: Ketorolac IVP 30 mg IVP once Route: IVP; Site: left antecubital; dd2 04:36 Follow up: Response: No adverse reaction dd2 04:21 Drug: diphenhydrAMINE IVP 25 mg IVP once Route: IVP; Site: left antecubital; dd2 04:36 Follow up: Response: No adverse reaction dd2 04:21 Drug: metoCLOPramide IVP 10 mg IVP once; over 1 to 2 minutes Route: IVP; Site: left dd2 antecubital; 04:36 Follow up: Response: No adverse reaction dd2 04:21 Drug: NS 0.9% IV 1000 ml IV at 1 bolus Per protocol; to be given as a bolus over 60 dd2 minutes Route: IV; Rate: 1 bolus; Site: left antecubital; 04:36 Follow up: Response: No adverse reaction dd2 07:02 Follow up: Response: No adverse reaction; IV Status: Completed infusion; IV Intake: ph 1000ml 07:33 Drug: Ondansetron PO 4 mg PO once Route: PO; ph 07:35 Follow up: Response: No adverse reaction; Medication administered at discharge. ph 07:35 Drug: Dicyclomine PO 20 mg PO once Route: PO; ph 07:35 Follow up: Response: No adverse reaction; Medication administered at discharge. ph 07:35 Drug: Acetaminophen PO 1000 mg PO once Route: PO; ph 07:35 Follow up: Response: No adverse reaction; Medication administered at discharge. ph 07:35 Drug: Diphenoxylate-Atropine PO 1 tabs PO once Route: PO; ph 07:35 Follow up: Response: No adverse reaction; Medication administered at discharge. ph Medication: 05:07 VIS not applicable for this client. dd2 Intake: 07:02 IV: 1000ml; Total: 1000ml. ph Outcome: 07:04 Discharge ordered by . sp4 07:36 Discharged to home ambulatory, with friend, ph 07:36 Condition: good 07:36 Discharge instructions given to patient, Instructed on discharge instructions, follow up and referral plans. medication usage, Demonstrated understanding of instructions, follow-up care, medications, Prescriptions given X 4, 07:36 Patient left the ED. ph Signatures: Dispatcher [employer] EDMS Mariama Robbins Patricia RN RN Chirag De La Paz oe Elizabeth Alonzo RN RN 1 Chandrakant Hollins MD MD sp4 Lois Villalobos DIANA, RN RN dd2 Corrections: (The following items were deleted from the chart) 03:59 03:58 Inserted saline lock: 20 gauge in left antecubital area, using aseptic technique. oe Blood collected. Flushed with 10 mL NS oe
--- NOTE | 2024-09-04 07:05 | EDPHYS ---
Physician Documentation [facility] Name: Marianna Phillips Age: 44 yrs Sex: Female : 1980 Arrival Date: 09/04/2024 Time: 02:36 Bed 6 Private MD: ED Physician Chandrakant Hollins HPI: 09/04 06:10 This 44 yrs old Black Female presents to ER via Wheelchair with complaints of Abdominal sp4 Pain. 06:10 Patient presents with acute onset periumbilical abdominal pain starting yesterday sp4 evening at 3 PM. [employer]: 03:07 LMP 08/21/2024, unknown vc1 Historical: - Allergies: 03:06 No Known Allergies; vc1 - PMHx: 03:06 CVA; Panic Attacks; vc1 - PSHx: 03:06 None; vc1 - Immunization history:: Client reports receiving the 2nd dose of the Covid vaccine. - Infectious Disease History:: Denies. - Social history:: Smoking status: Patient denies any tobacco usage or history of. - Family history:: not pertinent. ROS: 06:10 Constitutional: Negative for fever, chills, and weight loss, positive periumbilical sp4 abdominal pain 06:10 All other systems are negative, Exam: 06:10 Constitutional: This is a well developed, well nourished patient who is awake, alert, sp4 and in no acute distress. Head/Face: Normocephalic, atraumatic. Eyes: Pupils equal round and reactive to light, extra-ocular motions intact. Lids and lashes normal. Conjunctiva and sclera are not injected. Cornea within normal limits. Periorbital areas with no swelling, redness, or edema. ENT: Nares patent. No nasal discharge, no septal abnormalities noted. Tympanic membranes are normal and external auditory canals are clear. Oropharynx with no redness, swelling, or masses, exudates, or evidence of obstruction, uvula midline. Mucous membranes moist. Neck: Trachea midline, no thyromegaly or masses palpated, and no cervical lymphadenopathy. Supple, full range of motion without nuchal rigidity, or vertebral point tenderness. Chest/axilla: Normal chest wall appearance and motion. Nontender with no deformity. No lesions are appreciated. Cardiovascular: Regular rate and rhythm with a normal S1 and S2. No gallops, murmurs, or rubs. Normal PMI, no JVD. No pulse deficits. Respiratory: Lungs have equal breath sounds bilaterally, clear to auscultation and percussion. No rales, rhonchi or wheezes noted. No increased work of breathing, no retractions or nasal flaring. Abdomen/GI: Soft, with normal bowel sounds. No distension or tympany. No guarding or rebound. No evidence of tenderness throughout. Back: No spinal tenderness. No costovertebral tenderness. Skin: Warm, dry with normal turgor. Normal color with no rashes, no lesions, and no evidence of cellulitis. MS/ Extremity: Pulses equal, no cyanosis. Neurovascular intact. Full, normal range of motion. Neuro: Awake and alert, GCS 15, oriented to person, place, time, and situation. Cranial nerves II-XII grossly intact. Motor strength 5/5 in all extremities. Sensory grossly intact. Psych: Awake, alert, with orientation to person, place and time. Behavior, mood, and affect are within normal limits Vital Signs: 03:05 Weight 61.69 kg; Height 5 ft. 2 in. ; Pain 10/10; vc1 03:09 BP 122 / 84; Pulse 83; Resp 14; Temp 98.3; Pulse Ox 100% ; vc1 07:35 BP 117 / 73; Pulse 74; Resp 18; Temp 97.9; Pulse Ox 99% on R/A; ph 03:05 Body Mass Index 24.87 (61.69 kg, 157.48 cm) vc1 03:05 Pain Scale: Adult vc1 Santy Coma Score: 05:07 Eye Response: spontaneous(4). Motor Response: obeys commands(6). Verbal Response: dd2 oriented(5). Total: 15. 06:10 Eye Response: spontaneous(4). Motor Response: obeys commands(6). Verbal Response: sp4 oriented(5). Total: 15. MDM: 02:58 Medical Screening Exam initiated sp4 06:55 ED course: EXAMINATION: CTABDOMEN PELVIS WITH IV CONTRAST INDICATION: Female, 44 years sp4 old, ABD PAIN COMPARISON(S): 03/21/2021 TECHNIQUE: CT acquisition of the abdomen and pelvis following the administration of IV contrast. Coronal and sagittal reformatted images provided. This exam was performed according to departmental dose-optimization program which includes automated exposure control, adjustment of the mA and/or kV according to patient size, and/or use of iterative reconstruction technique. FINDINGS: SUPPORT DEVICES: None. LOWER CHEST: Mild basilar scarring/atelectasis. Unremarkable imaged heart. ABDOMEN AND PELVIS: Liver: Diffuse hypoenhancement relative to the spleen. Gallbladder and bile ducts: Unremarkable. Pancreas: Normal. Spleen: Normal. Adrenal glands: Normal. Kidneys and ureters: Normal. Bladder: Nondistended without evident abnormality. Reproductive organs: Unremarkable. GI tract: Small hiatal hernia. Otherwise the distal esophagus, stomach, duodenum and proximal and mid small bowel are unremarkable. The distal small bowel and large bowel from the colon to the hepatic flexure are nondilated but fluid distended with a few short air-fluid levels. The appendix and distal large bowel are normal Vessels: Unremarkable. Lymph nodes: No evident adenopathy. Peritoneum: Physiologic volume of pelvic ascites. No evidence of fluid collection or free air. Abdominal wall: No significant hernia. MUSCULOSKELETAL: No acute osseous abnormality. IMPRESSION: 1. CT appearance of large and small bowel loops can be seen in the setting of enteritis/enterocolitis. 2. Otherwise no acute abdominopelvic finding. . 07:01 Differential diagnosis: bowel obstruction, cholecystitis, Cholelithiasis, sp4 diverticulitis, Dysmenorrhea, Endometriosis. Data reviewed: vital signs, nurses notes, lab test result(s), radiologic studies, CT scan. Consideration of Admission/Observation Escalation of care including admission/observation considered. ED course: Will be stable for discharge home with Bentyl, ibuprofen, ondansetron, Clear liquid diet, also Lomotil. 09/04 02:52 Order name: CBC with Diff; Complete Time: 06:13 sp4 09/04 02:52 Order name: CMP; Complete Time: 06:48 sp4 09/04 02:52 Order name: Lipase; Complete Time: 06:48 sp4 09/04 02:52 Order name: Test, Urine; Complete Time: 06:13 sp4 09/04 02:52 Order name: Urinalysis w/ reflexes; Complete Time: 06:13 sp4 09/04 03:17 Order name: CRP; Complete Time: 06:48 sp4 09/04 03:16 Order name: CT Abd/Pelvis - IV Contrast Only sp4 09/04 02:52 Order name: IV Saline Lock; Complete Time: 04:08 sp4 09/04 02:52 Order name: Labs collected and sent; Complete Time: 04:08 sp4 09/04 04:29 Order name: Misc. Order: recollect labs; Complete Time: 05:51 kmf Administered Medications: 04:21 Drug: Ketorolac IVP 30 mg IVP once Route: IVP; Site: left antecubital; dd2 04:36 Follow up: Response: No adverse reaction dd2 04:21 Drug: diphenhydrAMINE IVP 25 mg IVP once Route: IVP; Site: left antecubital; dd2 04:36 Follow up: Response: No adverse reaction dd2 04:21 Drug: metoCLOPramide IVP 10 mg IVP once; over 1 to 2 minutes Route: IVP; Site: left dd2 antecubital; 04:36 Follow up: Response: No adverse reaction dd2 04:21 Drug: NS 0.9% IV 1000 ml IV at 1 bolus Per protocol; to be given as a bolus over 60 dd2 minutes Route: IV; Rate: 1 bolus; Site: left antecubital; 04:36 Follow up: Response: No adverse reaction dd2 07:02 Follow up: Response: No adverse reaction; IV Status: Completed infusion; IV Intake: ph 1000ml 07:33 Drug: Ondansetron PO 4 mg PO once Route: PO; ph 07:35 Follow up: Response: No adverse reaction; Medication administered at discharge. ph 07:35 Drug: Dicyclomine PO 20 mg PO once Route: PO; ph 07:35 Follow up: Response: No adverse reaction; Medication administered at discharge. ph 07:35 Drug: Acetaminophen PO 1000 mg PO once Route: PO; ph 07:35 Follow up: Response: No adverse reaction; Medication administered at discharge. ph 07:35 Drug: Diphenoxylate-Atropine PO 1 tabs PO once Route: PO; ph 07:35 Follow up: Response: No adverse reaction; Medication administered at discharge. ph Disposition Summary: 09/04/24 07:04 Discharge Ordered Notes: Location: Home sp4 Problem: new sp4 Symptoms: have improved sp4 Condition: Stable sp4 Diagnosis - Acute Enterocolitis sp4 Followup: sp4 - With: Private Physician - When: 7 - 10 days - Reason: Recheck today's complaints Discharge Instructions: - Discharge Summary Sheet sp4 - Viral Gastroenteritis, Adult, [id number] sp4 Forms: - Work release form ph - Patient Portal Instructions sp4 Prescriptions: - Ibuprofen 800 mg Oral Tablet - take 1 tablet ORAL route every 8 hours As needed take with food; 30 tablet; sp4 Refills: 0, Product Selection Permitted - Lomotil 2.5-0.025 mg Oral tablet - take 1 tablet ORAL route every 6 hours As needed; 30 tablet; Refills: 0, sp4 Product Selection Permitted - dicyclomine 20 mg Oral tablet - take 1 tablet ORAL route 3 times per day PRN abdominal pain; 30 tablet; sp4 Refills: 0, Product Selection Permitted - ondansetron 8 mg Oral Tablet,disintegrating - take 1 tablet ORAL route every 8 hours PRN nausea; 30 tablet; Refills: 0, sp4 Product Selection Permitted Signatures: Dispatcher [employer] Consuelo Matos RN RN Elizabeth Alonzo RN RN vc1 Chandrakant Hollins MD MD sp4 Merline Bhagat RHONDA Lorenzana RN RN dd2
[2024-09-04] MEDS ORDERED: ONDANSETRON 4 MG (ODT) TAB ONE (07:24)
[2024-09-04] MEDS ORDERED: ACETAMINOPHEN 500 MG TAB ONE (07:24)
[2024-09-04] MEDS ORDERED: DICYCLOMINE HCL 10 MG CAP ONE (07:24)
[2024-09-04] MEDS ORDERED: DIPHENOX/ATROP SULF 1 TAB PO ONE (07:25)
[2024-09-04 09:27] VITALS: BP 117/73; TEMP 97.9; O2SAT 99
== END 2024-09-04 07:36 | disposition home or self-care (01) ==
LOC: ER 02:36
DX: K52.9 Noninfective gastroenteritis and colitis, unspecified (principal)
CPT/HCPCS: 36415; 74177; 80053; 81001; 81025; 83690; 85025; 86140; 96361; 96374; 96375; 99284; J1200; J2765; J7030; Q0162; Q9967